=== PATIENT | male | born 1940 | race Caucasian/White ===

== ENCOUNTER 2017-07-22 16:11 | Observation (INO) | payer MEDICARE ==
[2017-07-22] MEDS ORDERED: Morphine 4 MG/ML Carpuject ONE (16:27)
[2017-07-22 16:43] LABS: #Basophils 0.1 thou/uL (0.0-0.2); #Eosinphils 0.3 thou/uL (0.0-0.7); #Lymphocytes 2.1 thou/uL (1.20-3.40); #Monocytes 0.9 thou/uL (0.11-0.59); #Neutrophils 7.2 thou/uL (1.40-6.50); %Basophils 0.7 % (0.0-1.0); %Eosinophils 2.4 % (0.0-10.0); %Lymphocytes 19.9 % (21.0-51.0); %Monocytes 8.5 % (0.0-10.0); %Neutrophils 68.5 % (42.0-75.0); Hemoglobin 14.1 g/dL (14.0-18.0); Mean Corpuscular HGB CONC 33.2 g/dL (32.0-36.0); Mean Corpuscular Hemoglobin 33.5 pg (27.0-31.0); Mean Platelet Volume 7.1 fL (7.4-10.4); Platelet Count 156 thou/uL (130-400); RBC Distribution Width 12.1 % (11.5-14.5); Red Blood Cell (RBC) Count 4.22 mill/uL (4.70-6.10); White Blood Cell (WBC) Count 10.6 thou/uL (4.8-10.8)
[2017-07-22 17:04] LABS: Anion Gap 16 mmol/L (10-20); BUN (Urea Nitrogen) 27 mg/dL (8.4-25.7); Calc. Creatinine Clearance 0 mL/min (70-130); Calcium 8.8 mg/dL (7.8-10.44); Carbon Dioxide 27 mmol/L (23-31); Chloride 99 mmol/L (98-107); Estimated GFR-MDRD 46; Glucose 98 mg/dL (83-110); Potassium 4.5 mmol/L (3.5-5.1); Sodium 137 mmol/L (136-145)
[2017-07-22 18:17] LABS: Bilirubin Negative (Negative); Blood, Urine Negative (Negative); Clarity CLEAR (Clear); Glucose, Urine (Dipstick) Negative (Negative); Leukocyte Negative (Negative); Nitrite Negative (Negative); Protein, Urine (Dipstick) Negative (Neg-Trace); Specific Gravity, Urine 1.016 (1.002-1.036); Urobilinogen 0.2 mg/dL (0.2-1.0)
[2017-07-22] MEDS ORDERED: Sodium Chloride 0.9% 1,000 ML IV SCH (19:47)
[2017-07-22] MEDS ORDERED: Ondansetron ODT 4 MG TAB SL PRN (19:47)
[2017-07-22] MEDS ORDERED: Ondansetron HCl/PF 4 MG/2 ML Vial IVP PRN (19:47)
[2017-07-22] MEDS ORDERED: Melatonin 3 MG TAB PO PRN (19:50)
[2017-07-22] MEDS ORDERED: Ketorolac Tromethamine 30 MG/ML VIAL IVP PRN (19:50)
[2017-07-22] MEDS ORDERED: Guaifenesin DM 100-10/5 ML UDCUP PO PRN (19:50)
[2017-07-22] MEDS ORDERED: traMADol HCl 50 MG TAB PO PRN (19:56)
[2017-07-22] MEDS ORDERED: Morphine 2 MG/ML SYRINGE SLOW IVP PRN (19:57)
[2017-07-22] MEDS ORDERED: cefTRIAXone\\ROCEPHIN 1 GM in Sodium Chloride 0.9% 100 ML IVPB SCH (20:00)
[2017-07-22] MEDS: traMADol HCl 50 MG TAB PO PRN (21:12)
[2017-07-22] MEDS: Sodium Chloride 0.9% 1,000 ML IV SCH (21:13)
[2017-07-22] MEDS: Tamsulosin HCl 0.4 MG CAP PO SCH ×2 (21:13→21:49)
[2017-07-22] MEDS: cefTRIAXone\\ROCEPHIN 1 GM, Syringe 0.4 ML in Sterile Water 9.6 ML SLOW IVP SCH (21:14)
[2017-07-22] MEDS: Famotidine 20 MG TAB PO SCH (21:14)
--- NOTE | 2017-07-22 21:38 | HP ---
REASON FOR ADMISSION: Bilateral hydronephrosis with right flank pain. HISTORY OF PRESENTING ILLNESS: The patient gives history of having off and on flank pain on the righ t side with radiation to the groin. These pains would last anywhere from 5-10 minutes. There was no relief with anything he did. He has also had some dark urine and mild fever from last 2 days per darian brasher. The patient states he has had stones in the past in his kidneys and has not really bothered h im. The last he knows was a year back. Currently, there is no flank pain at present. No complaints of chest pain, palpitation, PND or orthopnea. The patient states he ambulates in the house. He als o does mention that he had flu with fever of 102. This was not confirmed by any test, but the patien t knew he had flu. He tried taking wilson tea, Naprosyn and aspirin and he got over it 1 week back, but still has some bronchitis associated with it. PAST MEDICAL AND SURGICAL HISTORY: History of coronary artery disease with prior stent. Last cathet erization done here in 09/2012 showed his OM1 branch was completely occluded. His echo done in 10/19 13 showed EF of 25%. The patient states after that he has had a stent placed and he cannot recall wh ere it was done. History of seizure disorder, prior history of CVA with no residual defects, history of chronic sinusitis with prior mastoid surgery, prior history of peptic ulcer disease, COPD, glauco ma, bilateral carotid stenosis with carotid endarterectomy done on the right side in 04/[address] Fili anna, hypertension, bipolar disorder, history of atrial fibrillation, history of benign prostatic hyp ertrophy, history of V-tach, percutaneous closure of PFO, defibrillator, inguinal hernia repair, card iac ablation for SVT, peptic ulcer surgery done in 1980. CURRENT MEDICATIONS: Please note, the patient cannot recall all of his medications, but he knows he is taking phenytoin 300 mg p.o. at bedtime, clonidine 0.1 mg p.o. at bedtime, DuoNebs p.r.n., and asp irin twice daily. He gets all his medications from [facility] in [place] and will try to obtain the sa me. ALLERGIES: The patient is allergic to ACETAMINOPHEN, AMIODARONE, NORVASC, BETA BLOCKERS, CALCIUM SASHA NNEL BLOCKERS, DEMEROL, DIOVAN, and LEVAQUIN. PERSONAL HISTORY: Does not abuse alcohol or drugs. Does not smoke. FAMILY HISTORY: Father at the age of 59 years, he has had history of heart disease. Mother d at the age of 73 years, she has had dementia. REVIEW OF SYSTEMS: The following complete review of systems was negative, unless otherwise mentioned in the HPI or below: Constitutional: Weight loss or gain, ability to conduct usual activities. Skin: Rash, itching. Eyes: Double vision, pain. ENT/Mouth: Nose bleeding, neck stiffness, pain, tenderness. Cardiovascular: Palpitations, dyspnea on exertion, orthopnea. Respiratory: Shortness of breath, wheezing, cough, hemoptysis, fever or night sweats. Gastrointestinal: Poor appetite, abdominal pain, heartburn, nausea, vomiting, constipation, or diarr hea. Genitourinary: Urgency, frequency, dysuria, nocturia. Musculoskeletal: Pain, swelling. Neurologic/Psychiatric: Anxiety, depression. Allergy/Immunologic: Skin rash, bleeding tendency. PHYSICAL EXAMINATION: GENERAL: The patient is a 76-year-old male, who is currently not in any acute distress. VITAL SIGNS: Blood pressure 130/70, pulse 70 per minute, respiratory rate 16 per minute, temperature 98.6 degrees Fahrenheit, saturating 97% on room air. NECK: Supple, no elevated JVD. HEENT: Eyes: Extraocular muscles are intact. Pupils are reacting to light. Oral cavity: Mucous m embranes are dry. No exudates or congestion. CARDIOVASCULAR SYSTEM: S1, S2 heard. Regular rhythm. RESPIRATORY SYSTEM: Air entry 1+ bilateral. Scattered rhonchi plus no rales or wheezes. ABDOMEN: Soft, bowel sounds heard. No tenderness, rigidity or guarding. No CVA angle tenderness at present. EXTREMITIES: No peripheral edema or calf tenderness. VASCULAR SYSTEM: Peripheral pulses 1+ bilateral. No ischemic ulcerations or gangrene. CENTRAL NERVOUS SYSTEM: No gross focal deficits seen. The patient is alert and oriented well. PSYCHIATRIC SYSTEM: The patient's mood is euthymic. No hallucinations or delusions. LABORATORY AND X-RAY FINDINGS: White count of 10, H&H 14 and 42, platelet count 156, MCV is 101 with 68% neutrophils. Electrolytes are stable. BUN 27, creatinine 1.4. Serum bicarbonate is 27. UA sh ows trace blood with trace leukocyte esterase. Abdominal pelvic CAT scan done at [facility] from ere he was transferred here shows severe bilateral hydronephrosis, right hydronephrosis with a 4-mm u reteral calculus at the S1 level. There is severe stranding around the kidneys suggestive of high gr griffin obstruction. There is also severe left hydronephrosis with hydroureter all the way to the left U VJ. No stone is seen on the left side. This is a new finding when compared to prior CAT scan done i 2014. EKG done shows paced rhythm at 70 beats per minute, has a wide QRS, duration nearly 134 mill iseconds. CLINICAL IMPRESSION AND PLAN: The patient will be under observation on medical floor for bilateral h ydronephrosis with likely postobstructive uropathy with a history of prostatic hyperplasia. We will try to place a Jack catheter. Dr. Beth Galvan, urologist, has been consulted by ER physician in e ER. We will continue him on normal saline at 60 mL per hour along with his phenytoin and Toradol p .r.n. for ureteric colic. He has been placed on Flomax 0.4 mg twice daily by Dr. Galvan. The patien t is allergic to LEVAQUIN and we will place him on ceftriaxone 1 gram daily with stat urine and blood cultures as well. The patient has low ejection fraction of around 25% based on prior echo done in . He follows up with Dr. Ross at [facility]. He also sees Dr. Roque for Nephr ology. Code status was discussed with patient and he does not want to be resuscitated. His power of litigation attorney associate is his daughter or his fiancee, either one is fine with him.
[2017-07-22 22:34] VITALS: BMI 28.2
[2017-07-23] MEDS: traMADol HCl 50 MG TAB PO PRN (01:53)
[2017-07-23 05:30] LABS: #Eosinphils 0.2 thou/uL (0.0-0.7); #Lymphocytes 1.5 thou/uL (1.20-3.40); #Monocytes 0.7 thou/uL (0.11-0.59); #Neutrophils 5.6 thou/uL (1.40-6.50); %Basophils 0.5 % (0.0-1.0); %Eosinophils 2.2 % (0.0-10.0); %Lymphocytes 18.3 % (21.0-51.0); %Monocytes 8.9 % (0.0-10.0); Hemoglobin 12.4 g/dL (14.0-18.0); Mean Corpuscular HGB CONC 34.2 g/dL (32.0-36.0); Mean Corpuscular Hemoglobin 34.6 pg (27.0-31.0); Mean Platelet Volume 7.2 fL (7.4-10.4); Platelet Count 137 thou/uL (130-400); RBC Distribution Width 12.1 % (11.5-14.5); Red Blood Cell (RBC) Count 3.57 mill/uL (4.70-6.10)
[2017-07-23 05:46] LABS: Anion Gap 13 mmol/L (10-20); BUN (Urea Nitrogen) 24 mg/dL (8.4-25.7); Calc. Creatinine Clearance 50 mL/min (70-130); Calcium 8.4 mg/dL (7.8-10.44); Carbon Dioxide 26 mmol/L (23-31); Chloride 100 mmol/L (98-107); Estimated GFR-MDRD 50; Glucose 126 mg/dL (83-110); Potassium 4.3 mmol/L (3.5-5.1); Sodium 135 mmol/L (136-145)
[2017-07-23] MEDS: Famotidine 20 MG TAB PO SCH ×2 (08:30→22:23)
[2017-07-23] MEDS: Ubidecarenone 50 MG CAP PO SCH (08:30)
[2017-07-23] MEDS: Tamsulosin HCl 0.4 MG CAP PO SCH ×3 (08:31→22:26)
--- NOTE | 2017-07-23 11:54 | PDOC.PN ---
- Subjective Encounter Start Date: 07/23/17 Encounter Start Time: 09:45 Subjective: no new complaints -: says is planning some procedure this afternoon -: no abd pain now - Objective Resuscitation Status: Resuscitation Status DNR:Do Not Resuscitate MAR Reviewed: Yes Vital Signs & Weight: Vital Signs (12 hours) Temp Pulse Resp BP Pulse Ox 07/23/17 08:00 97.7 F 72 12 147/76 H 91 L 07/23/17 04:00 98.3 F 70 18 135/76 93 L 07/23/17 00:36 98.7 F 69 18 111/68 92 L Weight Weight 175 lb 0.047 oz I&O: 07/22/17 07/23/17 07/24/17 06:59 06:59 06:59 Output Total 500 Balance -500 Result Diagrams: 07/23/17 04:48 07/23/17 04:48 Phys Exam - Physical Examination HEENT: PERRLA, moist MMs Neck: no JVD, supple Respiratory: no wheezing, no rales Cardiovascular: RRR, no significant murmur Gastrointestinal: soft, non-tender, positive bowel sounds Musculoskeletal: no edema, pulses present Neurological: non-focal, moves all 4 limbs Psychiatric: A&O x 3 Dx/Plan (1) b/l hydronephrosis Status: Acute (2) Left ureteral stone Code(s): N20.1 - CALCULUS OF URETER Status: Acute (3) CAD (coronary artery disease) Code(s): I25.10 - ATHSCL HEART DISEASE OF [place] CORONARY ARTERY W/O ANG PCTRS Status: Chronic Qualifiers: Coronary Disease-Associated Artery/Lesion type: [place] artery [place] vs. transplanted heart: [place] heart Associated angina: without angina Qualified Code(s): I25.10 - Atherosclerotic heart disease of [place] coronary artery without angina pectoris (4) HTN (hypertension) Code(s): I10 - ESSENTIAL (PRIMARY) HYPERTENSION Status: Chronic Qualifiers: Hypertension type: essential hypertension Qualified Code(s): I10 - Essential (primary) hypertension - Plan on ceftriaxone and gentle iv hydration -: dc plan per urology advice -: pt is under observation status, may switch to inpt per urology advice if he -: -remains in hospital tonight -: urine cs shows no growth * . Review of Systems - Medications/Allergies Allergies/Adverse Reactions: Allergies Allergy/AdvReac Type Severity Reaction Status Date / Time acetaminophen [From Tylenol] Allergy Unknown Verified 12/11/12 22:15 amiodarone Allergy Verified 04/01/15 09:34 amlodipine Allergy Verified 07/22/17 22:40 ARB-Angiotensin Receptor Allergy Verified 04/01/15 09:35 Antagonist Calcium Channel Blocking Allergy Verified 07/22/17 22:40 Agent Dilt levofloxacin [From Levaquin] Allergy Verified 07/22/17 22:40 meperidine HCl [From Demerol] Allergy N/V Verified 04/01/15 09:33 valsartan [From Diovan] Allergy Verified 07/23/17 00:31 BETA BLOCKERS Allergy Uncoded 04/01/15 09:35 Medications: Current Medications Albuterol/Ipratropium (Duoneb) 3 ml NEB Q6H PRN PRN Reason: SOB &/or Wheezing Coenzyme Q10 (Coenzyme Q10) 200 mg PO DAILY [facility] Last Admin: 07/23/17 08:30 Dose: Not Given Famotidine (Pepcid) 20 mg PO BID [facility] Last Admin: 07/23/17 08:30 Dose: Not Given Guaifenesin/Dextromethorphan (Robitussin Dm) 15 ml PO Q4H PRN PRN Reason: Cough Sodium Chloride (Normal Saline 0.9%) 1,000 mls @ 60 mls/hr IV .[id number] [facility] Last Admin: 07/22/17 21:13 Dose: 1,000 mls Ceftriaxone Sodium 1 gm/ (Syringe 0.4 ml/ Sterile Water) 10 mls @ 120 mls/hr SLOW IVP 2100 [facility] Last Admin: 07/22/17 21:14 Dose: 10 mls Isosorbide Mononitrate (Imdur Er) 30 mg PO BID [facility] Last Admin: 07/23/17 08:31 Dose: 30 mg Melatonin (Melatonin) 6 mg PO HSPRN PRN PRN Reason: Insomnia Morphine Sulfate (Morphine) 2 mg SLOW IVP Q3H PRN PRN Reason: Pain Phenytoin Sodium (Dilantin Er) 300 mg PO HS [facility] Last Admin: 07/22/17 21:14 Dose: 300 mg Tamsulosin HCl (Flomax) 0.4 mg PO BID [facility] Last Admin: 07/23/17 08:31 Dose: 0.4 mg Tramadol HCl (Ultram) 50 mg PO Q4H PRN PRN Reason: Moderate Pain (4-6) Last Admin: 07/23/17 01:53 Dose: 50 mg Tramadol HCl (Ultram) 100 mg PO Q4H PRN PRN Reason: Severe Pain (7-10) Last Admin: 07/23/17 11:18 Dose: 100 mg
[2017-07-23] MEDS: Carvedilol 3.125 MG TAB PO SCH (13:34)
[2017-07-23] MEDS: Sodium Chloride 0.9% 1,000 ML IV SCH (13:35)
--- NOTE | 2017-07-23 13:44 | CON ---
DATE OF CONSULTATION: 07/23/2017 REASON FOR CONSULTATION: Consultation was requested for right ureteral stone with renal colic as well as left hydronephrosis. HISTORY OF PRESENT ILLNESS: Patient is a 76-year-old male who had right renal colic since with nausea and vomiting and gross hematuria, but no fever , chills, or dysuria. He presented to the emergency room where he was still having significant pain and a CT found the stone with right obstruction, but also what appears to be incidental left hydronephrosis. He had no left-sided pain whatsoever and did not recently pass a stone that he is aware. PAST MEDICAL HISTORY: Significant for stones he had years ago and did not require intervention for the past month around, coronary artery disease with an OK last in 12/2016. Left bundle branch block, TIAs, CVA, epilepsy, bipolar, borderline diabetes, glaucoma, hypertension, COPD, CHF, renal insufficiency, carotid stenosis. PAST SURGICAL HISTORY: Includes defibrillator, mastoid, and sinus surgery, inguinal hernia surgery, cardiac ablation, cardiac stent last in 01/2017 which was the only time and a surgery for his ulcer disease in 1980, right knee surgery, right foot surgery, tonsils, and left toe amputation. MEDICATIONS: Include albuterol inhaler, coenzyme Q10, isosorbide mononitrate 30 mg b.i.d., melatonin 6 mg at bedtime, Dilantin 300 mg at bedtime, aspirin 325 mg b.i.d., and 81 mg as needed for inflammatory pain. ALLERGIES: Multiple blood pressure medicines give him significant arrhythmias including AMIODARONE and CALCIUM CHANNEL BLOCKERS, BETA BLOCKERS give him bronchospasm. He denies any allergy to sulfa. SOCIAL HISTORY: He has at least a [id number] history and quit about 10 years ago, but still smokes once a month or so. REVIEW OF SYSTEMS: He had a colonoscopy 3-5 years ago with polyps and he thinks he is due pretty soon. He has been screened for prostate cancer with PSA and DREs that have been normal. He denies any chest pain. He has an improving cough, because he had the flu recently. He denies shortness of breath , diarrhea, or constipation. FAMILY HISTORY: Significant for mom at 73 of dementia. Dad at 59 of cardiac disease. PHYSICAL EXAMINATION: GENERAL: He appears comfortable in bed. He has been afebrile. Temperature 98.3, heart rate 70, blood pressure 135/76, respiratory rate 18, satting 93% on room air. HEENT: He has no scleral icterus. NECK: No obvious JVD. SKIN: He has good color. HEART: Regular rate and rhythm with no murmurs, gallops, or rubs. LUNGS: Relatively clear to auscultation bilaterally without significant inspiratory effort. ABDOMEN: Softly distended, nontender. There is mild right CVA tenderness, none on the left. GENITOURINARY: Testes were descended bilaterally without masses. Phallus was circumcised without lesions. No meatal stenosis. Digital rectal exam revealed a small and flat prostate without any nodules or induration. No sidewall fixation. EXTREMITIES: He had no lower extremity edema. LABORATORY VALUES: Reveal a dilution of his H and H from overnight from 14.1- 12.4 for hemoglobin and 42.6-36.1 on hematocrit. His BUN and creatinine were 27 and 1.47 and creatinine is improved at 1.37 overnight. Urinalysis, which is a dip only, was all negative. CT scan from 07/22/2017 without contrast reviewed personally revealed 4 flecks ( 1-2mm) in the left kidney and 5 [place] (1-2mm) the right kidney. None of them large enough to be concerned about. He also has a right 3 x 5 mm stone at the crossing vessels, cannot tell on donkey ride operator, no other stones noted. +Enlarged prostate and thickened bladder. ASSESSMENT AND PLAN: In assessment, we have a 76-year-old male with obstructing right ureteral stone and incidental left hydronephrosis with an improved creatinine and adequate urine output of 500 overnight. We reviewed ureteroscopy in getting the small stone and leaving him with a stent. I also reviewed doing a retrograde pyelogram and possible dilation and/or stent placement on the left. So there is the possibility of leaving him with 2 ureteral stents upon waking. Risks and benefits everything reviewed. All questions answered. Plan for right ureteroscopy and stone extraction and left retrograde pyelogram for later today. JANINE
[2017-07-23] MEDS ORDERED: Iothalamate Meglumine 60% 50 ML VIAL FS ONE ×2 (14:43→16:03)
[2017-07-23] MEDS ORDERED: Fentanyl 100 MCG/2 ML VIAL ONE ×2 (15:04→17:35)
[2017-07-23] MEDS ORDERED: Dexamethasone 20 MG/5 ML VIAL ONE (15:57)
[2017-07-23] MEDS ORDERED: PROPOFOL 200 MG/20 ML VIAL ONE (15:57)
[2017-07-23] MEDS ORDERED: Metoclopramide HCl 10 MG/2 ML VIAL ONE (15:57)
[2017-07-23] MEDS ORDERED: Lidocaine 1% PF 5 ML VIAL ONE (15:57)
[2017-07-23] MEDS ORDERED: Ondansetron HCl/PF 4 MG/2 ML Vial ONE (15:57)
[2017-07-23] MEDS ORDERED: Promethazine HCl 25 MG/ML VIAL IM PRN (16:45)
[2017-07-23] MEDS ORDERED: Promethazine HCl 25 MG/ML VIAL SLOW IVP PRN (16:45)
[2017-07-23] MEDS ORDERED: Ondansetron HCl/PF 4 MG/2 ML Vial IVP PRN (16:45)
--- NOTE | 2017-07-23 18:45 | RAD ---
RETROGRADE UROGRAM: Date: 07-23-17 Provided Clinical History: Stent placement. FINDINGS: Spot fluoroscopic image of the abdomen is submitted. Patient respiratory motion limits evaluation. Th e exam is not labelled with respect to side. A ureteral stent overlies the abdomen, the distal coil o f which overlies the expected location of the urinary bladder and the proximal coil overlies the expe cted location of what is presumed to be the right kidney based on the recent CT examination. Collecti ng system contrast is presumed involving the right kidney which demonstrates probable dilatation. Deg enerative changes are seen involving the spine. Calcifications are noted in the pelvis. IMPRESSION: As above. POS: DIEGO
--- NOTE | 2017-07-23 20:36 | OP ---
DATE OF SERVICE: 07/23/2017 PREOPERATIVE DIAGNOSES: Right ureteral stone, left hydronephrosis. POSTOPERATIVE DIAGNOSES: Right ureteral stone, left hydronephrosis with hematuria from the prostate. PROCEDURE: Cystoscopy, right retrograde pyelogram, attempted right ureteroscopy after ureteral orifice dilation, clot evacuation, stent placement 6 x 26. COMPLICATIONS: Hematuria resulting in multiple clots that required changing over to the resectoscope and evacuating with Ellik, so the left side was not evaluated and the stone was not removed. DRAINS: Remaining was a 6 x 26 double-J internal as well as a 22-[place] three- way Jack. SPECIMEN: Urine from the right renal pelvis. BLOOD LOSS: Estimated to be about a 100 mL. INDICATIONS: The patient is a 76-year-old male who is admitted with right renal colic noted to have incidental left hydronephrosis as a reason why he is admitted and let down to attempt spontaneous passage. We discussed getting the stone out and doing a retrograde pyelogram on the left and determining that if there was any obstruction or not and he might end up with 2 stents. He was agreeable with this plan. Of note, he reported taking 2 regular aspirin 325 mg daily and 81 mg as needed, which is usually daily and these were not held prior to the case. The patient was brought to the room by Anesthesia, laid on the table in the supine position. After receiving a general anesthetic, legs were placed in lithotomy position and his left leg elevated and right leg lowered. Cystoscope was brought into the bladder and significant oozing from the prostate was noted immediately. The right ureteral orifice was identified and intubated with Pollack catheter. I needed a wire to aid in this and then a retrograde pyelogram was performed revealing proximal coiling of the right ureter and the wire was advanced up to what initially was thought to be the level of the renal pelvis and the Pollack catheter advanced beyond that feeling resistance at the level of the stone seen on CT, which was about the crossing vessels. I could not straighten out the coil in the proximal ureter, so I got a Super Stiff wire which was able to straighten this out and then attempted to advance the Pollack catheter, but it was coiled still and it actually had a 180 degree bend in it, so this was removed in its entirety and another Pollack catheter was obtained, finally inserted up into the renal pelvis where approximately 10 mL asymmetric urine was extracted and sent for specimen and the regular wire was left in place. During this time, the bladder was filling with clot and it is difficult to evaluate the UO. At this point, the UO was dilated, the sheath was placed over the wire and dilated to 12 mmHg. Fluoroscopy confirmed adequate dilation and then this was brought down and taken out. Then I spent significant time trying to follow the wire and find the UO, but given all the clot, I was not able to do this. I attempted to put the scope in and get the clot out and then try, but the scope was getting clotted from the significant size clot. When the scope was removed and resectoscope being obtained, the patient actually expelled a decent size clot from his clot retention. The resectoscope was put back and irrigated, and at this point, I opted to just place a stent. I was not going to attempt further manipulation at this time, so the resectoscope was removed. The cystoscope back fed over the wire and a 6 x 26 double J was placed over the wire with good curl visualized in the renal pelvis and a good curl visualized in the bladder. It was adjusted with a grasper appropriately and an Ellik evacuator was used to get the rest of the clot out of the bladder. On the last look into the bladder, there was no significant clot but still significant oozing from the prostate bladder neck. Cystoscope was removed after leaving the wire in place and a 22-[place] three-way was placed over the wire and hooked up to CBI. The patient tolerated the procedure well and was then awakened and transferred to the PACU in stable condition. JANINE
[2017-07-23] MEDS: cefTRIAXone\\ROCEPHIN 1 GM, Syringe 0.4 ML in Sterile Water 9.6 ML SLOW IVP SCH (22:22)
[2017-07-24 05:31] LABS: #Eosinphils 0.2 thou/uL (0.0-0.7); #Monocytes 0.9 thou/uL (0.11-0.59); %Basophils 0.5 % (0.0-1.0); %Eosinophils 1.9 % (0.0-10.0); %Monocytes 9.5 % (0.0-10.0); Mean Corpuscular HGB CONC 33.1 g/dL (32.0-36.0); Mean Corpuscular Hemoglobin 33.8 pg (27.0-31.0); Mean Platelet Volume 7.5 fL (7.4-10.4); Platelet Count 130 thou/uL (130-400); RBC Distribution Width 12.2 % (11.5-14.5); Red Blood Cell (RBC) Count 3.26 mill/uL (4.70-6.10)
[2017-07-24 07:31] LABS: Calcium 8.3 mg/dL (7.8-10.44); Chloride 106 mmol/L (98-107); Glucose 96 mg/dL (83-110); Potassium 4.8 mmol/L (3.5-5.1); Sodium 137 mmol/L (136-145)
[2017-07-24 07:33] LABS: Anion Gap 14 mmol/L (10-20); Carbon Dioxide 22 mmol/L (23-31)
[2017-07-24 07:35] LABS: Calc. Creatinine Clearance 66 mL/min (70-130); Estimated GFR-MDRD 70
[2017-07-24 07:36] LABS: BUN (Urea Nitrogen) 20 mg/dL (8.4-25.7)
[2017-07-24] MEDS: Carvedilol 3.125 MG TAB PO SCH (09:40)
[2017-07-24] MEDS: Tamsulosin HCl 0.4 MG CAP PO SCH (09:40)
[2017-07-24] MEDS: Ubidecarenone 50 MG CAP PO SCH (09:40)
[2017-07-24] MEDS: Famotidine 20 MG TAB PO SCH (09:40)
--- NOTE | 2017-07-24 12:49 | PRG ---
DATE OF SERVICE: 07/24/2017 SUBJECTIVE: The patient is postoperative day #1 from an attempted ureteroscopy aborted given significant prostate bladder neck bleeding, which turned into a clot evacuation. He was kept on CBI overnight and has done well. There has been no need for hand irrigation. I asked for the nurse to stop it about 30 minutes prior to I got there. When I got there, it was draining okay and I hand irrigated for no clots, so at that point, I removed the catheter. OBJECTIVE: Vitals ma, he has been stable with saturations improved to 96%. He is still somewhat hypertensive at 156/85 and he has been afebrile. He put out about 200 of urine overnight. We need to track the irrigant. Laboratory ma, his hemoglobin and hematocrit has dropped to 11.0 and 33.2. His creatinine is improved to 1.03. ASSESSMENT AND PLAN: We have a 76-year-old male status post right stent for obstructing ureteral stone as well as clot evacuation with hematuria controlled and a normalized creatinine. We discussed holding his aspirin between now and next Sunday and bring him back to the operating room for definitive stone treatment as well as further evaluation of his left hydronephrosis. From my standpoint, as long as he voids adequately today and does not need further insertion of a Jack, then he is okay to be discharged again with the instructions on holding his aspirin as well as taking tamsulosin and finasteride between now and then, I have written prescriptions for both. My office will contact him to set up the definitive surgery. JANINE
--- NOTE | 2017-07-24 13:33 | PDOC.PN ---
- Subjective Encounter Start Date: 07/24/17 Encounter Start Time: 09:20 Subjective: had his miller removed this am, has voided once after that -: no pain, no sob - Objective Resuscitation Status: Resuscitation Status DNR:Do Not Resuscitate MAR Reviewed: Yes Vital Signs & Weight: Vital Signs (12 hours) Temp Pulse Resp BP Pulse Ox 07/24/17 08:00 98.6 F 82 20 156/85 H 96 07/24/17 04:23 98.9 F 71 18 110/59 L 92 L Weight Weight 175 lb 0.047 oz I&O: 07/23/17 07/24/17 07/25/17 06:59 06:59 06:59 Intake Total 4460 Output Total 4900 Balance -440 Result Diagrams: 07/24/17 04:55 07/24/17 06:56 Phys Exam - Physical Examination HEENT: PERRLA, moist MMs Neck: no JVD, supple Respiratory: no wheezing, no rales Cardiovascular: RRR, no significant murmur Gastrointestinal: soft, non-tender, positive bowel sounds Musculoskeletal: no edema, pulses present Neurological: non-focal, moves all 4 limbs Psychiatric: A&O x 3 Dx/Plan (1) b/l hydronephrosis Status: Acute Comment: s/p stent to stent to right ureter with cystoscopy 07/23 (2) Left ureteral stone Code(s): N20.1 - CALCULUS OF URETER Status: Acute (3) CAD (coronary artery disease) Code(s): I25.10 - ATHSCL HEART DISEASE OF [place] D[place]-NI' CORONARY ARTERY W/O ANG PCTRS Status: Chronic Qualifiers: Coronary Disease-Associated Artery/Lesion type: [place] artery [place] vs. transplanted heart: [place] heart Associated angina: without angina Qualified Code(s): I25.10 - Atherosclerotic heart disease of [place] coronary artery without angina pectoris (4) HTN (hypertension) Code(s): I10 - ESSENTIAL (PRIMARY) HYPERTENSION Status: Chronic Qualifiers: Hypertension type: essential hypertension Qualified Code(s): I10 - Essential (primary) hypertension - Plan hemostable -: may dc home per urology advice -: to f/u with on for likely more procedures * . Review of Systems - Medications/Allergies Allergies/Adverse Reactions: Allergies Allergy/AdvReac Type Severity Reaction Status Date / Time acetaminophen [From Tylenol] Allergy Unknown Verified 12/11/12 22:15 amiodarone Allergy Verified 04/01/15 09:34 amlodipine Allergy Verified 07/22/17 22:40 ARB-Angiotensin Receptor Allergy Verified 04/01/15 09:35 Antagonist Calcium Channel Blocking Allergy Verified 07/22/17 22:40 Agent Dilt levofloxacin [From Levaquin] Allergy Verified 07/22/17 22:40 meperidine HCl [From Demerol] Allergy N/V Verified 04/01/15 09:33 valsartan [From Diovan] Allergy Verified 07/23/17 00:31 BETA BLOCKERS Allergy Uncoded 04/01/15 09:35 Medications: Current Medications Albuterol/Ipratropium (Duoneb) 3 ml NEB Q6H PRN PRN Reason: SOB &/or Wheezing Carvedilol (Coreg) 3.125 mg PO BID [facility] Last Admin: 07/24/17 09:40 Dose: 3.125 mg Coenzyme Q10 (Coenzyme Q10) 200 mg PO DAILY [facility] Last Admin: 07/24/17 09:40 Dose: 200 mg Famotidine (Pepcid) 20 mg PO BID [facility] Last Admin: 07/24/17 09:40 Dose: 20 mg Guaifenesin/Dextromethorphan (Robitussin Dm) 15 ml PO Q4H PRN PRN Reason: Cough Ceftriaxone Sodium 1 gm/ (Syringe 0.4 ml/ Sterile Water) 10 mls @ 120 mls/hr SLOW IVP 2100 [facility] Last Admin: 07/23/17 22:22 Dose: 10 mls Isosorbide Mononitrate (Imdur Er) 30 mg PO BID [facility] Last Admin: 07/24/17 09:40 Dose: 30 mg Melatonin (Melatonin) 6 mg PO HSPRN PRN PRN Reason: Insomnia Morphine Sulfate (Morphine) 2 mg SLOW IVP Q3H PRN PRN Reason: Pain Phenytoin Sodium (Dilantin Er) 300 mg PO HS [facility] Last Admin: 07/23/17 22:23 Dose: 300 mg Tamsulosin HCl (Flomax) 0.4 mg PO BID [facility] Last Admin: 07/24/17 09:40 Dose: 0.4 mg Tramadol HCl (Ultram) 50 mg PO Q4H PRN PRN Reason: Moderate Pain (4-6) Last Admin: 07/23/17 01:53 Dose: 50 mg Tramadol HCl (Ultram) 100 mg PO Q4H PRN PRN Reason: Severe Pain (7-10) Last Admin: 07/23/17 11:18 Dose: 100 mg
[2017-07-24 14:18] VITALS: BP 150/78; TEMP 98.7
--- NOTE | 2017-07-24 23:28 | DIS ---
DATE OF ADMISSION: 07/22/2017 DATE OF DISCHARGE: 07/24/2017 DISCHARGE DISPOSITION: To home. PRIMARY DISCHARGE DIAGNOSES: Bilateral hydronephrosis, left ureteral stone. Patient has had cystoscopy with stenting done on the right side on July 23, 2017. SECONDARY DISCHARGE DIAGNOSES: Coronary artery disease, hypertension. PROCEDURES DONE DURING HOSPITALIZATION: CT of the abdomen and pelvis without contrast stone protocol done showed bilateral hydronephrosis. There was 4 mm ureteral calculus at the upper sacral level, severe perinephric stranding around and below this kidney suggesting a high-grade obstruction. There was no calculi seen on the left side, though bilateral nonobstructing renal calculi seen. There was also a thick walled contracted urinary bladder. Patient had a cystoscopy with stenting on the right side done by Dr. Galvan on 07/23/2017. Urine culture no growth. Blood cultures x2 no growth. Preliminary Gram-stain on the urine obtained from cystoscopy shows no organisms. At 12 hours, there was no growth seen on the specimen. DISCHARGE MEDICATIONS: Patient to continue Coreg 3.125 mg p.o. twice daily, Imdur extended-release 30 mg twice daily, melatonin 5 mg p.o. at bedtime p.r.n. , multivitamin 1 tab once daily, phenytoin extended-release 300 mg p.o. at bedtime, Flomax 0.4 mg p.o. twice daily. ALLERGIES: TYLENOL, AMIODARONE, NORVASC, ANGIOTENSIN RECEPTOR, ANTAGONISTS. INPATIENT CONSULTS: Dr. Beth Galvan. DISCHARGE PLAN: Patient to follow up with Dr. Beth Galvan, urologist on and primary care physician in 1 week. BRIEF COURSE DURING HOSPITALIZATION: Patient initially came in with complaints of right-sided flank pain with radiation to his groin. The initial CT stone protocol done showed bilateral hydronephrosis with ureteral stone at the S1 level on the right side. He has had consultation with Dr. Galvan. Patient had cystoscopy with placement of stent on the right side. The patient during the procedure had hematuria and multiple clots and the procedure had to be abandoned after placing stent. He was on a 3-way Jack catheter with continuous bladder irrigation, which was discontinued this morning. He has had his Jack removed and patient is voiding. He will be shortly discharged per Dr. Beth Galvan's advice. He needs to follow up with urologist on for further procedures per Urology. Patient also needs to follow up with primary care physician in 1 week. Please see a face to face docomentation on [facility] for the day of discharge. JANINE
--- NOTE | 2017-08-11 16:10 | EKG ---
Test Reason : Blood Pressure : / mmHG Vent. Rate : 070 BPM Atrial Rate : 070 BPM P-R Int : 000 ms QRS Dur : 134 ms QT Int : 454 ms P-R-T Axes : -18 -64 043 degrees QTc Int : 490 ms Ventricular-paced rhythm Abnormal ECG Confirmed by ALBERTO SNELL M.D. ([id number]), editor managing newspaper LORETO LOMBARDO ([id number]) on 08/11/2017 4:09:38 PM Referred By: Confirmed By:ALBERTO SNELL M.D.
== END 2017-07-24 15:41 | disposition home or self-care (01) ==
LOC: ERS 16:11 → SURG B 17:23
PROVIDERS: ADMIT Internal Medicine; ATTEND Internal Medicine
PROC: 0T7D8DZ Dilation of Urethra with Intraluminal Device, Via Natural or Artificial Opening Endoscopic (ICD-10-PCS; principal; 2017-07-23)
PROC: 0T768ZZ Dilation of Right Ureter, Via Natural or Artificial Opening Endoscopic (ICD-10-PCS; 2017-07-23)
PROC: BT1D1ZZ Fluoroscopy of Right Kidney, Ureter and Bladder using Low Osmolar Contrast (ICD-10-PCS; 2017-07-23)
PROC: 0TCB8ZZ Extirpation of Matter from Bladder, Via Natural or Artificial Opening Endoscopic (ICD-10-PCS; 2017-07-23)
DX: N13.2 Hydronephrosis with renal and ureteral calculous obstruction (principal); R31.9 Hematuria, unspecified; I25.10 Atherosclerotic heart disease of native coronary artery without angina pectoris; I25.2 Old myocardial infarction; I44.7 Left bundle-branch block, unspecified; I11.0 Hypertensive heart disease with heart failure; I50.9 Heart failure, unspecified; I48.91 Unspecified atrial fibrillation; F31.9 Bipolar disorder, unspecified; G40.909 Epilepsy, unspecified, not intractable, without status epilepticus; J44.9 Chronic obstructive pulmonary disease, unspecified; Z86.73 Personal history of transient ischemic attack (TIA), and cerebral infarction without residual deficits; Z86.010 Personal history of colon polyps; Z87.891 Personal history of nicotine dependence; Z79.82 Long term (current) use of aspirin; Z79.899 Other long term (current) drug therapy; Z88.1 Allergy status to other antibiotic agents; Z88.5 Allergy status to narcotic agent; Z88.8 Allergy status to other drugs, medicaments and biological substances; Z95.810 Presence of automatic (implantable) cardiac defibrillator; Z89.422 Acquired absence of other left toe(s); Z98.890 Other specified postprocedural states; Z90.49 Acquired absence of other specified parts of digestive tract
CPT/HCPCS: 51701; 52001; 52332; 52344; 74420; 80048 ×3; 81003; 82962; 85025 ×3; 87040; 87070; 87075; 87086; 87205; 93005; 96374; 96375; 96376; 97139 ×2; 99285; C1758; G0378; 36415; 36416; A4216; J0696; J1100; J2001; J2270; J2405; J2704; J2765; J3010; Q9961

== ENCOUNTER 2017-07-31 06:57 | Day surgery (SDC) | payer MEDICARE ==
[2017-07-31] MEDS ORDERED: cefTRIAXone\\ROCEPHIN 1 GM, Syringe 0.4 ML in Sterile Water 9.6 ML SLOW IVP SCH (07:45)
[2017-07-31] MEDS ORDERED: Iothalamate Meglumine 60% 50 ML VIAL FS ONE (08:57)
[2017-07-31] MEDS ORDERED: Fentanyl 100 MCG/2 ML VIAL ONE (10:30)
[2017-07-31] MEDS ORDERED: Furosemide 40 MG/4 ML VIAL ONE (11:54)
[2017-07-31] MEDS ORDERED: Phenazopyridine HCl 97.5 MG TABLET ONE ×2 (13:28→13:33)
--- NOTE | 2017-07-31 13:44 | OP ---
DATE OF PROCEDURE: 07/31/2017 PREOPERATIVE DIAGNOSES: Right ureteral stone, left hydronephrosis. POSTOPERATIVE DIAGNOSES: Right ureteral stone, left hydronephrosis. PROCEDURE: Cystoscopy, right ureteroscopy, right holmium laser lithotripsy, stone basketing, stent p lacement 6 x 20, attempted left retrograde pyelogram; however, I was unable to identify the right UO. SURGEON: Beth Galvan M.D. ANESTHESIA: General with laryngeal mask airway. SPECIMENS: Stone from the right ureter. COMPLICATIONS: Unable to find left UO. BLOOD LOSS: Minimal. INDICATIONS: The patient is a 76-year-old male who was admitted acutely with a right obstructing sto ne and left hydronephrosis without any obvious etiology and urgently had attempted ureteroscopy, but was only able to place a stent due to significant prostatic bleeding that required clot evacuation an d termination of the rest of the procedure so he returns now having held his aspirin for another atte mpt at ureteroscopy. PROCEDURE IN DETAIL: The patient was brought to the room by Anesthesia, placed in the supine positio n. After receiving general anesthetic, flex lithotomy position his perineum prepped and draped in st erile fashion. A 30 degree lens and a 22-[place] cystoscope was used to traverse the urethra and into the bladder. Stent was grasped and brought out through the urethral meatus. A wire was then placed through this removing the stent itself and leaving the wire in place. Attempts at following the wir e up to the orifice failed. So I placed the cystoscope back in a second wire and then followed the u reteroscope up the wire. Before completing this, we actually used a double lumen catheter in order t o place a second wire instead which worked nicely. Then, I traversed this second wire all the way to the level of the stone where the wire was removed and laser lithotripsy was performed. It was alrea dy in 2 fragments and I busted this into 3, I grabbed one of those 3 and brought it out through the u rethral meatus. I went back again, but again required the double lumen catheter to get into the uret er and then up to the level of the stones which were then grasped the two large remaining fragments a nd brought out and sent for specimen. Then, leaving the wire in place on the right side. I attempte d to find the left UO, the prostate middle lobe was difficult and in the way of going back and forth trying to compare for symmetry, I gave him methylene blue and Lasix, but I was unable to find it afte r this, so after significant effort and approximately 15 minutes of searching, I simply gave up on fi nding the left UO and back fed the wire over the cystoscope and placed a 20 x 6 double-J stent over t he wire with good curl visualized in the renal pelvis via fluoroscopy and a good curl visualized in t he bladder via cystoscopy. Scope was removed and bladder drained and removed carefully leaving the s tring intact was then secured to the patient's penis with tape. He was then awakened and transferred to the PACU in stable condition.
[2017-07-31] MEDS ORDERED: B & O ONE (14:46)
[2017-07-31] MEDS ORDERED: Ondansetron HCl/PF 4 MG/2 ML Vial ONE (15:30)
[2017-07-31] MEDS ORDERED: PROPOFOL 200 MG/20 ML VIAL ONE (15:30)
[2017-07-31] MEDS ORDERED: Lidocaine 1% PF 5 ML VIAL ONE (15:30)
[2017-07-31] MEDS ORDERED: PHENYLEPHRINE-NS 100 MCG/ML 10 ML SYRINGE ONE (15:30)
[2017-08-07 10:21] LABS: CA Oxalate Monohydrate 95 % (.); Color Brown (.); Stone Weight 12.4 mg (.)
== END 2017-07-31 18:40 | disposition home or self-care (01) ==
LOC: SDC 06:57
PROVIDERS: ATTEND Urology
PROC: 0TF68ZZ Fragmentation in Right Ureter, Via Natural or Artificial Opening Endoscopic (ICD-10-PCS; principal; 2017-07-31)
PROC: 0T768DZ Dilation of Right Ureter with Intraluminal Device, Via Natural or Artificial Opening Endoscopic (ICD-10-PCS; 2017-07-31)
DX: N20.1 Calculus of ureter (principal); N13.30 Unspecified hydronephrosis; I11.0 Hypertensive heart disease with heart failure; I50.9 Heart failure, unspecified; I44.7 Left bundle-branch block, unspecified; I25.10 Atherosclerotic heart disease of native coronary artery without angina pectoris; I25.2 Old myocardial infarction; I65.29 Occlusion and stenosis of unspecified carotid artery; E11.9 Type 2 diabetes mellitus without complications; J44.9 Chronic obstructive pulmonary disease, unspecified; G40.909 Epilepsy, unspecified, not intractable, without status epilepticus; R73.03 Prediabetes; F31.9 Bipolar disorder, unspecified; F17.210 Nicotine dependence, cigarettes, uncomplicated; Z88.8 Allergy status to other drugs, medicaments and biological substances; Z79.899 Other long term (current) drug therapy; Z90.49 Acquired absence of other specified parts of digestive tract; Z95.0 Presence of cardiac pacemaker; Z95.5 Presence of coronary angioplasty implant and graft; Z98.890 Other specified postprocedural states; Z86.73 Personal history of transient ischemic attack (TIA), and cerebral infarction without residual deficits; Z82.49 Family history of ischemic heart disease and other diseases of the circulatory system
CPT/HCPCS: 52356; 76001; 82365; 88300; Q9968; 74420; A4216; C1758; J0696; J1940; J2001; J2405; J2704; J3010; Q9961

== ENCOUNTER 2017-10-04 14:59 | Inpatient (IN) | payer MEDICARE ==
[2017-10-04] MEDS ORDERED: Succinylcholine Chloride 20 MG/ML 10 ml SYRINGE FS ONE (15:13)
[2017-10-04 15:18] LABS: #Basophils 0.1 thou/uL (0.0-0.2); #Eosinphils 0.3 thou/uL (0.0-0.7); #Lymphocytes 3.2 thou/uL (1.20-3.40); #Monocytes 0.5 thou/uL (0.11-0.59); #Neutrophils 10.1 thou/uL (1.40-6.50); %Eosinophils 2.3 % (0.0-10.0); %Lymphocytes 22.1 % (21.0-51.0); %Monocytes 3.4 % (0.0-10.0); %Neutrophils 71.1 % (42.0-75.0); Hemoglobin 11.7 g/dL (14.0-18.0); Mean Corpuscular HGB CONC 33.6 g/dL (32.0-36.0); Mean Platelet Volume 7.2 fL (7.4-10.4); Platelet Count 296 thou/uL (130-400); RBC Distribution Width 11.9 % (11.5-14.5); Red Blood Cell (RBC) Count 3.45 mill/uL (4.70-6.10); White Blood Cell (WBC) Count 14.2 thou/uL (4.8-10.8)
[2017-10-04 15:20] LABS: INR-International Normal Ratio 1.2; Prothrombin Time 15.3 SEC (12.0-14.7)
[2017-10-04 15:21] LABS: PTT 27.7 SEC (22.9-36.1)
--- NOTE | 2017-10-04 15:26 | RAD ---
AP CHEST: Indication: Shortness of breath. Comparison: 02-02-16 FINDINGS: There is cardiomegaly, pulmonary vascular congestion and perihilar airspace opacity suspicious for ed roel. There are small bilateral pleural effusions. No pneumothorax is evident. Dual-lead AICD is uncha nged. No acute osseous abnormality is evident. IMPRESSION: Findings suggesting CHF. POS: [facility]
[2017-10-04] MEDS ORDERED: Propofol 1,000 MG/100 ML VIAL IV ONE (15:28)
[2017-10-04 15:29] LABS: ALT (SGPT) 61 U/L (8-55); AST (SGOT) 82 U/L (5-34); Albumin 3.9 g/dL (3.4-4.8); Alkaline Phosphatase 200 U/L (40-150); Anion Gap 18 mmol/L (10-20); BUN (Urea Nitrogen) 26 mg/dL (8.4-25.7); Bilirubin, Total 0.2 mg/dL (0.2-1.2); Calc. Creatinine Clearance 0 mL/min (70-130); Calcium 8.5 mg/dL (7.8-10.44); Carbon Dioxide 20 mmol/L (23-31); Chloride 104 mmol/L (98-107); Estimated GFR-MDRD 52; Globulin 3.3 g/dL (2.4-3.5); Glucose 288 mg/dL (83-110); Lipase 23 U/L (8-78); Potassium 5.9 mmol/L (3.5-5.1); Protein, Total 7.2 g/dL (5.8-8.1); Sodium 136 mmol/L (136-145)
[2017-10-04 15:33] LABS: CKMB 2.2 ng/mL (0-6.6); Troponin I 0.017 ng/mL (< 0.028)
--- NOTE | 2017-10-04 15:48 | RAD ---
AP CHEST: Indication: Emergency room examination. FINDINGS: Since the comparison examination the patient has been intubated. The tip of the ET tube is seen 5 cm above the level of the maxi, just below the thoracic inlet. Gastric catheter projects below the lef t hemidiaphragm and beyond the field of view. There is improved aeration of the lungs. There is perih ilar opacity suspicious for edema. Cardiomegaly persists. Pulmonary vascular congestion persists. The re are tiny bilateral pleural effusions. No pneumothorax is evident. IMPRESSION: 1. Interval intubation with gastric catheter placement. 2. Stable findings of CHF. POS: [facility]
[2017-10-04 15:54] LABS: CO2 Tension 67.9 mmHg (35.0-45.0); pH, Arterial 7.19 (7.35-7.45)
[2017-10-04 15:55] LABS: Actual Bicarbonate (HCO3a) 25.4 mEq/L (22-26); Base Excess (BEa) -3.7 mEq/L (0 (+/-) 2.5); Hematocrit-ABG 35.2 % (42.0-52.0); Hemoglobin (Hb) 11.1 g/dL (14.0-18.0); O2 Tension (PaO2) 105.4 mmHg (80.0-100.0)
[2017-10-04 15:57] LABS: ALV-art Gradient 237.525 (0-20); Analyzer IN Cardio ER; Calcium, Ionized 1.2 mmol/L (1.12-1.30); Puncture Site RBRACH
[2017-10-04] MEDS ORDERED: Fentanyl 100 MCG/2 ML VIAL SLOW IVP SCH (16:15)
[2017-10-04] MEDS ORDERED: Albuterol Sulfate 2.5 mg/0.5 ml Neb ONE (16:20)
[2017-10-04] MEDS ORDERED: Albuterol Sulfate 2.5 mg/3 ml Neb ONE (16:21)
[2017-10-04] MEDS ORDERED: Fentanyl 100 MCG/2 ML VIAL ONE (16:22)
[2017-10-04] MEDS ORDERED: Propofol 1,000 MG/100 ML VIAL IV PRN (16:26)
[2017-10-04] MEDS ORDERED: fentaNYL Citrate/PF 2,000 MCG in Sodium Chloride 0.9% 60 ML IV SCH (16:29)
[2017-10-04] MEDS ORDERED: Vancomycin HCl 1.25 GM in Sodium Chloride 0.9% 250 ML 250 ML IVPB SCH (16:30)
[2017-10-04] MEDS ORDERED: Cefepime 2 GM, Syringe 2.5 ML in Sodium Chloride 0.9% 10 ML SLOW IVP SCH (16:30)
[2017-10-04] MEDS ORDERED: Sodium Chloride 0.9% 250 ML IVPB SCH (16:30)
[2017-10-04 17:02] LABS: Bilirubin Negative (Negative); Blood, Urine Small (Negative); Clarity CLEAR (Clear); Glucose, Urine (Dipstick) Negative (Negative); Leukocyte Negative (Negative); Nitrite Negative (Negative); Protein, Urine (Dipstick) 30 mg/dL (Neg-Trace); Specific Gravity, Urine 1.015 (1.002-1.036); Urobilinogen 0.2 mg/dL (0.2-1.0)
[2017-10-04 17:03] LABS: Bacteria/HPF None Seen HPF (None Seen); Hyaline Casts/LPF 4-6 HYALINE CAST LPF (0-3 Hyaline); WBC/HPF 0-3 HPF (0-3)
[2017-10-04 17:14] LABS: Transitional Epithelial NONE SEEN HPF (0-3)
[2017-10-04] MEDS ORDERED: RENALLY ADJUST ABX IVPB PRN (17:20)
[2017-10-04] MEDS ORDERED: Bisacodyl 10 MG SUPP PR PRN (17:21)
[2017-10-04] MEDS ORDERED: Norepinephrine 8 MG/0.9% NS 250 ML IVPB PRN (17:21)
[2017-10-04] MEDS ORDERED: Bisacodyl 5 MG TAB PO PRN (17:21)
[2017-10-04] MEDS ORDERED: Ondansetron HCl/PF 4 MG/2 ML Vial IVP PRN (17:21)
[2017-10-04] MEDS ORDERED: Vancomycin HCl 1 GM in Premix Bag 1 BAG IVPB SCH (17:30)
[2017-10-04 17:53] VITALS: BMI 30.4
--- NOTE | 2017-10-04 18:37 | HP ---
PRIMARY CARE PHYSICIAN: Bethany You D.O. CHIEF COMPLAINT: Shortness of breath. HISTORY OF PRESENT ILLNESS: Mr. Knowles is a 77-year-old gentleman who was seen at [facility] on 10/04/2017. He is a resident of [facility]. The patient is currently intubated and mechanically ventilated, unable to provide any history. History was obtaine d from discussion with the emergency room physician as well as review of medical records. Mr. Knowles was hospitalized at [facility] in 07/2017 for bilateral hydrone phrosis and left ureteral stone. He had cystoscopy with stenting done on the right side on 8. He was reportedly [facility]. He had been short of breath f or the last 3 days, worse today. His oxygen saturations were 50% to 70% on room air when EMS saw the patient. He received three nitrospray, four baby aspirin and one DuoNeb. Because of concern over S T elevation myocardial infarction on electrocardiogram, he was brought to the hospital on a STEMI pro tocol. He was seen by Cardiology Service. He was found to be not having a ST elevation myocardial i nfarction. Meanwhile, his breathing worsened. He was intubated by the emergency room physician. REVIEW OF SYSTEMS: Could not be obtained. PAST MEDICAL HISTORY: Significant for coronary artery disease, status post PCI with stent; seizure d isorder; cerebrovascular accident with no residual defects; chronic sinusitis with prior mastoid surg david; peptic ulcer disease; COPD; glaucoma; bilateral carotid stenosis; hypertension; bipolar disorder ; atrial fibrillation; benign prostatic hypertrophy; ventricular tachycardia. In 08/2017, he was adm itted at [facility] in [place] for left displaced femoral neck fracture secondary to a pathologic fracture. Bone biopsy was done. He had multiple metastatic lesions to the bone as w ell as a soft tissue mass in his pelvis. He was started on bicalutamide at that time for metastatic prostate cancer. PAST SURGICAL HISTORY: PCI with coronary stents, mastoid surgery, peptic ulcer surgery in 1980, righ t carotid endarterectomy, percutaneous closure of PFO, defibrillator, inguinal hernia repair, and car diac ablation for supraventricular tachycardia. ALLERGIES: ACETAMINOPHEN, AMIODARONE, NORVASC, BETA BLOCKERS, CALCIUM CHANNEL BLOCKERS, DEMEROL, MADY VAN, and LEVAQUIN. CURRENT MEDICATIONS: Aspirin 325 mg daily, calcium carbonate/vitamin D one tablet 2 times a day, Cor eg 3.125 mg 2 times a day, Casodex 50 mg 1 tablet by mouth daily, chromium picolinate tablet 1 tablet by mouth with meals, clonidine 0.1 mg p.r.n., Dilantin 300 mg at bedtime, Flonase one application to each nostril daily, ibuprofen p.r.n., DuoNebs p.r.n., isosorbide dinitrate 30 mg 2 times a day, Aric aLax 17 grams by mouth daily as needed, multivitamins 1 tablet daily, naproxen 440 mg 2 times a day, Zofran p.r.n., tramadol p.r.n., valerian capsule p.r.n. FAMILY HISTORY: Father at the age of 59 years, he had history of heart disease. Mother had dem entia and at the age of 73 years. SOCIAL HISTORY: He is a [facility]iary resident. He does not use alcohol, drugs or tobacco. CODE STATUS: Could not elicit code status secondary to patient's intubated status. PHYSICAL EXAMINATION: GENERAL: On examination, Mr. Knowles is intubated and mechanically ventilated. VITAL SIGNS: Blood pressure is 83/50. Pulse is 70. He is breathing at rate of 20 and saturating 95 % on ventilator. He is afebrile. EYES: No scleral icterus. No conjunctival pallor. Pupils are approximately 4 mm bilaterally, react jaycob to light. ENT: Endotracheal tube in place. NECK: No thyromegaly, trachea is midline. RESPIRATORY: Accessory muscles of breathing are not active. Chest wall movements are symmetric bila terally. Lungs examination reveals bilateral crackles. CARDIOVASCULAR: S1 and S2 are heard, regular. Peripheral pulses palpable. No carotid bruit, no per icardial rub. ABDOMEN: Soft, nontender, bowel sounds heard, no hepatomegaly, no splenomegaly. NEUROLOGIC: Full neurologic examination not possible secondary to patient's noncooperation. Pupils as described above. No facial droop. No spontaneous limb movements at this time, patient is sedated . Deep tendon reflexes are 2+, plantar is downgoing bilaterally. MUSCULOSKELETAL: No spontaneous limb movements at this time. He has bilateral lower extremity edema . SKIN: No rashes or subcutaneous nodules. LYMPHATIC: No cervical lymphadenopathy. PSYCHIATRIC: Unable to assess mood, affect or orientation to person, place or time. LABORATORY DATA: Mr. Knowles' labs and investigations were reviewed. I reviewed his electrocardi ogram, which shows electronic dual chamber paced rhythm, no ST changes to suggest an acute coronary s yndrome. I also reviewed his chest x-ray, which does not show any obvious pulmonary infiltrates. It appears he has pulmonary edema. He has leukocytosis with 14,200 white cells, of which 71% are neutr ophils, macrocytic anemia with hemoglobin 11.7, normal platelet count. INR 1.2, normal sodium, eleva radha potassium of 5.9, decreased carbon dioxide of 20, elevated blood urea nitrogen of 26, elevated cr eatinine of 1.33, last known creatinine 1.21 on 09/03/2017, elevated AST of 82, elevated ALT of 61, e levated alkaline phosphatase of 200, normal total bilirubin, normal troponin I, elevated BNP of 837.2 , normal TSH, normal lipase and normal albumin. Arterial blood gases show pH of 7.19, pCO2 of 67.9 a nd pO2 of 105. ASSESSMENT AND PLAN: Mr. Knowles is a 77-year-old gentleman who was seen at [facility] on 10/04/2017. His problem list includes: 1. Acute respiratory failure: Hypercapnic: The patient is currently intubated and mechanically tanner tilated. He will be admitted to the hospital for further management. Most likely etiology of respir atory failure is congestive heart failure, given the findings. 2. Congestive heart failure exacerbation: The patient is known to have ischemic cardiomyopathy, wit h left ventricular ejection fraction of 20% to 25% in 2012. We will recheck his echocardiogram. We will provide diuresis as his blood pressure tolerates. 3. Leukocytosis: No clear focus of infection. He has already been started on antibiotics, await cu ltures. 4. Metastatic prostate cancer: Appears to be recently diagnosed. Continue bicalutamide, obtain ext ernal records to better understand his diagnosis. 5. History of gastric ulcer: Start PPI. 6. History of coronary artery disease. Trend troponins. 7. Hypertension: Monitor vital signs, titrate antihypertensives as needed. Many thanks for allowing me to participate in your patient's care. Please feel free to contact me wi th any questions or concerns. LEVEL OF RISK: High. LEVEL OF COMPLEXITY: High.
[2017-10-04 18:59] LABS: Troponin I 0.052 ng/mL (< 0.028)
[2017-10-04 19:53] LABS: Lactic Acid 1.2 mmol/L (0.5-2.2)
[2017-10-04 20:11] LABS: Troponin I 0.058 ng/mL (< 0.028)
[2017-10-04] MEDS ORDERED: Cefepime 2 GM in Sodium Chloride 0.9% 100 ML IVPB SCH (21:00)
[2017-10-04] MEDS ORDERED: Furosemide 40 MG/4 ML VIAL SLOW IVP SCH (21:15)
--- NOTE | 2017-10-05 03:59 | CON ---
DATE OF SERVICE: 10/04/2017 SERVICE: Pulmonary medicine. REASON FOR CONSULTATION: Respiratory failure. HISTORY OF PRESENT ILLNESS: The patient is a 77-year-old white male with past medical history significant for heart failure who presented to the hospital with acute shortness of breath. He was not doing very good when he hit the emergency department and was intubated prior to a feared respiratory arrest. He is a permanent resident of [facility]. It is not clear what the patient's baseline is to me at this point. The report suggests that he was doing well in his usual state of health, but became hypertensive and acutely diaphoretic and developed hypoxemia over a period of roughly 3 days. There are no reports of fevers, cough, or congestion. Initially, STEMI protocol was activated, but he just simply had a paced rhythm. As such, he was deescalated. He was given a dose of Lasix and subsequently placed in the ICU on mechanical ventilation. When he landed in the ICU, we minimize sedation. He was able to nod yes and no appropriately, and make some gestures with his upper extremities. He did not move his lower extremities at this time. He began to have cough and sit up a little bit and so we increased sedation a little bit and I could not obtain additional information from him. PAST MEDICAL HISTORY: 1. Coronary artery disease. 2. Dyslipidemia. 3. Hypertension. 4. COPD. 5. Seizure disorder. 6. History of CVA with no residual deficits noted. 7. Peptic ulcer disease. 8. Glaucoma. 9. Bipolar disorder. 10. Atrial fibrillation. 11. BPH. 12. Widely metastatic prostate cancer. PAST SURGICAL HISTORY: 1. Percutaneous coronary intervention. 2. Mastoid surgery. 3. Peptic ulcer surgery in 1980. 4. Right carotid endarterectomy. 5. Percutaneous closure of PFO. 6. Defibrillator placement. 7. Inguinal hernia repair. 8. Cardiac ablation for supraventricular tachycardia. ALLERGIES: ACETAMINOPHEN, AMIODARONE, NORVASC, BETA BLOCKERS, CALCIUM CHANNEL BLOCKERS, DEMEROL, DIOVAN, LEVAQUIN. MEDICATIONS: List of inpatient medications was reviewed. No specific updates were made at this time. FAMILY HISTORY: Noncontributory. SOCIAL HISTORY: He does not use any alcohol, tobacco, or illicit drug use currently. He is a permanent resident of a nursing facility. REVIEW OF SYSTEMS: This cannot be obtained as the patient is currently on mechanical ventilation, and under the influence of some sedation. PHYSICAL EXAMINATION: VITAL SIGNS: Afebrile. Pulse 70, blood pressure 121/71, respirations 13, saturation 95% on 50% FiO2 and a PEEP of 7. GENERAL: Patient is intubated and sedated. HEENT: Normocephalic, atraumatic. Sclerae are white, conjunctivae pink. Oral and nasal mucosa is moist without lesions. LUNGS: Decent air entry. There are crackles present throughout left basilar lung field. The right lung did not have much in the way of crackles. He has decent air entry with no prolonged expiratory phase. I do not appreciate no wheezing. HEART: Normal rate, regular. ABDOMEN: Soft, nontender, nondistended. Bowel sounds are positive. MUSCULOSKELETAL: No cyanosis or clubbing. There is diffuse 2+ pitting throughout. GENITOURINARY: Jack catheter in place. NEUROLOGIC: Grossly nonfocal. He is certainly able to answer questions appropriately with yes and no nods. He is able to move bilateral upper extremities. LABORATORY DATA: WBC 14.2, hemoglobin 11.7, platelets 296,000. INR 1.2. PH 7.19, pCO2 of 67, pO2 of 105. BNP 837. Troponin 0.058. Magnesium 2.4, lactate is unremarkable. Creatinine is slightly above baseline at 1.33. Potassium 5.9. Basic metabolic profile is otherwise unremarkable. AST and ALT as well as alkaline phosphatase are marginally elevated. Liver function studies are otherwise unremarkable. TSH falls within the normal limits. Urinalysis is unremarkable. IMAGING: Chest x-ray demonstrates endotracheal tube 5 cm above the maxi. There is an enteric catheter courses midline below the level of the diaphragm and out of the field of view. Extensive infiltrates are present bilaterally. Currently B lines are present as well as alveolar and interstitial infiltrates, suggestive of significant volume overload. ASSESSMENT: 1. Acute hypoxic respiratory failure. 2. Acute on chronic systolic and diastolic heart failure. 3. Healthcare-associated pneumonia, unlikely. 4. Elevated transaminases. 5. Prostate cancer, apparently metastatic. PLAN: I will leave the patient on mechanical ventilation for the time being. Wean oxygen as tolerated. I put him on pressure control ventilation as he seems to like the settings quite a bit more. We will try to minimize sedation through the night. We will frequently get doses of Lasix. In 24-48 hours, we will look to extubate him if his oxygen requirements are low enough. I certainly think his mentation will be in a place where this can be done tomorrow morning provided, he is on less O2. I will provide him with an additional dose of Lasix right now. Pulmonary Critical Care will continue to follow closely. CRITICAL CARE TIME: 30 minutes. JANINE
[2017-10-05 04:58] LABS: ALT (SGPT) 41 U/L (8-55); AST (SGOT) 38 U/L (5-34); Albumin 3.2 g/dL (3.4-4.8); Alkaline Phosphatase 144 U/L (40-150); Anion Gap 12 mmol/L (10-20); BUN (Urea Nitrogen) 24 mg/dL (8.4-25.7); Bilirubin, Total 0.2 mg/dL (0.2-1.2); Calc. Creatinine Clearance 72 mL/min (70-130); Calcium 8.4 mg/dL (7.8-10.44); Carbon Dioxide 25 mmol/L (23-31); Chloride 105 mmol/L (98-107); Estimated GFR-MDRD 72; Globulin 2.7 g/dL (2.4-3.5); Glucose 96 mg/dL (83-110); Potassium 4.4 mmol/L (3.5-5.1); Protein, Total 5.9 g/dL (5.8-8.1); Sodium 138 mmol/L (136-145)
[2017-10-05] MEDS ORDERED: Vancomycin HCl 1.25 GM in Sodium Chloride 0.9% 250 ML 250 ML IVPB SCH (05:00)
[2017-10-05] MEDS: Cefepime 2 GM, Syringe 2.5 ML in Sodium Chloride 0.9% 10 ML SLOW IVP SCH ×2 (05:27→17:32)
[2017-10-05] MEDS: Furosemide 40 MG/4 ML VIAL SLOW IVP SCH ×2 (05:27→13:31)
[2017-10-05] MEDS: Enoxaparin Sodium 40 MG/0.4 ML SYRINGE SC SCH (08:45)
[2017-10-05] MEDS ORDERED: Pantoprazole 40 MG VIAL IVP SCH (09:00)
--- NOTE | 2017-10-05 10:26 | PRG ---
DATE OF SERVICE: 10/05/2017 SERVICE: Pulmonary Medicine. INTERVAL HISTORY: The patient is doing fine from a respiratory standpoint. Oxygen requirements have dramatically improved. He denies any current chest pain, shortness of breath, nausea or vomiting. He is a little less cantankerous today. He is following commands and moving all 4 extremities. PHYSICAL EXAMINATION: VITAL SIGNS: Afebrile, pulse 75, blood pressure 136/71, respirations 10, saturation 100% on 37% FiO2 and a PEEP of 5. HEENT: Normocephalic, atraumatic. Sclerae are white, conjunctivae pink. Oral and nasal mucosa is moist without lesions. LUNGS: Decent air entry. Crackles are much improved on the right. HEART: Normal rate, regular. ABDOMEN: Soft, nontender, nondistended. Bowel sounds are positive. MUSCULOSKELETAL: No cyanosis or clubbing. There is 1+ pitting in the bilateral lower extremities. GENITOURINARY: No Jack. NEUROLOGIC: Grossly nonfocal. LABORATORY DATA: WBC 14.2, hemoglobin 11.7, platelets 296,000. INR 1.2. Creatinine 1.00. Basic metabolic profile was essentially unremarkable otherwise. AST 38 and beautifully down trending, ALT and alkaline phosphatase had fall into the normal range. Magnesium 2.4, lactate 1.2. Urinalysis is essentially unremarkable. Blood cultures x2 remain negative. ASSESSMENT: 1. Acute hypoxic respiratory failure. 2. Acute on chronic systolic and diastolic heart failure. 3. Healthcare-associated pneumonia, unlikely. 4. Elevated transaminases. 5. Prostate cancer, metastatic. PLAN: We will continue to diurese the patient until he returns to euvolemia. I will put him on a spontaneous breathing trial. If he meets criteria, extubation will be considered. We will likely need to de-escalate his Lasix either this afternoon, or tomorrow. Electrolytes and CBC will be repeated tomorrow morning. Critical care time: 30 minutes. MTDD
[2017-10-05] MEDS: Carvedilol 3.125 MG TAB PO SCH (17:21)
--- NOTE | 2017-10-05 21:40 | PDOC.PN ---
- Subjective Encounter Start Date: 10/05/17 Encounter Start Time: 18:00 Subjective: f/u for acute resp failure s/p mech vent extubated today. Remains on -: O2 via NC. Tx for CHF likely systolic given EF 30% range. Overall feeling -: better. - Objective MAR Reviewed: Yes Vital Signs & Weight: Vital Signs (12 hours) Temp Pulse Resp Pulse Ox 10/05/17 20:00 99.8 F H 76 22 H 100 10/05/17 16:05 98 10/05/17 15:00 98.1 F 10/05/17 11:55 98 10/05/17 11:00 98.6 F 10/05/17 09:55 92 L Weight Weight 184 lb 4.903 oz Most Recent Monitor Data Heart Rate from ECG 77 NIBP 119/67 NIBP BP-Mean 86 Respiration from ECG 18 SpO2 100 I&O: 10/04/17 10/05/17 10/06/17 06:59 06:59 06:59 Intake Total 70.1 1339.8 Output Total 3045 4025 Balance -2974.9 -2685.2 Result Diagrams: 10/04/17 15:05 10/05/17 03:44 Additional Labs: Accuchecks 10/04/17 22:41 POC Glucose 113 H Microbiology 10/04/17 16:48 Urine miller catheter Urine Culture - Preliminary NO GROWTH AT 24 HOURS 10/04/17 16:24 Venous blood - Right Foot Blood Culture - Preliminary Specimen has been received and culture in progress. No Growth to date. 10/04/17 16:18 Venous blood - Left Hand Blood Culture - Preliminary Specimen has been received and culture in progress. No Growth to date. Laboratory Tests 02/02/16 10/04/17 10/04/17 21:08 15:05 15:05 Lactic Acid Magnesium B-Natriuretic Peptide 539.3 H 837.2 H Troponin I TSH 3rd Generation 4.3816 10/04/17 10/04/17 10/04/17 15:05 18:26 19:29 Lactic Acid Magnesium 2.4 B-Natriuretic Peptide Troponin I 0.052 H 0.058 H TSH 3rd Generation 10/04/17 19:29 Lactic Acid 1.2 Magnesium B-Natriuretic Peptide Troponin I TSH 3rd Generation Radiology Reviewed by me: Yes (2D echo - EF 30%, mod MR) EKG Reviewed by me: Yes (Tele - Paced rhythm) Phys Exam - Physical Examination Constitutional: NAD HEENT: PERRLA, oral pharynx no lesions Neck: no JVD, supple diminished in bases Cardiovascular: RRR Gastrointestinal: soft, non-tender, no distention, positive bowel sounds Musculoskeletal: pulses present, edema present Neurological: normal sensation, moves all 4 limbs Skin: normal turgor, cap refill <2 seconds Dx/Plan (1) Acute hypercapnic respiratory failure Code(s): J96.02 - ACUTE RESPIRATORY FAILURE WITH HYPERCAPNIA Status: Acute Comment: s/p mech ventilation, likely multifactorial but primarily CHF, continue O2 supplementation and monitor resp status (2) Acute on chronic systolic (congestive) heart failure Code(s): I50.23 - ACUTE ON CHRONIC SYSTOLIC (CONGESTIVE) HEART FAILURE Status : Acute Comment: EF 30%, continue Lasix 40mg IV q12h, monitor I/O's and daily weight (3) CA (acute kidney injury) Code(s): N17.9 - ACUTE KIDNEY FAILURE, UNSPECIFIED Status: Acute Comment: Resolving, avoid nephrotoxic meds and contrast media, serial creatinine (4) Hyperkalemia Code(s): E87.5 - HYPERKALEMIA Status: Acute Comment: Resolved with CA, follow electrolytes - Plan continue antibiotics, 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
[2017-10-06 05:20] LABS: #Eosinphils 0.6 thou/uL (0.0-0.7); #Lymphocytes 1.7 thou/uL (1.20-3.40); #Monocytes 0.9 thou/uL (0.11-0.59); %Basophils 0.5 % (0.0-1.0); %Eosinophils 6.8 % (0.0-10.0); %Lymphocytes 20.9 % (21.0-51.0); %Neutrophils 60.8 % (42.0-75.0); Hemoglobin 10.2 g/dL (14.0-18.0); Mean Corpuscular HGB CONC 33.9 g/dL (32.0-36.0); Mean Corpuscular Hemoglobin 33.3 pg (27.0-31.0); Mean Corpuscular Volume 98.2 fl (80.0-94.0); Mean Platelet Volume 6.5 fL (7.4-10.4); Platelet Count 201 thou/uL (130-400); RBC Distribution Width 11.4 % (11.5-14.5); Red Blood Cell (RBC) Count 3.05 mill/uL (4.70-6.10); White Blood Cell (WBC) Count 8.2 thou/uL (4.8-10.8)
[2017-10-06 05:26] LABS: Anion Gap 11 mmol/L (10-20); BUN (Urea Nitrogen) 21 mg/dL (8.4-25.7); Calc. Creatinine Clearance 69 mL/min (70-130); Calcium 8.3 mg/dL (7.8-10.44); Carbon Dioxide 32 mmol/L (23-31); Chloride 100 mmol/L (98-107); Estimated GFR-MDRD 70; Glucose 109 mg/dL (83-110); Magnesium 1.8 mg/dL (1.6-2.6); Potassium 3.7 mmol/L (3.5-5.1); Sodium 139 mmol/L (136-145)
[2017-10-06] MEDS: Furosemide 40 MG/4 ML VIAL SLOW IVP SCH ×2 (06:13→14:39)
[2017-10-06] MEDS: Cefepime 2 GM, Syringe 2.5 ML in Sodium Chloride 0.9% 10 ML SLOW IVP SCH (06:13)
[2017-10-06] MEDS: Aspirin 325 MG TAB PO SCH (08:28)
[2017-10-06] MEDS: Carvedilol 3.125 MG TAB PO SCH ×2 (08:28→18:53)
[2017-10-06] MEDS: Enoxaparin Sodium 40 MG/0.4 ML SYRINGE SC SCH (08:28)
--- NOTE | 2017-10-06 12:39 | PRG ---
DATE OF SERVICE: 10/06/2017 SUBJECTIVE: Mr. Knowles was extubated. He is doing well. He is complaining of congestion in the chest, but no fever or chills. He is breathing somewhat better. OBJECTIVE: VITAL SIGNS: His blood pressure is 117/56, sats are 98% on room air, respiration 20, temperature 97. CHEST: Chest reveals decreased breath sounds, minimal rhonchi. CARDIAC: Normal S1, S2. No gallops. ABDOMEN: Soft, no masses. LABORATORY DATA: White count 9000, H&H is 9 and 32, platelet count normal. Electrolytes are normal. IMPRESSION: 1. Congestive heart failure. 2. Pneumonia. 3. Prostate cancer. PLAN: Continue cardiac care. If all cultures are negative, we may consider switching him over to or al antibiotics. We will follow.
--- NOTE | 2017-10-06 14:53 | PDOC.PN ---
- Subjective Encounter Start Date: 10/06/17 Encounter Start Time: 10:00 Patient is seen in ICu, alert and oriented,. On NC, he deneis any chest pain. he says he was diagnosed with Lung mass at [facility] but was not evalauted. - Objective MAR Reviewed: Yes Vital Signs & Weight: Vital Signs (12 hours) Temp Pulse Pulse Pulse Resp BP BP 10/06/17 12:56 97 71 112/56 L 133/59 L 10/06/17 12:00 97.5 F L 10/06/17 07:57 97.6 F 84 20 10/06/17 07:50 10/06/17 07:00 97.6 F 10/06/17 05:00 98.2 F Pulse Ox Pulse Ox Pulse Ox 10/06/17 12:56 97 99 10/06/17 12:00 10/06/17 07:57 93 L 10/06/17 07:50 92 L 10/06/17 07:00 10/06/17 05:00 Weight Weight 184 lb 4.903 oz Most Recent Monitor Data Heart Rate from ECG 81 NIBP 136/46 NIBP BP-Mean 78 Respiration from ECG 26 SpO2 93 I&O: 10/05/17 10/06/17 10/07/17 06:59 06:59 06:59 Intake Total 70.1 1339.8 990 Output Total 3045 5075 1850 Balance -2974.9 -3735.2 -860 Result Diagrams: 10/06/17 04:58 10/06/17 04:58 Radiology Reviewed by me: Yes Phys Exam - Physical Examination HEENT: PERRLA, moist MMs Neck: no nodes, no JVD Respiratory: no wheezing, no rales Cardiovascular: RRR, no significant murmur Gastrointestinal: soft, non-tender Musculoskeletal: no edema Neurological: non-focal, normal sensation Lymphatic: no nodes Dx/Plan (1) Acute hypercapnic respiratory failure Code(s): J96.02 - ACUTE RESPIRATORY FAILURE WITH HYPERCAPNIA Status: Acute Comment: s/p mech ventilation, likely multifactorial but primarily CHF, continue O2 supplementation and monitor resp status, can move him to medical floor. (2) Acute on chronic systolic (congestive) heart failure Code(s): I50.23 - ACUTE ON CHRONIC SYSTOLIC (CONGESTIVE) HEART FAILURE Status : Acute Comment: EF 30%, continue Lasix 40mg IV q12h, monitor I/O's and daily weight (3) b/l hydronephrosis Status: Acute Comment: s/p stent to stent to right ureter with cystoscopy 07/23 (4) CAD (coronary artery disease) Code(s): I25.10 - ATHSCL HEART DISEASE OF [place] CORONARY ARTERY W/O ANG PCTRS Status: Chronic Qualifiers: Coronary Disease-Associated Artery/Lesion type: [place] artery [place] vs. transplanted heart: [place] heart Associated angina: without angina Qualified Code(s): I25.10 - Atherosclerotic heart disease of [place] coronary artery without angina pectoris (5) HTN (hypertension) Code(s): I10 - ESSENTIAL (PRIMARY) HYPERTENSION Status: Chronic Qualifiers: Hypertension type: essential hypertension Qualified Code(s): I10 - Essential (primary) hypertension (6) Prostate cancer metastatic to intraabdominal lymph node Code(s): C61 - MALIGNANT NEOPLASM OF PROSTATE; C77.2 - SECONDARY AND UNSP MALIGNANT NEOPLASM OF INTRA-ABD NODES Status: Acute Comment: Patient had CT abd/Pelv at [facility] which showed a Retroperionel lymphnode and left pelvis Involvement which is not new according to report. 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 - Discharge Day Encounter end time: 10:35 Review of Systems - Review of Systems Constitutional: negative: fever, chills, sweats, weakness, malaise, other Eyes: negative: Pain, Vision Change, Conjunctivae Inflammation, Eyelid Inflammation, Redness, Other ENT: negative: Ear Pain, Ear Discharge, Nose Pain, Nose Discharge, Nose Congestion, Mouth Pain, Mouth Swelling, Throat Pain, Throat Swelling, Other Respiratory: Shortness of Breath Cardiovascular: negative: chest pain, palpitations, orthopnea, paroxysmal nocturnal dyspnea, edema, light headedness, other Gastrointestinal: negative: Nausea, Vomiting, Abdominal Pain, Diarrhea, Constipation, Melena, Hematochezia, Other Musculoskeletal: negative: Neck Pain, Shoulder Pain, Arm Pain, Back Pain, Hand Pain, Leg Pain, Foot Pain, Other Skin: negative: Rash, Lesions, Max, Bruising, Other - Medications/Allergies Allergies/Adverse Reactions: Allergies Allergy/AdvReac Type Severity Reaction Status Date / Time acetaminophen [From Tylenol] Allergy Unknown Verified 10/04/17 16:30 amiodarone Allergy Verified 10/04/17 16:30 amlodipine Allergy Verified 10/04/17 16:30 ARB-Angiotensin Receptor Allergy Verified 10/04/17 16:30 Antagonist Calcium Channel Blocking Allergy Verified 10/04/17 16:30 Agent Dilt levofloxacin [From Levaquin] Allergy Verified 10/04/17 16:30 meperidine HCl [From Demerol] Allergy N/V Verified 10/04/17 16:30 valsartan [From Diovan] Allergy Verified 10/04/17 16:30 BETA BLOCKERS Allergy Uncoded 10/04/17 16:30 Medications: Current Medications Aspirin (Aspirin) 325 mg PO DAILY [facility] Last Admin: 10/06/17 08:28 Dose: 325 mg Bisacodyl (Dulcolax) 10 mg SD Q24H PRN PRN Reason: Constipation Bisacodyl (Dulcolax) 10 mg PO DAILYPRN PRN PRN Reason: Constipation Carvedilol (Coreg) 3.125 mg PO BID-[facility] Last Admin: 10/06/17 08:28 Dose: 3.125 mg Cefdinir (Omnicef) 300 mg PO BID [facility] Enoxaparin Sodium (Lovenox) 40 mg SC 0900 [facility] Last Admin: 10/06/17 08:28 Dose: 40 mg Furosemide (Lasix) 40 mg SLOW IVP 0600,1400 [facility] Last Admin: 10/06/17 14:39 Dose: 40 mg Ondansetron HCl (Zofran) 4 mg IVP Q6H PRN PRN Reason: Nausea/Vomiting Phenytoin Sodium (Dilantin Er) 300 mg PO HS [facility] Last Admin: 10/05/17 20:18 Dose: 300 mg Sodium Chloride (Flush - Normal Saline) 10 ml IVF PRN PRN PRN Reason: Saline Flush Last Admin: 10/06/17 14:39 Dose: 10 ml
[2017-10-06] MEDS: Cefdinir 300 MG CAP PO SCH (21:44)
[2017-10-07 04:21] LABS: #Basophils 0.1 thou/uL (0.0-0.2); #Eosinphils 0.6 thou/uL (0.0-0.7); #Monocytes 0.9 thou/uL (0.11-0.59); #Neutrophils 4.6 thou/uL (1.40-6.50); %Eosinophils 7.4 % (0.0-10.0); %Lymphocytes 24.4 % (21.0-51.0); %Monocytes 10.5 % (0.0-10.0); %Neutrophils 56.7 % (42.0-75.0); Hemoglobin 10.8 g/dL (14.0-18.0); Mean Corpuscular HGB CONC 35.2 g/dL (32.0-36.0); Mean Corpuscular Hemoglobin 34.4 pg (27.0-31.0); Mean Corpuscular Volume 97.6 fl (80.0-94.0); Mean Platelet Volume 6.5 fL (7.4-10.4); Platelet Count 232 thou/uL (130-400); RBC Distribution Width 11.5 % (11.5-14.5); Red Blood Cell (RBC) Count 3.14 mill/uL (4.70-6.10); White Blood Cell (WBC) Count 8.1 thou/uL (4.8-10.8)
[2017-10-07 04:29] LABS: Anion Gap 14 mmol/L (10-20); BUN (Urea Nitrogen) 25 mg/dL (8.4-25.7); Calc. Creatinine Clearance 64 mL/min (70-130); Calcium 8.6 mg/dL (7.8-10.44); Carbon Dioxide 34 mmol/L (23-31); Chloride 96 mmol/L (98-107); Estimated GFR-MDRD 65; Glucose 116 mg/dL (83-110); Potassium 3.5 mmol/L (3.5-5.1); Sodium 140 mmol/L (136-145)
[2017-10-07] MEDS: Furosemide 40 MG/4 ML VIAL SLOW IVP SCH ×2 (06:39→14:14)
[2017-10-07] MEDS: Carvedilol 3.125 MG TAB PO SCH ×2 (08:25→17:21)
[2017-10-07] MEDS: Aspirin 325 MG TAB PO SCH (08:25)
[2017-10-07] MEDS: Cefdinir 300 MG CAP PO SCH ×2 (08:25→20:57)
[2017-10-07] MEDS: Enoxaparin Sodium 40 MG/0.4 ML SYRINGE SC SCH (08:25)
[2017-10-07] MEDS ORDERED: Melatonin 3 MG TAB PO PRN (11:50)
--- NOTE | 2017-10-07 18:57 | PDOC.PN ---
- Subjective Encounter Start Date: 10/07/17 Encounter Start Time: 16:00 Oscar is seen today, alert and oriented. No other Concerns noted, he wants to call Dr. Dunn for interrogation of his AICD. - Objective MAR Reviewed: Yes Vital Signs & Weight: Vital Signs (12 hours) Temp Pulse Pulse Pulse Resp BP BP 10/07/17 16:00 98.4 F 10/07/17 13:04 72 80 115/69 106/53 L 10/07/17 12:00 98.8 F 10/07/17 08:00 97.8 F 80 18 10/07/17 07:00 97.8 F Pulse Ox Pulse Ox Pulse Ox 10/07/17 16:00 10/07/17 13:04 100 100 10/07/17 12:00 10/07/17 08:00 100 10/07/17 07:00 Weight Weight 167 lb 1.766 oz Most Recent Monitor Data Heart Rate from ECG 75 NIBP 119/69 NIBP BP-Mean 84 Respiration from ECG 18 SpO2 100 I&O: 10/06/17 10/07/17 10/08/17 06:59 06:59 06:59 Intake Total 1339.8 1550 850 Output Total 5075 2900 1600 Balance -3735.2 -1350 -750 Result Diagrams: 10/07/17 03:46 10/07/17 03:46 Radiology Reviewed by me: Yes Phys Exam - Physical Examination HEENT: PERRLA, moist MMs Neck: no nodes, no JVD Respiratory: no wheezing, no rales Cardiovascular: RRR, no significant murmur Gastrointestinal: soft, non-tender Musculoskeletal: no edema, pulses present Lymphatic: no nodes Psychiatric: normal affect, A&O x 3 Dx/Plan (1) Acute hypercapnic respiratory failure Code(s): J96.02 - ACUTE RESPIRATORY FAILURE WITH HYPERCAPNIA Status: Acute Comment[facility] likely multifactorial but primarily CHF, continue O2 supplementation and monitor resp status, can move him to medical floor. Will need home oxygen. (2) Acute on chronic systolic (congestive) heart failure Code(s): I50.23 - ACUTE ON CHRONIC SYSTOLIC (CONGESTIVE) HEART FAILURE Status : Acute Comment: EF 30%, continue Lasix 40mg IV q12h, monitor I/O's and daily weight (3) b/l hydronephrosis Status: Acute Comment: s/p stent to stent to right ureter with cystoscopy 07/23 (4) CAD (coronary artery disease) Code(s): I25.10 - ATHSCL HEART DISEASE OF [place] CORONARY ARTERY W/O ANG PCTRS Status: Chronic Qualifiers: Coronary Disease-Associated Artery/Lesion type: [place] artery [place] vs. transplanted heart: [place] heart Associated angina: without angina Qualified Code(s): I25.10 - Atherosclerotic heart disease of [place] coronary artery without angina pectoris (5) HTN (hypertension) Code(s): I10 - ESSENTIAL (PRIMARY) HYPERTENSION Status: Chronic Qualifiers: Hypertension type: essential hypertension Qualified Code(s): I10 - Essential (primary) hypertension (6) Prostate cancer metastatic to intraabdominal lymph node Code(s): C61 - MALIGNANT NEOPLASM OF PROSTATE; C77.2 - SECONDARY AND UNSP MALIGNANT NEOPLASM OF INTRA-ABD NODES Status: Acute Comment: Patient had CT abd/Pelv at [facility] which showed a Retroperionel lymphnode and left pelvis Involvement which is not new according to report. 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 - Discharge Day Encounter end time: 16:35 Review of Systems - Review of Systems Eyes: negative: Pain, Vision Change, Conjunctivae Inflammation, Eyelid Inflammation, Redness, Other ENT: negative: Ear Pain, Ear Discharge, Nose Pain, Nose Discharge, Nose Congestion, Mouth Pain, Mouth Swelling, Throat Pain, Throat Swelling, Other Respiratory: Cough, Shortness of Breath, SOB with Excertion, Wheezing Cardiovascular: negative: chest pain, palpitations, orthopnea, paroxysmal nocturnal dyspnea, edema, light headedness, other Gastrointestinal: negative: Nausea, Vomiting, Abdominal Pain, Diarrhea, Constipation, Melena, Hematochezia, Other Genitourinary: negative: Dysuria, Frequency, Incontinence, Hematuria, Retention , Other Musculoskeletal: negative: Neck Pain, Shoulder Pain, Arm Pain, Back Pain, Hand Pain, Leg Pain, Foot Pain, Other Skin: negative: Rash, Lesions, Max, Bruising, Other - Medications/Allergies Allergies/Adverse Reactions: Allergies Allergy/AdvReac Type Severity Reaction Status Date / Time acetaminophen [From Tylenol] Allergy Unknown Verified 10/04/17 16:30 amiodarone Allergy Verified 10/04/17 16:30 amlodipine Allergy Verified 10/04/17 16:30 ARB-Angiotensin Receptor Allergy Verified 10/04/17 16:30 Antagonist Calcium Channel Blocking Allergy Verified 10/04/17 16:30 Agent Dilt levofloxacin [From Levaquin] Allergy Verified 10/04/17 16:30 meperidine HCl [From Demerol] Allergy N/V Verified 10/04/17 16:30 valsartan [From Diovan] Allergy Verified 10/04/17 16:30 BETA BLOCKERS Allergy Uncoded 10/04/17 16:30 Medications: Current Medications Aspirin (Aspirin) 325 mg PO DAILY [facility] Last Admin: 10/07/17 08:25 Dose: 325 mg Bisacodyl (Dulcolax) 10 mg [place] Q24H PRN PRN Reason: Constipation Bisacodyl (Dulcolax) 10 mg PO DAILYPRN PRN PRN Reason: Constipation Carvedilol (Coreg) 3.125 mg PO BID-[facility] Last Admin: 10/07/17 17:21 Dose: 3.125 mg Cefdinir (Omnicef) 300 mg PO BID [facility] Last Admin: 10/07/17 08:25 Dose: 300 mg Enoxaparin Sodium (Lovenox) 40 mg SC 0900 [facility] Last Admin: 10/07/17 08:25 Dose: 40 mg Furosemide (Lasix) 40 mg SLOW IVP 0600,1400 [facility] Last Admin: 10/07/17 14:14 Dose: 40 mg Isosorbide Mononitrate (Imdur Er) 30 mg PO BID [facility] Lisinopril (Zestril) 2.5 mg PO DAILY [facility] Melatonin (Melatonin) 6 mg PO HS PRN PRN Reason: Insomnia Ondansetron HCl (Zofran) 4 mg IVP Q6H PRN PRN Reason: Nausea/Vomiting Phenytoin Sodium (Dilantin Er) 300 mg PO HS [facility] Last Admin: 10/06/17 21:44 Dose: 300 mg Sodium Chloride (Flush - Normal Saline) 10 ml IVF PRN PRN PRN Reason: Saline Flush Last Admin: 10/07/17 14:14 Dose: 10 ml Spironolactone (Aldactone) 12.5 mg PO QAM-[facility]
[2017-10-08 05:00] LABS: #Basophils 0.1 thou/uL (0.0-0.2); #Eosinphils 0.7 thou/uL (0.0-0.7); #Lymphocytes 1.9 thou/uL (1.20-3.40); #Monocytes 0.9 thou/uL (0.11-0.59); #Neutrophils 5.2 thou/uL (1.40-6.50); %Basophils 0.6 % (0.0-1.0); %Eosinophils 7.7 % (0.0-10.0); %Lymphocytes 22.1 % (21.0-51.0); %Monocytes 10.6 % (0.0-10.0); Hemoglobin 10.5 g/dL (14.0-18.0); Mean Corpuscular Hemoglobin 33.3 pg (27.0-31.0); Mean Corpuscular Volume 98.1 fl (80.0-94.0); Mean Platelet Volume 6.6 fL (7.4-10.4); Platelet Count 259 thou/uL (130-400); RBC Distribution Width 11.4 % (11.5-14.5); Red Blood Cell (RBC) Count 3.14 mill/uL (4.70-6.10); White Blood Cell (WBC) Count 8.7 thou/uL (4.8-10.8)
[2017-10-08] MEDS: Furosemide 40 MG/4 ML VIAL SLOW IVP SCH (05:43)
[2017-10-08] MEDS: Lisinopril 2.5 MG TAB PO SCH (08:32)
[2017-10-08] MEDS: Enoxaparin Sodium 40 MG/0.4 ML SYRINGE SC SCH (08:32)
[2017-10-08] MEDS: Aspirin 325 MG TAB PO SCH (08:33)
[2017-10-08] MEDS: Cefdinir 300 MG CAP PO SCH ×2 (08:33→21:32)
[2017-10-08] MEDS: Spironolactone 25 MG TAB PO SCH (08:33)
[2017-10-08] MEDS: Carvedilol 3.125 MG TAB PO SCH ×2 (08:33→17:09)
--- NOTE | 2017-10-08 12:03 | PRG ---
DATE OF SERVICE: 10/08/2017 SERVICE: Pulmonary Medicine. INTERVAL HISTORY: The patient remains cantankerous. He does not look to be in any distress. He gudino s not have any shortness of breath or chest discomfort. PHYSICAL EXAMINATION: VITAL SIGNS: Afebrile, pulse 81, blood pressure 137/71, respirations 21, saturation 95% on room air. GENERAL: The patient is awake, alert, in no apparent distress. LUNGS: Decent air entry. There are no crackles present today. No prolonged expiratory phase, wheez ing or rhonchi are present. HEART: Normal rate, regular. ABDOMEN: Soft, nontender, and nondistended. Bowel sounds are positive. MUSCULOSKELETAL: No cyanosis or clubbing. Trace pitting in the bilateral lower extremities is prese nt, but drastically improved compared to prior. GENITOURINARY: No Jack. NEUROLOGIC: Grossly nonfocal. LABORATORY DATA: WBC 8.7, hemoglobin 10.5, platelets 259,000. INR 1.2. Creatinine 1.1. Basic meta bolic profile is otherwise unremarkable. Calcium is 8.6. Blood cultures x2 and urine culture remain s negative. IMAGING: Echocardiogram demonstrates 30%-35% ejection fraction. Pacemaker is in place. ASSESSMENT: 1. Acute hypoxic respiratory failure, resolved. 2. Acute on chronic systolic and diastolic heart failure. 3. Healthcare-associated pneumonia, unlikely. 4. Elevated transaminases, resolved. 5. Prostate cancer, metastatic. PLAN: From my perspective, the patient can be transitioned out of the hospital. I will discontinue his antibiotics. If he remains in this location, we can send him to the telemetry unit. He has no f urther requirements for pulmonary opinion and so when he lands on the floor, I will sign off. Please call with additional questions or concerns moving forward.
--- NOTE | 2017-10-08 15:47 | EKG ---
Test Reason : Blood Pressure : / mmHG Vent. Rate : 089 BPM Atrial Rate : 089 BPM P-R Int : 144 ms QRS Dur : 156 ms QT Int : 424 ms P-R-T Axes : 079 -38 083 degrees QTc Int : 515 ms Atrial-sensed ventricular-paced rhythm Abnormal ECG Confirmed by KATERINE ALEXANDER M.D. ([id number]), editorial director LORETO LOMBARDO ([id number]) on 10/08/2017 3:46:31 PM Referred By: Confirmed By:KATERINE ALEXANDER M.D.
--- NOTE | 2017-10-08 16:19 | EKG ---
Test Reason : POSS STEMI Blood Pressure : / mmHG Vent. Rate : 098 BPM Atrial Rate : 098 BPM P-R Int : 148 ms QRS Dur : 142 ms QT Int : 382 ms P-R-T Axes : 008 -82 086 degrees QTc Int : 487 ms Atrial-sensed ventricular-paced rhythm No STEMI Abnormal ECG Confirmed by BENJAMIN Valverde, KATERINE ([id number]), publishing editor LORETO LOMBARDO ([id number]) on 10/08/2017 4:19:15 PM Referred By: MD ALEXANDER Confirmed By:KATERINE ALEXANDER M.D.
--- NOTE | 2017-10-08 19:49 | PDOC.PN ---
- Subjective Encounter Start Date: 10/08/17 Encounter Start Time: 11:00 Evette is seen today, alert and oriented. Pt wants his pacemaker to be interrogated and requesting cardiology to see him. Pulmonary cleared him to go home. - Objective MAR Reviewed: Yes Vital Signs & Weight: Vital Signs (12 hours) Temp Pulse Resp BP BP Pulse Ox 10/08/17 16:00 98 F 81 17 128/61 94 L 10/08/17 12:00 97.6 F 78 15 128/61 96 10/08/17 08:32 81 137/71 10/08/17 08:00 97.5 F L 81 16 137/61 96 10/08/17 07:55 98.2 F 81 18 Weight Weight 168 lb 6.931 oz Most Recent Monitor Data Heart Rate from ECG 73 NIBP 89/50 NIBP BP-Mean 53 Respiration from ECG 15 SpO2 93 I&O: 10/07/17 10/08/17 10/09/17 06:59 06:59 06:59 Intake Total 1550 1630 540 Output Total 2900 2400 2024 Balance -3689 -120 -3951 Result Diagrams: 10/08/17 03:50 10/07/17 03:46 Radiology Reviewed by me: Yes Phys Exam - Physical Examination HEENT: PERRLA, moist MMs Neck: no nodes, no JVD Respiratory: no wheezing, no rales Cardiovascular: RRR, no significant murmur Gastrointestinal: soft, non-tender Musculoskeletal: no edema, pulses present Dx/Plan (1) Acute hypercapnic respiratory failure Code(s): J96.02 - ACUTE RESPIRATORY FAILURE WITH HYPERCAPNIA Status: Resolved Comment: s/p mech ventilation, likely multifactorial but primarily CHF, continue O2 supplementation and monitor resp status, can move him to medical floor. Will need home oxygen. (2) Acute on chronic systolic (congestive) heart failure Code(s): I50.23 - ACUTE ON CHRONIC SYSTOLIC (CONGESTIVE) HEART FAILURE Status : Resolved Comment: EF 30%, continue po lasix monitor I/O's and daily weight (3) b/l hydronephrosis Status: Acute Comment: s/p stent to stent to right ureter with cystoscopy 07/23 (4) CAD (coronary artery disease) Code(s): I25.10 - ATHSCL HEART DISEASE OF [place] CORONARY ARTERY W/O ANG PCTRS Status: Chronic Qualifiers: Coronary Disease-Associated Artery/Lesion type: [place] artery [place] vs. transplanted heart: [place] heart Associated angina: without angina Qualified Code(s): I25.10 - Atherosclerotic heart disease of [place] coronary artery without angina pectoris (5) HTN (hypertension) Code(s): I10 - ESSENTIAL (PRIMARY) HYPERTENSION Status: Chronic Qualifiers: Hypertension type: essential hypertension Qualified Code(s): I10 - Essential (primary) hypertension (6) Prostate cancer metastatic to intraabdominal lymph node Code(s): C61 - MALIGNANT NEOPLASM OF PROSTATE; C77.2 - SECONDARY AND UNSP MALIGNANT NEOPLASM OF INTRA-ABD NODES Status: Acute Comment: Patient had CT abd/Pelv at [facility] which showed a Retroperionel lymphnode and left pelvis Involvement which is not new according to report. (7) Pacemaker complications Code(s): T82.9XXA - UNSP COMP OF CARDIAC AND VASCULAR PROSTH DEV/GRFT, INIT Status: Acute Comment: Patient wants His pacemaker to be interrogated, can be dischagrd home after that. - Plan cont current plan of care, PT/OT, group social worker, respiratory therapy, incentive spirometry, out of bed/ambulate, DVT proph w/SCDs * . - Discharge Day Encounter end time: 11:35 Review of Systems - Review of Systems Eyes: negative: Pain, Vision Change, Conjunctivae Inflammation, Eyelid Inflammation, Redness, Other ENT: negative: Ear Pain, Ear Discharge, Nose Pain, Nose Discharge, Nose Congestion, Mouth Pain, Mouth Swelling, Throat Pain, Throat Swelling, Other Respiratory: negative: Cough, Dry, Shortness of Breath, Hemoptysis, SOB with Excertion, Pleuritic Pain, Sputum, Wheezing Cardiovascular: negative: chest pain, palpitations, orthopnea, paroxysmal nocturnal dyspnea, edema, light headedness, other Gastrointestinal: negative: Nausea, Vomiting, Abdominal Pain, Diarrhea, Constipation, Melena, Hematochezia, Other Musculoskeletal: negative: Neck Pain, Shoulder Pain, Arm Pain, Back Pain, Hand Pain, Leg Pain, Foot Pain, Other - Medications/Allergies Allergies/Adverse Reactions: Allergies Allergy/AdvReac Type Severity Reaction Status Date / Time acetaminophen [From Tylenol] Allergy Unknown Verified 10/04/17 16:30 amiodarone Allergy Verified 10/04/17 16:30 amlodipine Allergy Verified 10/04/17 16:30 ARB-Angiotensin Receptor Allergy Verified 10/04/17 16:30 Antagonist Calcium Channel Blocking Allergy Verified 10/04/17 16:30 Agent Dilt levofloxacin [From Levaquin] Allergy Verified 10/04/17 16:30 meperidine HCl [From Demerol] Allergy N/V Verified 10/04/17 16:30 valsartan [From Diovan] Allergy Verified 10/04/17 16:30 BETA BLOCKERS Allergy Uncoded 10/04/17 16:30 Medications: Current Medications Aspirin (Aspirin) 325 mg PO DAILY [facility] Last Admin: 10/08/17 08:33 Dose: 325 mg Bisacodyl (Dulcolax) 10 mg NV Q24H PRN PRN Reason: Constipation Bisacodyl (Dulcolax) 10 mg PO DAILYPRN PRN PRN Reason: Constipation [facility] Admin: 10/08/17 17:09 Dose: 3.125 mg Cefdinir (Omnicef) 300 mg PO BID [facility] Last Admin: 10/08/17 08:33 Dose: 300 mg Enoxaparin Sodium (Lovenox) 40 mg SC 0900 [facility] Last Admin: 10/08/17 08:32 Dose: 40 mg Furosemide (Lasix) 40 mg SLOW IVP 0600 [facility] Isosorbide Mononitrate (Imdur Er) 30 mg PO BID [facility] Last Admin: 10/08/17 08:33 Dose: 30 mg Lisinopril (Zestril) 2.5 mg PO DAILY [facility] Last Admin: 10/08/17 08:32 Dose: 2.5 mg Melatonin (Melatonin) 6 mg PO HS PRN PRN Reason: Insomnia Last Admin: 10/07/17 20:56 Dose: 6 mg Ondansetron HCl (Zofran) 4 mg IVP Q6H PRN PRN Reason: Nausea/Vomiting Phenytoin Sodium (Dilantin Er) 300 mg PO HS [facility] Last Admin: 10/07/17 20:56 Dose: 300 mg Sodium Chloride (Flush - Normal Saline) 10 ml IVF PRN PRN PRN Reason: Saline Flush Last Admin: 10/07/17 14:14 Dose: 10 ml Spironolactone (Aldactone) 12.5 mg PO QAM[facility] Last Admin: 10/08/17 08:33 Dose: 12.5 mg
[2017-10-09] MEDS ORDERED: Ibuprofen 600 MG TAB PO SCH (04:00)
[2017-10-09 04:34] LABS: Anion Gap 11 mmol/L (10-20); BUN (Urea Nitrogen) 36 mg/dL (8.4-25.7); Calc. Creatinine Clearance 55 mL/min (70-130); Carbon Dioxide 37 mmol/L (23-31); Chloride 92 mmol/L (98-107); Estimated GFR-MDRD 60; Glucose 131 mg/dL (83-110); Magnesium 2.2 mg/dL (1.6-2.6); Potassium 3.8 mmol/L (3.5-5.1); Sodium 136 mmol/L (136-145)
[2017-10-09] MEDS ORDERED: Furosemide 40 MG/4 ML VIAL SLOW IVP SCH (06:00)
[2017-10-09] MEDS: Spironolactone 25 MG TAB PO SCH (08:44)
[2017-10-09] MEDS: Aspirin 325 MG TAB PO SCH (08:45)
[2017-10-09] MEDS: Cefdinir 300 MG CAP PO SCH (08:45)
[2017-10-09] MEDS: Carvedilol 3.125 MG TAB PO SCH (08:45)
[2017-10-09] MEDS: Enoxaparin Sodium 40 MG/0.4 ML SYRINGE SC SCH (08:45)
[2017-10-09] MEDS: Lisinopril 2.5 MG TAB PO SCH (08:45)
--- NOTE | 2017-10-09 08:51 | CON ---
DATE OF CONSULTATION: 10/08/2017 REASON FOR CONSULTATION: Heart failure and tachycardia. HISTORY OF PRESENT ILLNESS: Mr. Knowles is a very pleasant 77-year-old white gentleman, who comes to the hospital for shortness of breath. He was emergently intubated in the ER as he was in respira tory distress and was admitted for diuresis. Originally, a STEMI pager was activated; however, when I presented he had a paced rhythm and he was not complaining of any pain and was just his shortness o f breath. So, the STEMI activation was canceled and then he was admitted for further care. He has b een diuresed and extubated since he is doing much better. He looks back to baseline. Cardiology is being consulted now because he had a small run of wide complex rhythm that was thought to be nonsusta ined [place]. Cardiology is being consulted for evaluation of this. He has a history of ischemic cardiom yopathy. He has an EF of about 30% to 35% on echo recently, 20% before. He has a complete resynchro nization therapy and defibrillator in [facility] device. He has been followed by [facility] for this. He see s a paste maker out of [place], close to [place]. He used to see Dr. Rodriguez in the past. Currently, his breathing is back to baseline. Interrogation of the device shows several episodes of paroxysmal atrial fibrillation, the longest one was lasted about 2-1/2 days just prior to his admission and most likely the cause is decompensated h eart failure. He otherwise has not had any VT, any VF. No therapies delivered. He does have a rapi d AFib that his pacer attempts to pace him out of and he did so several times. He may have had a [facility] episode defibrillator trying to pace him out of rapid atrial fibrillation and might have been what we saw on telemetry. PAST MEDICAL HISTORY: 1. Coronary artery disease with stent placement in the past. 2. Seizure disorder. 3. CVAs in the past. 4. Chronic sinusitis. 5. Previous mastoid surgery. 6. Peptic ulcer disease. 7. Chronic obstructive pulmonary disease. 8. Glaucoma. 9. Bilateral carotid stenosis with endarterectomies in the right by Dr. Salmon. 10. Hypertension. 11. Bipolar disorder. 12. Paroxysmal atrial fibrillation. 13. Benign prostatic hypertrophy. 14. Percutaneous closure of PFO. 15. Biventricular AICD placement. 16. Inguinal hernia repair. 17. Several SVT and atrial fibrillation ablations. 18. History of GI bleeding while on anticoagulation. OUTPATIENT MEDICATIONS: Include: 1. Imdur 30 mg b.i.d. 2. Lasix b.i.d. 3. Chromium picolinate. 4. Carvedilol 3.125 mg p.o. b.i.d. 5. Aspirin 325 a day. 6. Clonidine. 7. Dilantin 300 mg at bedtime. 8. Multivitamin daily. 9. Melatonin. 10. [place] Elias. 11. Flonase. 12. Aldactone 12.5 mg q.a.m. 13. Lisinopril 2.5 mg a day. 14. Omnicef 300 mg p.o. b.i.d. ALLERGIES: 1. TYLENOL. 2. AMIODARONE. 3. AMLODIPINE. 4. ARBS. 5. CALCIUM CHANNEL BLOCKERS. 6. LEVOFLOXACIN. 7. MEPERIDINE. 8. VALSARTAN. 9. BETA BLOCKERS. SOCIAL HISTORY: No alcohol, tobacco or drugs. FAMILY HISTORY: Father at 59 of heart disease. Mother at age 73 of dementia. REVIEW OF SYSTEMS: A 12 point review of systems was done and is all negative unless stated in the hi story of present illness. PHYSICAL EXAMINATION: VITAL SIGNS: Currently, temperature 98.0, pulse 72, respiratory rate 20, satting 98% on room air, bl ood pressure 90/50. GENERAL: Awake, alert, oriented x3, in no distress. HEENT: Normocephalic, atraumatic. NECK: Supple. LUNGS: Clear. CARDIOVASCULAR: S1, S2, no S3, S4, no murmurs. ABDOMEN: Soft, positive bowel sounds. EXTREMITIES: No edema. SKIN: Warm and dry. LABORATORY WORK: Reviewed. CBC was reviewed. Coags were reviewed. INR is 1.2. Chemistries were r eviewed. Normal BUN and creatinine, GFR of 65. Troponin is undetermined on admission. UA, small am ount of blood, 11-20 red cells, 4-6 squamous epithelial cells. Echocardiogram done on this admission showed an EF of 30% to 35%, mild AI and mild TR. EKG was reviewed. ASSESSMENT AND PLAN: 1. Acute on chronic systolic heart failure, significantly improved. 2. Presence of biventricular automatic implantable cardioverter defibrillator. 3. Paroxysmal atrial fibrillation, likely cause of his decompensated state. 4. Ischemic cardiomyopathy, ejection fraction at 30% to 35%. 5. Relative hypotension: Unable to up titrate any of his heart medications. PLAN: His AICD is working just fine without any issues. No evidence of VT or VF, just paroxysmal at rial fibrillation that continuous to try to be treated with antitachycardia pacing. This may be what we saw on telemetry. Currently, no major arrhythmias of concern. He is back to euvolemia and he sh ould be able to be discharged back to the [facility] facility he came [facility]. Thank you for letting us to participate in the care of your patient. We will follow, disposition in place. Otherwise, he will follow up with his primary paste maker in [place].
--- NOTE | 2017-10-09 09:22 | PRG ---
DATE OF SERVICE: 10/09/2018 SERVICE: Pulmonary Medicine INTERVAL HISTORY: The patient is doing fine from a respiratory standpoint. He is breathing comforta juan. He denies any chest discomfort. Apparently, he is too healthy go back to his nursing facility and they refuse to take him. As such, we are working on appropriate disposition for Mr. Knowles. Either way, he is stable for transition home today, so he will be moved to the medical unit. PHYSICAL EXAMINATION: VITAL SIGNS: Afebrile currently with a T-max of 99.8, pulse 71, blood pressure 121/69, respirations 16, saturation 93% on room air. GENERAL: The patient is awake, alert, in no apparent distress. LUNGS: Decent air entry. Dependent crackles are minimal. HEART: Normal rate, regular. ABDOMEN: Soft, nontender, nondistended. Bowel sounds are positive. MUSCULOSKELETAL: No cyanosis or clubbing. There is trace pitting in the bilateral lower extremities . NEUROLOGIC: Grossly nonfocal. LABORATORY DATA: BUN 36, bicarbonate has jumped to 37. Basic metabolic profile is otherwise unremar kable. Magnesium is normal at 2.2. Blood cultures x2 and urine culture unremarkable. ASSESSMENT: 1. Acute hypoxic respiratory failure, resolved. 2. Acute on chronic systolic and diastolic heart failure. 3. Healthcare-associated pneumonia, unlikely. 4. Prostate cancer, metastatic, DISCUSSION AND PLAN: The patient will be transitioned to the medical unit. [facility] will sign off. Please call with additional questions or concerns moving forward.
[2017-10-09 15:46] VITALS: BP 142/80; TEMP 98.2
[2017-10-09] MEDS ORDERED: Prevnar 13-Val Conj/PF 0.5 ML SYRINGE IM ONE (16:15)
--- NOTE | 2017-10-09 17:26 | PDOC.CTH ---
Cardiology Progress Note - Subjective He is doing well. No chest pain, tightness ,pressure, SOB. - Objective Vital Signs Temp Pulse Resp BP Pulse Ox 10/09/17 15:45 98.2 F 76 18 142/80 H 97 10/09/17 12:00 98.3 F 80 18 140/81 100 10/09/17 08:45 71 10/09/17 08:00 97.9 F 71 16 Weight 165 lb 14.542 oz 10/08/17 10/09/17 10/10/17 06:59 06:59 06:59 Intake Total 1630 1500 240 Output Total 2400 2975 600 Balance -463 -8473 -360 - Physical Examination General/Neuro: alert & oriented x3, NAD Neck: no JVD present Lungs: CTA, unlabored respirations Heart: RRR Abdomen: NT/ND Extremities: + edema B (trace) - Labs Result Diagrams: 10/08/17 03:50 10/09/17 03:47 Troponin/CKMB CK-MB (CK-2) 2.2 ng/mL (0-6.6) 10/04/17 15:05 Troponin I 0.058 ng/mL (< 0.028) H 10/04/17 19:29 - Assessment/Plan 1. Acute on chronic systolic heart failure, improved. 2. Presence of a BiV AICD. 3. Paroxysmal afib 4. Ischemic CM EF at 30-35% PLAN: - Continue current regimen for now. - Will sign off. Please call with any questions.
--- NOTE | 2017-10-10 03:01 | DIS ---
DATE OF ADMISSION: 10/04/2017 DATE OF DISCHARGE: 10/09/2017 DISCHARGE DIAGNOSES: 1. Acute hypercapnic respiratory failure, status post mechanical ventilation, resolved. 2. Acute on chronic systolic congestive heart failure with ejection fraction of 30%. 3. Ischemic cardiomyopathy with ejection fraction of 30%-35%. 4. Coronary artery disease, chronic and stable. 5. Paroxysmal atrial fibrillation with current pacemaker, rate controlled. CONSULTATIONS: Dr. Smith with Pulmonology Service. Dr. Patino with Cardiology Service. PERTINENT LABORATORY AND X-RAY FINDINGS: Carbon dioxide level ranged between 20-37. Lactic acid lev el ranged between 1.2-2.1, AST is 82, ALT 61, alkaline phosphatase 200. BNP 837. TSH 4.38. CBC april wed a white blood cell count ranged between 8.1-14.2, hemoglobin ranged between 10.5-11.7, MCV ranged between 98-101. Blood cultures x2 from 10/04/2017 showed no growth at 48 hours. Urine culture date d 10/04/2017 showed no growth at 48 hours. Portable chest x-ray dated 10/04/2017 showed bilateral pu lmonary edema. A 2D transthoracic echocardiogram dated 10/05/2017 showed ejection fraction of 30%-35 %. Pacemaker AICD leads visualized in the right atrium. HOSPITAL COURSE: The patient was initially admitted after presenting with increased shortness of shanice ath, presenting from [facility] requiring mechanical ventilation due to severe hypoxemia and hypercapnia with O2 saturations in the 50% range. The patient was initially ma naged for potential ST elevation myocardial infarction; however, Cardiology evaluation ruled out this diagnosis. The patient was managed in the critical care unit and treated for congestive heart failu re exacerbation with volume overload, receiving IV Lasix with excellent diuresis and overall improvem ent in oxygenation. The patient did receive empiric IV antibiotic therapy after leukocytosis was not ed at the time of presentation; however, this was likely a demargination effect as no specific eviden ce to suggest infectious process was identified. The patient was followed by the Critical Care Servi ce throughout his hospital course, transitioning off mechanical ventilation on to nasal cannula oxyge n supplementation, maintaining O2 saturations in the mid 90% range. The patient was evaluated by the Cardiology Service as stated previously undergoing pacemaker interrogation showing paroxysmal atrial fibrillation as potential component of presentation for respiratory failure. No specific adjustment s were made to his chronic medication regimen and overall heart rate remained controlled. The patikati t continued to clinically stabilize and was transferred out of the critical care unit to the medical floor. The patient responded appropriately to diuretic therapy, transitioning to all oral medication s. Due to patient's overall deconditioned status, the patient was deemed an appropriate candidate to return to [facility] to resume a supervised medical care. I have exam ined the patient, reviewed the discharge instructions with the patient who agrees with discharge plan and follow up. The patient ready for discharge on 10/09/2017. DISCHARGE MEDICATIONS: 1. Aspirin 81 mg 1 tab p.o. daily. 2. Coreg 3.125 mg p.o. b.i.d. 3. Omnicef 300 mg p.o. b.i.d. x3 days. 4. Chromium picolinate 200 mcg p.o. b.i.d. 5. Catapres 0.1 mg p.o. at bedtime. 6. Flonase 1 spray in each naris daily p.r.n. 7. Lasix 40 mg p.o. b.i.d. 8. [place] Elias 500 mg 1 tab p.o. daily. 9. Isosorbide dinitrate 30 mg p.o. b.i.d. 10. Zestril 2.5 mg p.o. daily. 11. Melatonin 5 mg p.o. at bedtime p.r.n. 12. Multivitamin 1 tab p.o. daily. 13. Dilantin 300 mg p.o. at bedtime. 14. Aldactone 12.5 mg p.o. q.a.m. FOLLOWUP: The patient may follow up with his primary care provider, Dr. Bethany You. The patien t will follow up with Aram Lynne. CONDITION ON DISCHARGE: Stable. ACTIVITY: Ad pam. DIET: Heart healthy. CODE STATUS: FULL. DISPOSITION: Discharged to [facility] on 10/09/2017. Total time preparing and coordinating discharge was 32 minutes.
[2017-10-10] MEDS ORDERED: Furosemide 40 MG TAB PO SCH (07:30)
== END 2017-10-09 17:23 | DRG 291 ==
LOC: ERS 14:59 → CCU 17:40 → ONC 10-09 10:49
PROVIDERS: ADMIT Internal Medicine; ATTEND Internal Medicine
PROC: 0BH17EZ Insertion of Endotracheal Airway into Trachea, Via Natural or Artificial Opening (ICD-10-PCS; principal; 2017-10-04)
PROC: 5A1935Z Respiratory Ventilation, Less than 24 Consecutive Hours (ICD-10-PCS; 2017-10-04)
PROC: 4B02XTZ Measurement of Cardiac Defibrillator, External Approach (ICD-10-PCS; 2017-10-09)
DX: I11.0 Hypertensive heart disease with heart failure (principal); J96.02 Acute respiratory failure with hypercapnia; N17.9 Acute kidney failure, unspecified; J44.9 Chronic obstructive pulmonary disease, unspecified; C79.51 Secondary malignant neoplasm of bone; C79.89 Secondary malignant neoplasm of other specified sites; I48.0 Paroxysmal atrial fibrillation; E87.5 Hyperkalemia; C61 Malignant neoplasm of prostate; I25.10 Atherosclerotic heart disease of native coronary artery without angina pectoris; Z95.5 Presence of coronary angioplasty implant and graft; F31.9 Bipolar disorder, unspecified; Z86.73 Personal history of transient ischemic attack (TIA), and cerebral infarction without residual deficits; N40.0 Benign prostatic hyperplasia without lower urinary tract symptoms; I25.5 Ischemic cardiomyopathy; Z95.810 Presence of automatic (implantable) cardiac defibrillator; I50.43 Acute on chronic combined systolic (congestive) and diastolic (congestive) heart failure
CPT/HCPCS: 31500; 36415; 36416; 51702; 71045; 80048; 80053; 81003; 81015; 82553; 82805; 83605; 83690; 83735; 83880; 84443; 84484; 85025; 85610; 85730; 87040; 87086; 90471; 90670; 93005; 93306; 93798; 94002; 94003; 94640; 96365; 96366; 96368; 96375; A4216; C9113; G0009; J0692; J1650; J1940; J2704; J3010; J3370; J7050; J7611

== ENCOUNTER 2019-02-11 09:06 | Outpatient (CLI) | payer MEDICARE ==
--- NOTE | 2019-02-11 14:26 | NM ---
EXAM: Whole-body bone scan PROVIDED CLINICAL HISTORY: Prostate cancer COMPARISON: None FINDINGS: 33 mCi technetium 99m labeled MDP was given intravenously, followed by 3 hour postinjection anterior and posterior whole-body planar imaging. There are numerous foci of focal increased radiotracer activity throughout the axial skeleton and inv olving the right proximal femur, compatible with osseous metastatic disease. Degenerative type uptake involving the shoulders, right knee and both feet demonstrated. IMPRESSION: Findings compatible with osseous metastatic disease.
== END 2019-02-11 09:07 | disposition home or self-care (01) ==
LOC: NM 09:06
PROVIDERS: ATTEND Radiology Radiation Oncology
DX: C79.51 Secondary malignant neoplasm of bone (principal); C61 Malignant neoplasm of prostate
CPT/HCPCS: 78306; A9503

== ENCOUNTER 2019-04-20 11:41 | Emergency (ER) | payer MEDICARE ==
[2019-04-20] MEDS ORDERED: Ondansetron PF 4 MG/2 ML Vial ONE (12:17)
[2019-04-20 13:06] LABS: #Eosinphils 0.1 thou/uL (0.0-0.7); #Lymphocytes 0.7 thou/uL (1.20-3.40); #Monocytes 0.1 thou/uL (0.11-0.59); #Neutrophils 3.4 thou/uL (1.40-6.50); %Basophils 0.5 % (0.0-1.0); %Eosinophils 1.2 % (0.0-10.0); %Lymphocytes 17.1 % (21.0-51.0); %Monocytes 1.9 % (0.0-10.0); %Neutrophils 79.3 % (42.0-75.0); Hemoglobin 12.3 g/dL (14.0-18.0); Mean Corpuscular HGB CONC 33.9 g/dL (32.0-36.0); Mean Corpuscular Hemoglobin 34.5 pg (27.0-31.0); Mean Platelet Volume 8.4 fL (7.4-10.4); Platelet Count 121 thou/uL (130-400); RBC Distribution Width 12.6 % (11.5-14.5); Red Blood Cell (RBC) Count 3.58 mill/uL (4.70-6.10); White Blood Cell (WBC) Count 4.3 thou/uL (4.8-10.8)
[2019-04-20 13:15] LABS: ALT (SGPT) 26 U/L (8-55); AST (SGOT) 25 U/L (5-34); Albumin 3.8 g/dL (3.4-4.8); Alkaline Phosphatase 81 U/L (40-110); Anion Gap 17 mmol/L (10-20); BUN (Urea Nitrogen) 18 mg/dL (8.4-25.7); Bilirubin, Total 0.5 mg/dL (0.2-1.2); Calc. Creatinine Clearance 0 mL/min (70-130); Calcium 8.5 mg/dL (7.8-10.44); Carbon Dioxide 23 mmol/L (23-31); Chloride 100 mmol/L (98-107); Estimated GFR-MDRD 81; Globulin 2.7 g/dL (2.4-3.5); Glucose 123 mg/dL (83-110); Lipase 32 U/L (8-78); Potassium 4.6 mmol/L (3.5-5.1); Protein, Total 6.5 g/dL (5.8-8.1); Sodium 135 mmol/L (136-145)
[2019-04-20 14:25] LABS: INR-International Normal Ratio 1.1; PTT 30.1 SEC (22.9-36.1); Prothrombin Time 14.5 SEC (12.0-14.7)
--- NOTE | 2019-04-20 14:39 | CT ---
CT ABDOMEN WITH CONTRAST CT PELVIS WITH CONTRAST: DATE: 04/20/2019 HISTORY: 78-year-old male with constipation presents with acute abdominal pain and abdominal distention with n ausea and anorexia. COMPARISON: 07/22/2017 TECHNIQUE: IV injection of iodinated contrast media: administered. Oral contrast media:Administered FINDINGS: Multilevel severe degenerative disc disease throughout the lumbar spine. Grade 1 anterolisthesis of L 5 on S1 due to bilateral L5 pars interarticularis defects. Severe neural foraminal stenosis on the right at L4-5 and bilaterally at L5-S1. Large number of focal osteoblastic and mixed osteoblastic and osteolytic lesions throughout lumbar spine, severely involving bilateral iliac bones, and sacrum, representing a dramatic interval change. New left hip replacement metallic prosthesis causes streak a rtifact partially obscuring adjacent structures including portions of the pelvic cavity. Again noted are the multiple partially calcified gallstones within a mildly distended gallbladder. No gallbladder mural thickening or pericholecystic edema. A few tiny hypodensities in the upper portion of right lobe of liver, unchanged, presumably cysts. No abdominal aortic aneurysm. Retroaortic and left para-aortic cluster of multiple pathologically enlarged retroperitoneal lymph no mirian, improved since prior study. The aggregate currently measures 3.5 x 5.5 x 3 cm. The largest individual lymph node is a left para-aortic node measuring 2 cm in greatest dimension. The previously demonstrated significantly enlarged multiple left internal iliac chain lymph nodes, souza ve significantly improved, and is currently difficult to identify as a discrete lymph node, only a small focus of what appears to be scar tissue, 2 x 1 cm. No small bowel dilation. Extensive descending and sigmoid colonic diverticulosis without diverticulit is. Nonspecific mild mural thickening of urinary bladder, much improved since previous CT. No adrenal nodule. Unremarkable pancreas and spleen. No ascites or pneumoperitoneum. Lung bases are theo sly clear. Medialized cecum at midline and upper abdomen adjacent to stomach. Appendix not identified. Unremarkable adrenals, pancreas, and spleen. No abdominal aortic aneurysm. The previously demonstrated severe bilateral hydronephrosis has much improved and is now mild to mode rate bilateral hydronephrosis. The previously demonstrated retroperitoneal and intraperitoneal and intrapelvic edema has resolved. IMPRESSION: 1) new finding of diffuse skeletal metastatic disease. 2. Cholelithiasis without evidence of acute cholecystitis. 3. Interval improvement in the previously severe bilateral hydronephrosis. Currently, there is mild t o moderate bilateral hydronephrosis. 4. Interval improvement in malignant metastatic retroperitoneal lymphadenopathy, but significant amou nt remains. 5. Interval improvement in the left internal iliac chain metastatic lymphadenopathy. 6. Severe lumbar spondylosis: Multilevel severe degenerative disc disease and facet osteoarthrosis. 7. Grade 1 spondylolisthesis at L5-S1 due to bilateral L5 spondylolysis. 8. Severe neural foraminal stenosis bilaterally at L5-S1 and on the right at L4-5.
== END 2019-04-20 16:05 | disposition home or self-care (01) ==
LOC: ERS 11:41
DX: K62.89 Other specified diseases of anus and rectum (principal); C79.82 Secondary malignant neoplasm of genital organs; C34.90 Malignant neoplasm of unspecified part of unspecified bronchus or lung; I12.9 Hypertensive chronic kidney disease with stage 1 through stage 4 chronic kidney disease, or unspecified chronic kidney disease; G40.909 Epilepsy, unspecified, not intractable, without status epilepticus; I25.10 Atherosclerotic heart disease of native coronary artery without angina pectoris; I49.9 Cardiac arrhythmia, unspecified; I48.91 Unspecified atrial fibrillation; N18.9 Chronic kidney disease, unspecified; I25.2 Old myocardial infarction; Z87.891 Personal history of nicotine dependence; Z79.899 Other long term (current) drug therapy; Z79.82 Long term (current) use of aspirin
CPT/HCPCS: 74177; 80053; 82274; 83690; 85025; 85610; 85730; 96361; 96374; J2405

== ENCOUNTER 2019-09-27 01:20 | Inpatient (IN) | payer MEDICARE ==
[2019-09-27] MEDS ORDERED: Magnesium 2 GM/50 ML BAG (IN WATER) ONE (01:28)
[2019-09-27 01:45] LABS: #Basophils 0.1 thou/uL (0.0-0.2); #Eosinphils 0.3 thou/uL (0.0-0.7); #Lymphocytes 4.4 thou/uL (1.20-3.40); #Monocytes 1.1 thou/uL (0.11-0.59); #Neutrophils 5.3 thou/uL (1.40-6.50); %Basophils 1.3 % (0.0-1.0); %Eosinophils 3.1 % (0.0-10.0); %Lymphocytes 39.4 % (21.0-51.0); %Monocytes 9.4 % (0.0-10.0); %Neutrophils 46.9 % (42.0-75.0); Hemoglobin 12.9 g/dL (14.0-18.0); Mean Corpuscular HGB CONC 32.8 g/dL (32.0-36.0); Mean Corpuscular Hemoglobin 33.1 pg (27.0-31.0); Platelet Count 178 thou/uL (130-400); RBC Distribution Width 14.4 % (11.5-14.5); Red Blood Cell (RBC) Count 3.91 mill/uL (4.70-6.10); White Blood Cell (WBC) Count 11.2 thou/uL (4.8-10.8)
[2019-09-27 02:02] LABS: ALT (SGPT) 25 U/L (8-55); AST (SGOT) 25 U/L (5-34); Alkaline Phosphatase 106 U/L (40-110); Anion Gap 20 mmol/L (10-20); BUN (Urea Nitrogen) 32 mg/dL (8.4-25.7); Bilirubin, Total 0.4 mg/dL (0.2-1.2); Calc. Creatinine Clearance 0 mL/min (70-130); Calcium 9.3 mg/dL (7.8-10.44); Carbon Dioxide 23 mmol/L (23-31); Chloride 99 mmol/L (98-107); Estimated GFR-MDRD 44; Glucose 248 mg/dL (83-110); Magnesium 2.3 mg/dL (1.6-2.6); Potassium 4.7 mmol/L (3.5-5.1); Sodium 137 mmol/L (136-145)
[2019-09-27] MEDS ORDERED: Lidocaine 2 gm/D5W 500 ml 500 ML ONE (02:04)
[2019-09-27 02:34] LABS: CKMB 5.2 ng/mL (0-6.6)
[2019-09-27] MEDS ORDERED: Lidocaine 2 gm/D5W 500 ml 500 ML IVPB SCH (03:15)
[2019-09-27] MEDS ORDERED: HumaLOG 300 UNITS/3 ML VIAL SC PRN ×2 (03:22→04:49)
[2019-09-27] MEDS ORDERED: Dextrose 5% in Water 1,000 ML IV PRN ×2 (03:22→04:48)
[2019-09-27] MEDS ORDERED: Dextrose 50% Abboject 50 ML SYRINGE SLOW IVP PRN ×2 (03:22→04:48)
[2019-09-27] MEDS ORDERED: Furosemide 20 MG/2 ML VIAL SLOW IVP SCH ×2 (03:30→05:00)
--- NOTE | 2019-09-27 04:03 | HP ---
CHIEF COMPLAINT: Defibrillator discharge. HISTORY OF PRESENT ILLNESS: This patient is an 79-year-old male, with a history of coronary artery disease; ischemic cardiomyopathy, ejection fraction last noted around 35% on an echo performed here in 2018. The patient has a history of V-tach and has a defibrillator. He has had some prior discharges, has been followed at [facility], but is anticipating moving his care to this facility and [facility] providers. The patient reports that he started having recurrent defibrillator discharges this evening. He states that he tends to sit in the chair, watch television, and put something under his chin to keep his head propped up. He did that and then felt a warmth in his face and then a discharge. He was getting discharges about every 3 minutes. His roommate called for an ambulance and the patient was subsequently brought to the emergency department. The patient has been running low on his Coreg and has been only rationing it waiting until his new supply can and completely ran out today, but he has not been taking it as prescribed. He has a history of allergies to calcium channel blockers and other beta blockers as well as amiodarone. In the emergency department, he had did receive magnesium and started on a lidocaine drip at the recommendations of Dr. Fortune, Cardiology. Since that time, he has had improvement of his overall rhythm and no further discharges. The ER physician noted the patient was having episodes of bradycardia into the 40s with subsequent runs of V-tach in the 200s, followed by a discharge. REVIEW OF SYSTEMS: Patient has had some recent lower extremity edema, but reports that was likely from a DVT and has been better with some diuresis. All other systems reviewed and all were negative, except for those things mentioned in the HPI. PAST MEDICAL HISTORY: Notable for coronary artery disease with prior stents, has ischemic cardiomyopathy with EF of 35%. He has V-tach with the defibrillator pacemaker placed. Has a history of prior CVA with no residual neurological deficits. He has a history of seizure disorder, chronic sinusitis, peptic ulcer disease, COPD, glaucoma, bilateral carotid stenosis, hypertension, bipolar disorder, atrial fibrillation, BPH, as well as prostate cancer. He also reports multiple myeloma. States he has lesions in his lung and in his kidneys. Has a history of metastatic lesions to the bone. SURGICAL HISTORY: PCI with coronary stents, mastoid surgery, peptic ulcer repair in 1980, right carotid endarterectomy, percutaneous closure of a PFO, defibrillator placement, inguinal hernia repair, cardiac ablation for supraventricular tachycardia. He has had right knee surgery followed by subsequent staph infection and he had a vascular procedure performed recently on his right lower extremity for a DVT. States that he was admitted to [facility] for that and was only discharged on September 12. FAMILY HISTORY: Father at 59 with heart disease. Mother had dementia and at 73. SOCIAL HISTORY: The [facility] was [facility] a [facility] resident, but now lives independently and ambulates with a walker. Has a roommate. Denies alcohol, drugs, or tobacco. ALLERGIES: ACETAMINOPHEN, AMLODIPINE, AMIODARONE, ARBS, LEVOFLOXACIN, MEPERIDINE, VALSARTAN, AND BETA BLOCKERS OTHER THAN THE CARVEDILOL. CURRENT MEDICATIONS: 1. Clonidine 0.1 mg daily. 2. Multivitamin one p.o. daily. 3. Flonase nasal spray as needed. 4. Chromium picolinate as needed. 5. Coreg 3.125 one p.o. b.i.d. 6. Prednisone 5 mg p.o. daily. PHYSICAL EXAMINATION: VITAL SIGNS: BP 145/74, pulse 95, respirations 18, and O2 saturation 96% on 4 L. GENERAL APPEARANCE: Age-appropriate male. He is in no distress. He is awake and alert, pleasant, cooperative. HEENT: PERRL. No OP lesions. NECK: Supple and symmetric without lymphadenopathy, JVD, or bruits. HEART: Regular rate and rhythm without murmurs, gallops, or rubs. LUNGS: Clear to auscultation bilaterally with good chest wall expansion and air exchange. ABDOMEN: Soft, nontender, and nondistended. Positive bowel sounds. No masses. No organomegaly. EXTREMITIES: No cyanosis or clubbing. There is trace edema in both lower extremities. PSYCH: Normal affect and behavior. NEUROLOGIC: Cognitively intact. Cranial nerves intact. Moves all extremities spontaneously with no evidence of focal deficits. LABORATORY DATA: White count 11.2, hemoglobin 12.9, and platelets 178. Sodium 137, potassium 4.7, CO2 is 23, BUN 32, creatinine is 1.53, glucose 248, and magnesium 2.3. Troponin 0.153. BNP is 3386. Chest x-ray shows cardiomegaly with defibrillator in place. May have some mild pulmonary vascular congestion. IMPRESSION AND PLAN: 1. Defibrillator discharge, appears to be secondary to true episodes of ventricular tachycardia. Consult Cardiology where the patient's care. He is receiving IV lidocaine, which seems to be controlling his rhythm at the moment. We will keep him in the ICU for monitoring. We will also get him back on his Coreg, which he has been taking only intermittently trying to ration his medicines. 2. Chronic obstructive pulmonary disease. Continue supplemental oxygen. We will avoid nebulizers if possible, so as not to cause additional tachycardia or myocardial irritability. 3. Acute on chronic kidney disease. The patient typically runs stage 2 to 3 level GFRs, most recent was 58 in July. He is now at 44, which is the lowest he has been based on records in our system going back to 2012. We will reevaluate this in the morning. 4. Hyperglycemia. Patient reports history of "borderline" diabetes. However, his number is certainly elevated, could be some demargination from the defibrillator shocks or elevated because of the prednisone. We will order Accu-Cheks and sliding scale. 5. Ischemic cardiomyopathy, appears to have an elevated BNP as well as some mild pulmonary vascular congestion. We will give him a small dose of IV Lasix. He indicates that he has recently been on some Lasix for lower extremity edema. 6. History of recent deep venous thrombosis, on Eliquis. He took a dose in the morning, but not in the evening. We will hold that until the pacemaker situation can be further elucidated as it is unclear at this point that it is working properly. 7. History of prostate cancer. Patient reports that he has lesions in his lung and his kidneys. Historically, he has had bone mets likely that the lesions in his lung and kidney are in fact from the prostate, although he also reports multiple myeloma, although it does not appear to be the case on his current labs, may need to follow up with Dr. Bull when possible to get more detail on those. Regardless, they do not appear to be significantly contributing to his current situation. 8. History of coronary artery disease. Patient is not currently on aspirin, although he is on Eliquis. Again, we will need to try to get some clarity based on his history as to the appropriate regimen. 9. Indeterminate troponin, likely elevated due to the defibrillator discharges and not true ischemic event, although we will await until Cardiology say about that as well. Job ID: [id number]
[2019-09-27 06:09] LABS: Troponin I 2.229 ng/mL (< 0.028)
[2019-09-27] MEDS ORDERED: predniSONE 5 MG TAB PO SCH (08:00)
[2019-09-27] MEDS ORDERED: Carvedilol 3.125 MG TAB PO SCH (08:00)
--- NOTE | 2019-09-27 08:21 | RAD ---
CHEST ONE VIEW: HISTORY: Defibrillator discharging every 3 to 4 minutes. COMPARISON: 10/04/2017 FINDINGS: Triple-lead left subclavian AICD device is again noted in place. The cardiac silhouette is enlarged. The pulmonary vasculature is within normal limits. There is minimal patchy density in the right hilar region, which may be related to vascular structures. An overlying area of pneumonitis cannot be enti rely excluded. The lungs are otherwise clear. No other interval change. IMPRESSION: 1. Patchy parenchymal density, right hilar region, which may be attributable to superimposition of st ructures but focal area of pneumonitis cannot be entirely excluded. 2. Cardiomegaly. POS: OFF
[2019-09-27 08:28] LABS: Troponin I 2.993 ng/mL (< 0.028)
[2019-09-27] MEDS: predniSONE 5 MG TAB PO SCH (08:46)
[2019-09-27] MEDS: Carvedilol 3.125 MG TAB PO SCH ×2 (08:46→16:16)
--- NOTE | 2019-09-27 09:52 | CON ---
DATE OF CONSULTATION: 09/27/2019 SERVICE: Pulmonary Medicine. REASON FOR CONSULTATION: ICU patient. HISTORY OF PRESENT ILLNESS: The patient is an 79-year-old white male with past medical history for systolic heart failure with an AICD in place. He was in his usual state of health at home when his AICD started firing. Over 32 times, he ended up getting defibrillated. Interrogation was performed. Looks as though they were appropriate. Either way, he was placed on lidocaine drip, and he has not had any additional events since then. He denies any current chest discomfort, nausea, vomiting, fevers, or chills. He has no shortness of breath. There is a question about his compliance at home. His roommate suggests that he does not do things that are that would be appropriate to keep him out of the hospital. PAST MEDICAL HISTORY: 1. Chronic systolic heart failure. 2. Coronary artery disease. 3. Hypertension. 4. Dyslipidemia. 5. COPD. 6. Peptic ulcer disease. 7. Seizure disorder. 8. History of CVA. 9. Multiple myeloma. 10. History of prostate cancer, status post radiation therapy. PAST SURGICAL HISTORY: 1. Percutaneous coronary intervention with multiple stent placements. 2. Mastoid surgery. 3. Gastric surgery for peptic ulcer disease. 4. Right carotid artery endarterectomy. 5. PFO closure, percutaneous. 6. AICD placement. 7. Repair of inguinal hernia. 8. Cardiac ablation. 9. Knee surgeries. 10. Right lower extremity surgery for DVT. FAMILY HISTORY: Noncontributory. SOCIAL HISTORY: The patient denies current tobacco use. He has a remote history of smoking. He has no exposure to chemicals, dust, asbestos, or tuberculosis otherwise. He does not use any alcohol or illicit drugs. ALLERGIES: ACETAMINOPHEN, AMLODIPINE, AMIODARONE, ARBS, LEVOFLOXACIN, MEPERIDINE, VALSARTAN, BETA-BLOCKERS OTHER THAN COREG. MEDICATIONS: List of his inpatient medications was reviewed. No specific updates were made at this time. REVIEW OF SYSTEMS: General, head, ears, eyes, nose, throat, cardiovascular, respiratory, GI, , musculoskeletal, neurologic, and skin is negative except as mentioned in the HPI. PHYSICAL EXAMINATION: VITAL SIGNS: Afebrile. Pulse 70, blood pressure 120/75, respirations 16, saturation 96%, currently on room air. GENERAL: The patient is awake and alert, in no apparent distress. LUNGS: Wonderful air entry with a slightly prolonged expiratory phase, but no wheezing. HEART: Normal rate, regular. ABDOMEN: Soft, nontender, nondistended. Bowel sounds are positive. MUSCULOSKELETAL: No cyanosis or clubbing. There is 2+ pitting in the right lower extremity and trace pitting in the left lower extremity. The right lower extremity has little erythema to it and is warm. It has been like this for some time and he suggested secondary to his DVT. : No Jack. LABORATORY DATA: WBC 11.2, hemoglobin 12.9, platelets 178,000. Troponin is gently up-trending to 2.99. BNP 3300. Creatinine 1.53, which is slightly above baseline of 1.2. Liver function studies are unremarkable. IMAGING DATA: Chest x-ray demonstrates cardiomegaly with a 3-lead AICD device in place. He has right mid lung zone inflammatory changes. I agree that they are likely accentuated by overlying structures. ASSESSMENT: 1. Acute on chronic systolic heart failure. 2. Ventricular tachycardia, sustained, status post multiple defibrillations with AICD. 3. Chronic kidney disease. 4. History of prostate cancer. 5. Medical noncompliance based on what the roommate is suggesting. DISCUSSION AND PLAN: The patient is doing great from respiratory standpoint. He will remain in the IMCU until Cardiology and likely Electrophysiology has a chance to look at the patient. Pulmonary will follow along, but at this point, there are no acute pulmonary concerns. 70 minutes have been devoted to this patient in various activities. I personally reviewed all imaging studies and laboratory data noted within this document. For fifty percent of this time, I was interacting with the patient at the bedside or coordinating care with the care team. For the remainder of the time I was immediately available to the patient in the hospital unit. Job ID: [id number] [facility]
--- NOTE | 2019-09-27 13:03 | PDOC.EVN ---
Event Note - Event Note Event Note: The patient states his ICD hasn't fired since he got here. No chest pain or palpitations. Currently on lidocaine drip. BP was 160/100 this am, but came down to 150/80 after 2 hours with no intervention per nursing. Patient has had no urine output this am. Patient's last bowel movement was yesterday. Patient denies cough or shortness of breath Vitals: BP 150/80, rest of vitals stable CV: RRR, no murmurs, rubs, gallops Lungs: CTAB Abdomen: + BS, soft, nontender, nondistended Extremities: no edema CXR: right hilar density. Cardiomegaly A/P: 79 year old male who presented with 31 ICD firings #S/p ICD shock #Troponin elevation - continue lidocaine drip - no chest pain currently, will recheck EKG and check an ECHO. - awaiting cardiology consult - mild CHF noted on xray with elevated BNP, s/p 40 mg IV lasix Leukocytosis - WBC 11.2, will check UA. Chest X ray shows right hilar density but doesn't really look like pneumonia. Will hold off on antibiotics given asymptomatic Decreased urine output- will check bladder scan Macrocytic anemia - Hb 12.9 check folate level in am. B12 normal 07/21
[2019-09-27] MEDS ORDERED: Senokot S 8.6-50 MG TAB PO SCH (13:15)
[2019-09-27 14:10] LABS: CKMB 19.5 ng/mL (0-6.6)
[2019-09-27] MEDS ORDERED: Furosemide 40 MG/4 ML VIAL ONE (14:20)
[2019-09-27 14:25] LABS: Actual Bicarbonate (HCO3a) 23.3 mEq/L (22-28); CO2 Tension 41.8 mmHg (35.0-45.0); Calcium, Ionized 1.15 mmol/L (1.12-1.30); Carboxyhemoglobin (COHb) 1.2 gm% (0.0-3.0); Hemoglobin (Hb) 13.3 g/dL (14.0-18.0); O2 Tension (PaO2) 71.9 mmHg (> 60.0); Potassium - ABG Lab 4.87 mmol/L (3.70-5.30); pH, Arterial 7.36 (7.35-7.45)
[2019-09-27] MEDS ORDERED: Labetalol HCl 100 MG/20 ML VIAL SLOW IVP PRN (14:26)
[2019-09-27] MEDS ORDERED: Labetalol HCl 100 MG/20 ML VIAL ONE (14:26)
[2019-09-27] MEDS ORDERED: Furosemide 40 MG/4 ML VIAL SLOW IVP SCH (14:30)
--- NOTE | 2019-09-27 14:31 | RAD ---
EXAM: CHEST ONE VIEW HISTORY: Follow-up evaluation. Defibrillator discharging every 3 to 4 minutes. COMPARISON: 09/27/2019 at 0114 hours FINDINGS: Triple lead left subclavian AICD device remains in place. Metallic densities overlie the cardiac silh ouette to the right of midline which may represent an atrial occlusion device. The cardiac silhouette remains in enlarged. There is mild increase in bilateral perihilar interstitial densities on this examination compared to prior study. Slight blunting of the right lateral costophrenic angle is present which may represent tiny right pleural effusion versus pleural and parenchymal scarr ing. The left lateral costophrenic angle is excluded from view. No other interval change. IMPRESSION: 1. Cardiomegaly with mild prominence of perihilar interstitial densities which could be related to an element of mild pulmonary edema. Follow-up evaluation is suggested. 2. Tiny right pleural effusion versus pleural and parenchymal scarring.
[2019-09-27 14:36] LABS: Puncture Site LRA
[2019-09-27] MEDS ORDERED: Lorazepam 2 MG/ML VIAL ONE (14:44)
[2019-09-27] MEDS ORDERED: Sodium Chloride 0.9% 500 ML IVPB SCH (16:00)
[2019-09-27] MEDS: Lidocaine 2 gm/D5W 500 ml 500 ML IVPB SCH (18:01)
--- NOTE | 2019-09-27 18:41 | CON ---
DATE OF CONSULTATION: HISTORY OF PRESENT ILLNESS: Catracho Knowles is an 79-year-old white male, admitted after multiple episodes of ventricular fibrillation and 32 shocks from his ICD. He was evaluated by Dr. Patino in September 2017 when he was admitted here. Prior to that, he had a biventricular ICD placed and had previous stent placement. Echo at that time revealed ejection fraction of 30% to 35%. He had previously been followed by Dr. Rodriguez. After that hospitalization, he apparently has been followed by [facility], but now is decided move his care to [place]. Apparently, the patient has history of significant noncompliance with all of his medications. He had multiple ICD shocks and his roommate called for EMS. He apparently has been running low on his carvedilol and completely ran out yesterday when he had the ventricular fibrillation. In the emergency room, I was called for guidance. Apparently, the patient has an allergy to amiodarone and when I asked some what the allergy was, he apparently told the ER staff that he develops anaphylaxis. I, therefore, instructed them to give him 1 mg/kg of lidocaine followed by 2 mg/minute drip. He has not had any further ICD discharges since that time. The patient has been given intravenous Ativan and is essentially unresponsive at the present time and so I could not get any further history. PAST MEDICAL HISTORY: Coronary artery disease with history of stent placement, chronic systolic heart failure, history of CVA with no residual, COPD, hypertension, bipolar disorder, atrial fibrillation, BPH, prostatic cancer, and multiple myeloma with apparent metastatic lesions to his bones. PAST SURGICAL HISTORY: Coronary artery stent placement, biventricular ICD, percutaneous closure of PFO, peptic ulcer repair in 1980, right carotid endarterectomy by Dr. Salmon, mastoid surgery, SVT, and atrial fibrillation ablation. MEDICATIONS: (It is unclear what he is actually taking and apparently ran out of the carvedilol the day of his episodes of ventricular fibrillation after taking lower doses for several days). 1. Albuterol q.4 hours p.r.n. 2. Eliquis 5 mg b.i.d. 3. Carvedilol 3.125 b.i.d., although it was unclear if he is taking that. 4. Clonidine 0.1 mg at bedtime. 5. Flonase, hawthorn heller extract daily. 6. Multivitamin daily. 7. Zofran p.r.n. 8. Torsemide 20 mg daily p.r.n. ALLERGIES: INCLUDE ACETAMINOPHEN, AMIODARONE, AMLODIPINE, ARB DRUGS, CALCIUM CHANNEL BLOCKERS, LEVAQUIN, DEMEROL, DIOVAN, AND BETA BLOCKERS. SOCIAL HISTORY: He does not smoke or drink. He apparently lives independently. REVIEW OF SYSTEMS: Unobtainable at the present time. PHYSICAL EXAMINATION: VITAL SIGNS: Blood pressure 95/65 and pulse of 70. HEENT: PERRL. NECK: Supple. CHEST: Clear. CARDIAC: S1 and S2 normal without any S3, S4, or murmurs. ABDOMEN: Obese. Normal bowel sounds. No tenderness or organomegaly. EXTREMITIES: Revealed trace pretibial edema. NEUROLOGIC: The patient has recently been sedated with Ativan. LABORATORY DATA: EKGs revealed a paced rhythm and at times, ventricular bigeminy. Hemoglobin 12.9, hematocrit 39.5, white count 11,200, platelets 178,000. A pH 7.36, pCO2 of 41.8, pO2 of 71.9. Sodium 137, potassium 4.7, chloride 99, carbon dioxide 23, BUN 32, creatinine 1.53. BNP 3386.4. Troponin I is up to 2.993. IMPRESSION: 1. Recurrent episodes of ventricular tachycardia and ventricular fibrillation with apparently 32 shocks at home. This certainly could be due to running out of his carvedilol. This also could be ischemically mediated. The patient has been sedated with Ativan and is unable to give any history at this time. 2. Questionable ischemic cardiomyopathy, ejection fraction of 30% to 35% two years ago. 3. Coronary artery disease, history of stent placement. 4. History of cardiac ablations for supraventricular tachycardia and atrial fibrillation. 5. Chronic obstructive pulmonary disease. 6. Acute on chronic kidney disease. 7. History of recent deep venous thrombosis, on Eliquis. 8. History of prostate cancer. 9. History of multiple myeloma. PLAN: Carvedilol has been resumed. Currently, he is on lidocaine 2 mg/minute. Once he has had several doses of his carvedilol, the lidocaine will be gradually tapered. Also, discussion needs to be held in regard to exactly what type of reaction he had to amiodarone in the past. Apparently, he is very noncompliant with any medications and this will continue to be a difficult problem going forward. He also appears to get his care for multiple places here, [facility] and [facility], history with Dr. 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 Job ID: [id number]
[2019-09-27] MEDS: Lorazepam 2 MG/ML VIAL SLOW IVP PRN ×2 (19:15→21:50)
[2019-09-27] MEDS: Senokot S 8.6-50 MG TAB PO SCH (20:40)
[2019-09-28 03:59] LABS: Anion Gap 17 mmol/L (10-20); BUN (Urea Nitrogen) 24 mg/dL (8.4-25.7); Calc. Creatinine Clearance 55 mL/min (70-130); Calcium 8.5 mg/dL (7.8-10.44); Carbon Dioxide 24 mmol/L (23-31); Chloride 99 mmol/L (98-107); Estimated GFR-MDRD 60; Glucose 132 mg/dL (83-110); Sodium 136 mmol/L (136-145)
[2019-09-28] MEDS: Lorazepam 2 MG/ML VIAL SLOW IVP PRN (04:16)
[2019-09-28 04:21] LABS: Hemoglobin 11.9 g/dL (14.0-18.0); Mean Corpuscular HGB CONC 33.5 g/dL (32.0-36.0); Mean Corpuscular Hemoglobin 33.3 pg (27.0-31.0); Mean Corpuscular Volume 99.7 fL (78.0-98.0); Platelet Count 112 thou/uL (130-400); RBC Distribution Width 14.1 % (11.5-14.5); Red Blood Cell (RBC) Count 3.56 mill/uL (4.70-6.10); White Blood Cell (WBC) Count 8.8 thou/uL (4.8-10.8)
[2019-09-28] MEDS ORDERED: Carvedilol 3.125 MG TAB PO SCH (08:45)
[2019-09-28] MEDS: Senokot S 8.6-50 MG TAB PO SCH ×2 (09:07→20:53)
[2019-09-28] MEDS: predniSONE 5 MG TAB PO SCH (09:08)
--- NOTE | 2019-09-28 09:14 | PRG ---
DATE OF SERVICE: 09/28/2019 SERVICE: Pulmonary Medicine. INTERVAL HISTORY: The patient is doing fine from respiratory standpoint. [place] ma, he got extremely agitated overnight. He ended up getting Ativan. We stayed away from giving him any Haldol because of the QT prolonging properties. He remains on a lidocaine drip. He has been on it for well over 24 hours. There were no significant events on telemetry other than some bigeminy yesterday. He developed some increasing lethargy, and instability with very elevated blood pressure. We were able to give him some blood pressure medication, put him on CPAP, and today he looks much more refreshed, and comfortable. We are going to give him a BiPAP break today. PHYSICAL EXAMINATION: VITAL SIGNS: Afebrile, pulse 72, blood pressure 130/88, respirations 16, saturation 97% on room air. GENERAL: The patient is awake and alert, in no apparent distress. LUNGS: Good air entry bilaterally. No prolonged expiratory phase or wheezing. HEART: Normal rate and regular. ABDOMEN: Soft, nontender, nondistended. Bowel sounds are positive. MUSCULOSKELETAL: No cyanosis or clubbing. There is no pitting in the bilateral lower extremities. NEUROLOGICAL: Grossly nonfocal. LABORATORY DATA: WBC 8.8, hemoglobin 11.9, platelets 112,000. PH 7.36, pCO2 of 42, pO2 of 72. Creatinine 1.17, which is beautifully downtrending. Basic metabolic profile is otherwise unremarkable. Folic acid is negative. Troponin is gently up trending. IMAGING: Chest x-ray demonstrates cardiomegaly with some degree of pulmonary edema. Small right pleural effusion is likely present. ASSESSMENT: 1. Sustained ventricular tachycardia, resolved. 2. [id number] systolic heart failure. 3. Chronic kidney disease. 4. History of prostate cancer. 5. Medical noncompliance. 6. Schizophrenia. DISCUSSION AND PLAN: The patient will be given breaks off the CPAP. We will do this 3 times daily and increase as tolerated. Hopefully, he will go the next 24 hours without the need of noninvasive ventilation. Lidocaine drip will be decreased as the patient has had multiple doses of Coreg. If he has recurrence in tachyarrhythmias, we will go back up to full treatment dose. Critical Care will continue to follow in this location. Job ID: [id number]
[2019-09-28 11:13] LABS: Bilirubin Negative (Negative); Blood, Urine 2+ (Negative); Clarity Clear (Clear); Glucose, Urine (Dipstick) Normal (Negative); Leukocyte 500 Leu/uL (Negative); Nitrite Negative (Negative); Protein, Urine (Dipstick) 30 mg/dL (Neg-Trace); Squamous Epithelial None Seen HPF (0-3); Urobilinogen Normal mg/dL (Less than 2); WBC/HPF Greater than 50 HPF (0-3)
[2019-09-28 11:18] LABS: Bacteria/HPF 1+ HPF (None Seen)
[2019-09-28 11:21] LABS: Urine Culture Reflex Yes Yes
[2019-09-28] MEDS: Lidocaine 2 gm/D5W 500 ml 500 ML IVPB SCH (14:58)
--- NOTE | 2019-09-28 15:09 | PDOC.HOSPP ---
- Subjective Encounter Date: 09/28/19 Encounter Time: 12:00 Subjective: CC: ICD firing The patient denies any complaints of chest pain or palpitations. He is still drowsy some. He denies SOB - Objective Vital Signs & Weight: Vital Signs (12 hours) Temp Pulse Pulse Pulse Resp BP BP 09/28/19 13:40 70 18 09/28/19 13:10 104 H 94 134/105 H 147/82 H 09/28/19 12:00 09/28/19 08:00 97.8 F 09/28/19 06:52 70 09/28/19 06:51 70 12 09/28/19 04:33 71 09/28/19 04:00 98.2 F Pulse Ox 09/28/19 13:40 97 09/28/19 13:10 09/28/19 12:00 94 L 09/28/19 08:00 96 09/28/19 06:52 09/28/19 06:51 99 09/28/19 04:33 09/28/19 04:00 Weight Admit Weight 174 lb 9.698 oz Weight 172 lb 1.6 oz Most Recent Monitor Data Heart Rate from ECG 94 NIBP 159/136 NIBP BP-Mean 143 Respiration from ECG 20 SpO2 92 I&O: 09/27/19 09/28/19 09/29/19 06:59 06:59 06:59 Intake Total 2 1185 20 Output Total 3161 255 Balance Result Diagrams: 09/28/19 03:25 09/28/19 03:25 Additional Labs: Accuchecks 09/28/19 09/27/19 09/27/19 11:09 20:53 15:40 POC Glucose 118 H 127 H 173 H 09/27/19 06:24 POC Glucose 130 H Hospitalist ROS - Review of Systems Constitutional: denies: fever, chills Cardiovascular: denies: palpitations Gastrointestinal: denies: abdominal pain - Medication Medications: Active Medications Generic Name Dose Route Start Last Admin Trade Name Freq PRN Reason Stop Dose Admin Albuterol/Ipratropium 3 ml 09/27/19 19:00 09/28/19 13:40 Duoneb NEB 3 ml [id number] SANNA Administration Lidocaine HCl/Dextrose 500 mls @ 0 mls/hr 09/27/19 05:00 09/28/19 14:58 Lidocaine 2 Gm/D5w 500 Ml IVPB 500 mls INF SANNA Administration Protocol Titrate Dexmedetomidine HCl 200 mcg/ 50 mls @ 0 mls/hr 09/28/19 08:45 09/28/19 10:00 Sodium Chloride IVPB 50 mls INF SANNA Administration Protocol Per Protocol Insulin Human Lispro 0 units 09/27/19 04:49 09/27/19 11:03 Humalog SC 3 unit .MILD SLIDING SCALE PRN Administration Mild Correctional Scale Lorazepam 2 mg 09/27/19 15:46 09/28/19 04:16 Ativan SLOW IVP 2 mg Q2H PRN Administration .ANXIETY Prednisone 5 mg 09/27/19 08:00 09/28/19 09:08 Prednisone PO 5 mg QAM-WM SANNA Administration Senna/Docusate Sodium 1 tab 09/27/19 21:00 09/28/19 09:07 Senokot S PO 1 tab BID SANNA Administration - Exam General Appearance: NAD, awake alert General - other findings: intermittently drowsy Eye: PERRL, anicteric sclera ENT: normocephalic atraumatic, no oropharyngeal lesions Neck: supple, symmetric, no JVD Heart: RRR, no murmur, no gallops, no rubs Respiratory: CTAB, no wheezes, no rales, no ronchi Gastrointestinal: soft, non-tender, non-distended, normal bowel sounds, no hepatomegaly Hosp A/P - Plan Chest X ray 09/26: mild pulmonary edema ECHO: EF 20-25%, severe MR, severe TR 79 year old male who presented with 31 ICD firings, has history of noncompliance #Acute systolic heart failure #Severe mitral regurgitation #SEvere tricuspid regurgitation - ECHO shows EF 20-25%, severe MR and TR - 40 mg IV lasix on 09/26. Currently down to 3L nasal cannula . Will give another 20 mg IV lasix #S/p ICD shock #Troponin elevation - continue lidocaine drip - appreciate cardiology recommendations Leukocytosis - resolved. UA appears turbid, pending urin culture - Chest X ray shows right hilar density but doesn't really look like pneumonia. Will hold off on antibiotics given asymptomatic Macrocytic anemia - Hb 12.9 Folate level normal. B12 normal 07/21
[2019-09-28] MEDS ORDERED: Furosemide 20 MG/2 ML VIAL SLOW IVP SCH (15:15)
[2019-09-28] MEDS ORDERED: Norepinephrine 8 MG/0.9% NS 250 ML IVPB SCH (15:47)
[2019-09-28] MEDS: Carvedilol 6.25 MG TAB PO SCH (16:33)
[2019-09-28] MEDS: Carvedilol 3.125 MG TAB PO SCH (18:04)
[2019-09-29] MEDS: Lorazepam 2 MG/ML VIAL SLOW IVP PRN (00:23)
[2019-09-29 04:03] LABS: Hemoglobin 11.5 g/dL (14.0-18.0); Mean Corpuscular HGB CONC 34.1 g/dL (32.0-36.0); Mean Corpuscular Hemoglobin 33.5 pg (27.0-31.0); Mean Corpuscular Volume 98.3 fL (78.0-98.0); Mean Platelet Volume 7.8 fL (7.4-10.4); Platelet Count 123 thou/uL (130-400); RBC Distribution Width 14.1 % (11.5-14.5); Red Blood Cell (RBC) Count 3.42 mill/uL (4.70-6.10); White Blood Cell (WBC) Count 6.9 thou/uL (4.8-10.8)
[2019-09-29 04:22] LABS: Anion Gap 16 mmol/L (10-20); BUN (Urea Nitrogen) 21 mg/dL (8.4-25.7); Calc. Creatinine Clearance 64 mL/min (70-130); Calcium 8.2 mg/dL (7.8-10.44); Carbon Dioxide 25 mmol/L (23-31); Chloride 100 mmol/L (98-107); Estimated GFR-MDRD 72; Glucose 131 mg/dL (83-110); Potassium 4.1 mmol/L (3.5-5.1); Sodium 137 mmol/L (136-145)
[2019-09-29] MEDS: Senokot S 8.6-50 MG TAB PO SCH ×2 (09:07→20:46)
[2019-09-29] MEDS: predniSONE 5 MG TAB PO SCH (09:07)
[2019-09-29] MEDS: Carvedilol 6.25 MG TAB PO SCH ×2 (09:07→16:52)
--- NOTE | 2019-09-29 10:12 | RAD ---
PORTABLE CHEST: Date: 09/29/2019 HISTORY: Pulmonary edema. COMPARISON: 09/27/2019. FINDINGS: Cardiomegaly. The vascular congestion appears slightly improved. No focal infiltrate. The AICD leads are unchanged. IMPRESSION: Evidence of mild improvement in the vascular congestion. POS: [facility]
--- NOTE | 2019-09-29 14:06 | PDOC.HOSPP ---
- Subjective Encounter Date: 09/29/19 Encounter Time: 12:00 Subjective: The patient states has no complaints, no chest pain or palpitations. Less confused today per nurse. Pt been seen by multiple cardiologists, states he saw Dr. Alejandro at [facility] [place]. Does not specifically know what his amiodarone allergy is BP higher at 170 - Objective Vital Signs & Weight: Vital Signs (12 hours) Temp Pulse Pulse Pulse Resp BP BP 09/29/19 12:00 98.3 F 09/29/19 09:07 148/86 H 09/29/19 08:40 103 H 90 149/50 H 09/29/19 07:21 16 09/29/19 07:19 74 09/29/19 07:17 74 17 09/29/19 07:00 98.6 F 09/29/19 04:01 72 09/29/19 04:00 98.2 F BP Pulse Ox 09/29/19 12:00 94 L 09/29/19 09:07 09/29/19 08:40 116/77 09/29/19 07:21 99 09/29/19 07:19 09/29/19 07:17 99 09/29/19 07:00 09/29/19 04:01 09/29/19 04:00 Weight Admit Weight 174 lb 9.698 oz Weight 170 lb 4.8 oz Most Recent Monitor Data Heart Rate from ECG 80 NIBP 167/97 NIBP BP-Mean 120 Respiration from ECG 15 SpO2 90 I&O: 09/28/19 09/29/19 09/30/19 06:59 06:59 06:59 Intake Total 1185 493.7 456.9 Output Total 7221 2640 490 Balance -1976 -2146.3 -33.1 Result Diagrams: 09/29/19 03:32 09/29/19 03:32 Additional Labs: Accuchecks 09/29/19 09/28/19 09/28/19 11:17 21:21 16:40 POC Glucose 113 H 113 H 156 H Hospitalist ROS - Review of Systems Cardiovascular: denies: chest pain, palpitations - Medication Medications: Active Medications Generic Name Dose Route Start Last Admin Trade Name Freq PRN Reason Stop Dose Admin Albuterol/Ipratropium 3 ml 09/27/19 19:00 09/29/19 07:17 Duoneb NEB 3 ml [id number] SANNA Administration Carvedilol 6.25 mg 09/28/19 17:00 09/29/19 09:07 Coreg PO 6.25 mg BID-WM SANNA Administration Dexmedetomidine HCl 200 mcg/ 50 mls @ 0 mls/hr 09/28/19 08:45 09/28/19 10:00 Sodium Chloride IVPB 50 mls INF SANNA Administration Protocol Per Protocol Insulin Human Lispro 0 units 09/27/19 04:49 09/27/19 11:03 Humalog SC 3 unit .MILD SLIDING SCALE PRN Administration Mild Correctional Scale Lorazepam 2 mg 09/27/19 15:46 09/29/19 00:23 Ativan SLOW IVP 2 mg Q2H PRN Administration .ANXIETY Prednisone 5 mg 09/27/19 08:00 09/29/19 09:07 Prednisone PO 5 mg QAM-WM SANNA Administration Senna/Docusate Sodium 1 tab 09/27/19 21:00 09/29/19 09:07 Senokot S PO 1 tab BID SANNA Administration Sodium Chloride 10 ml 09/29/19 09:00 09/29/19 09:07 Flush - Normal Saline IVF 10 ml Q12HR SANNA Administration - Exam General Appearance: NAD, awake alert General - other findings: intermittently drowsy Eye: PERRL, anicteric sclera ENT: normocephalic atraumatic, no oropharyngeal lesions Neck: no JVD Heart: RRR, no murmur, no gallops, no rubs Respiratory: CTAB, no wheezes, no rales, no ronchi Gastrointestinal: soft, non-tender, non-distended, normal bowel sounds Hosp A/P - Plan Chest X ray 09/26: mild pulmonary edema ECHO: EF 20-25%, severe MR, severe TR 79 year old male who presented with 31 ICD firings, has history of noncompliance #Acute systolic heart failure #Severe mitral regurgitation #SEvere tricuspid regurgitation - ECHO shows EF 20-25%, severe MR and TR - 40 mg IV lasix on 09/26, 20 mg on 09/27. Repeat chest X ray shows mild pulmonary edema. Given elevated BP to 175, will administer another one time dose of 20 mg IV lasix #S/p ICD shock #Troponin elevation - now off lidocaine drip - on coreg 6.25 mg bid - will obtain outside records from [facility] [place] Acute encephalopathy - improving - will d/c precedex - urine culture showing no growth Leukocytosis - resolved. UA appears turbid, urine culture normal - Chest X ray shows right hilar density but doesn't really look like pneumonia. Will hold off on antibiotics given asymptomatic Macrocytic anemia - Hb 12.9 Folate level normal. B12 normal 07/21 DVT prophylaxis: lovenox COde status: cardiac only
[2019-09-29] MEDS ORDERED: Enoxaparin Sodium 40 MG/0.4 ML SYRINGE SC SCH (14:15)
[2019-09-29] MEDS ORDERED: Furosemide 20 MG/2 ML VIAL SLOW IVP SCH (14:15)
--- NOTE | 2019-09-29 15:41 | PRG ---
DATE OF SERVICE: 09/29/2019 SERVICE: Pulmonary Medicine. INTERVAL HISTORY: The patient is doing really well from a respiratory standpoint. Breathing comfortably. He is on BiPAP currently. He has successfully titrated off the lidocaine yesterday. He has yet to have a break off the BiPAP this morning. He is currently fairly sleepy. He got one dose of Ativan yesterday late. PHYSICAL EXAMINATION: VITAL SIGNS: Afebrile, pulse 86, blood pressure 167/97, respirations 15, saturation 94%, currently on room air. GENERAL: The patient is somnolent. HEENT: Normocephalic and atraumatic. Sclerae white. Conjunctivae pink. Oral mucosa is moist without lesions. LUNGS: Good air entry bilaterally. No crackles dependently. HEART: Normal rate, regular. ABDOMEN: Soft, nontender, and nondistended. Bowel sounds are positive. MUSCULOSKELETAL: No cyanosis or clubbing. There is no pitting in bilateral lower extremities today. NEUROLOGIC: Grossly nonfocal. LABORATORY DATA: WBC 6.9, hemoglobin 11.5, and platelets 123,000. Creatinine 1.0 and gently downtrending. Basic metabolic profile is otherwise unremarkable. Urine culture is negative to date. IMAGING STUDIES: Chest x-ray demonstrates mild improvement in the vascular congestion bilaterally. There are bilateral interstitial and alveolar opacifications, however. Echocardiogram demonstrates 20% to 25% ejection fraction with severely depressed left ventricular function and moderately enlarged RV with severe mitral regurgitation. ASSESSMENT: 1. Sustained ventricular tachycardia, resolved. 2. Acute on chronic systolic heart failure. 3. Severe mitral regurgitation. 4. Chronic kidney disease. 5. History of prostate cancer. 6. Medical noncompliance. 7. Schizophrenia. DISCUSSION AND PLAN: It will be absolutely paramount to maintain good blood pressure control in this patient. If he has high blood pressure, his cardiac output will precipitously fall secondary to this mitral regurgitation. We have witnessed this on 2 separate occasions to date. We will give him a break from the BiPAP 3 times daily and increase as tolerated. If he can go the day without additional BiPAP, he can be transitioned out of the ICU to the telemetry unit. Blood pressure medications will be titrated upward. Pulmonary will follow in this location. Job ID: [id number]
[2019-09-29 16:26] LABS: CKMB 2.4 ng/mL (0-6.6)
--- NOTE | 2019-09-29 21:06 | EKG ---
Test Reason : Blood Pressure : / mmHG Vent. Rate : 107 BPM Atrial Rate : 107 BPM P-R Int : 000 ms QRS Dur : 180 ms QT Int : 418 ms P-R-T Axes : 000 059 266 degrees QTc Int : 558 ms Suspect unspecified pacemaker failure Wide QRS rhythm with frequent ventricular-paced complexes and Premature supraventricular complexes in a pattern of bigeminy . This appears to be a biventricular device that paces both ventricles alternating with RV ventricular pacing only every ot her beat. Possible failure to capture on the" LV lead." Occasional PVC's. Non-specific intra-ventricular conduction block Abnormal ECG When compared with ECG of 04-OCT-2017 15:37, Premature supraventricular complexes are now Present Vent. rate has increased BY 18 BPM Confirmed by Sohan MASON ([id number]) on 09/29/2019 9:05:38 PM Referred By: [facility] Confirmed By:Sohan MASON
[2019-09-30] MEDS ORDERED: Melatonin 3 MG TAB PO PRN (00:16)
[2019-09-30] MEDS ORDERED: Cepastat Lozenges 1 LOZ PO PRN (04:43)
[2019-09-30] MEDS ORDERED: Acetaminophen 325 MG TAB PO PRN (04:44)
--- NOTE | 2019-09-30 07:41 | CON ---
DATE OF CONSULTATION: 09/29/2019 HISTORY OF PRESENT ILLNESS: I am seeing Mr. 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 His problems are: 1. Recurrent ICD shocks for ventricular tachycardia. 2. Hqrik-vy-wgnjwiw systolic congestive heart failure. a. History of nonischemic cardiomyopathy with 2D echo in October 2015 revealing LVEF 35%. Current echo on 09/27/2019 was noted to have LVEF of 20% to 25%, mild left atrial enlargement, severe MR and TR. b. Left heart catheterization from 09/2012 shows 40% distal LAD disease, only LVEF 30% to 35%. c. BNP of 3386 on current admit. 3. History of ventricular arrhythmias. a. History of PVC ablation in 2011. b. Admission with multiple ICD shocks. Prior history of Bi-V ICD implant in 2011 with generator change in August 2015, currently a [employer] device. 4. History of atrial arrhythmias. a. Atrial flutter and atrial tachycardia ablation versus VT ablation in 2011. Eventually, AV debra ablation performed. 5. History of noncompliance. 6. History of bipolar disorder. 7. History of CVA. 8. History of metastatic prostate cancer, previously on hospice. 9. History of COPD. 10. History of bilateral carotid stenosis. 11. Also history of multiple myeloma. ALLERGIES: TYLENOL, AMIODARONE, AMLODIPINE. MEDICATIONS: At home included: 1. Fluticasone propionate. 2. Chromium picolinate. 3. Multivitamin. 4. Carvedilol 3.125 mg twice a day. 5. [place] heller. 6. Clonidine. 7. Albuterol sulfate. 8. Apixaban. 9. Cholecalciferol. 10. Torsemide. 11. Ondansetron. 12. Zoledronic acid. SUBJECTIVE: Mr. Knowles is admitted after multiple ICD shocks. This occurred on , starting at 12:33 a.m. He does not recall any provoking factor. He did notice some lower extremity swelling. History is very difficult to obtain. He is somewhat confused and he is very poor historian. In the ER, he received magnesium and IV lidocaine was started by Dr. Fortune. No further ventricular arrhythmias recur. He was noted to be fluid overloaded and he was diuresed. This morning, the turned off. He continues to have frequent PVCs on occasion in bigeminal fashion, but no further tachycardia is noted. Currently, denies angina. He lays comfortably flat in his bed. Denies stroke-like symptoms. No neurological deficits. Rest of 12-point systems otherwise unremarkable. PAST MEDICAL HISTORY: As above. History of glaucoma as well. PAST SURGICAL HISTORY: Significant for peptic ulcer repair in 1980, questionable PCI with coronary stents, no coronary artery disease noted on prior left heart catheterization, mastoid surgery, right carotid endarterectomy, percutaneous closure of PFO, defibrillator placement, inguinal hernia repair, cardiac ablation for PVCs and atrial tachycardia versus AV debra ablation as noted above, right knee surgery followed by Staph infection, vascular procedure in right lower extremity for DVT with recent discharge on September 12. SOCIAL HISTORY: The patient is a [facility] in the past, but now lives independently and ambulates with a walker. Has a roommate. Denies smoking, EtOH, or drug abuse. FAMILY HISTORY: Significant for father at age 59 and mother of dementia at age 73. OBJECTIVE: VITAL SIGNS: Blood pressure is 155/81, heart rate is 100, respirations 17, temperature is 98.6 degrees Fahrenheit. GENERAL: This is an elderly debilitated gentleman, in no apparent distress. NECK: Supple. Jugular veins mildly distended. CHEST: Coarse without fine crackles. HEART: Sounds are regular to rate and rhythm. 2/6 holosystolic murmur is heard at the left precordial. ICD insertion site is well healed. ABDOMEN: Benign. Bowel sounds positive. EXTREMITIES: Lower extremity without clubbing or cyanosis. NEUROLOGIC: The patient is nonfocal. MUSCULOSKELETAL: Without joint swelling or deformity. SKIN: Without rash. DATABASE: Initial EKG reveals sinus rhythm, frequent PVCs, occasional base alternating with paced complexes. The interrogation of device reveals a [employer] Bi-V ICD with original implant date of August 2015. There was a generator change last done. Lead parameters seem to be adequate. Sensing 0.3 mV in the atrium and 5 mV in right ventricle. The Bi-V pacing is 76 %. Ventricular tachycardia episodes noted from September 26 at 12:33 a.m. until 1:25 a.m. with clear VA dissociation. Atrial fibrillation seems to have been persisting from October 2018 up until mid August. A transient sinus rhythm was seen , but now back in SR. Review of the episodes revealed multiple failed attempts of ATP therapy. Also, atrial fibrillation from rapid rates are seen before and after the procedures. LABORATORY DATA: White cell count on admission 11.2, hemoglobin 12.9, platelet count is 178. Currently, white cell count is 6.9, platelet count 123. Currently , sodium 137, potassium 4.1, BUN is 20, creatinine 1.0. Urine culture negative x24 hours. ASSESSMENT AND PLAN: Mr. Knowles is an 79-year-old man with history of nonischemic cardiomyopathy, recurrent atrial and ventricular arrhythmias, prior ablations including AV debra ablation with adequately functioning Bi-V ICD in place. He has had multiple ICD shocks in the setting of fluid overload, plus noncompliance with beta blockers, which he claims allergy to. He claims allergy to oral antagonist agent as well. On the other hand, he also has some mental disorder with a known noted bipolar issues. He has been under our EP care up until 2018 after which he followed up with Dr. 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 He has a history of switching providers rather frequently and also significant noncompliance was noted in the past. At this point, I agree with the current management. IV lidocaine seems to be beneficial for him. He has had no further arrhythmia, now it is weaned off. He still has frequent premature ventricular contractions, but that is likely part of his condition. I do not think that is new. He has adequate functioning Bi-V ICD with history of AV block, which seems to be persisting. Atrial fibrillation seems to be recurrent in his case. Treatment is difficult and his prognosis is limited and the questionable history of amiodarone allergy. Likely, the reports from [place] would be helpful, although by 2018, I did not have history of amiodarone toxicity on him. If he does not have true toxicity, recurrent ventricular arrhythmias could be considered to be treated with amiodarone. Alternative would be Mexitil to be tried, although has likely more negative inotropic effect. At this point, I would continue the current regimen maximizing his beta-blockers gradually. Achieve euvolemia and monitor magnesium and potassium levels as well. We will follow with you. Thank you for allowing me to participate in the care of this patient. Job ID: [id number] [facility]
[2019-09-30] MEDS: Carvedilol 6.25 MG TAB PO SCH ×2 (08:11→17:28)
[2019-09-30] MEDS: predniSONE 5 MG TAB PO SCH (08:11)
[2019-09-30] MEDS: Senokot S 8.6-50 MG TAB PO SCH ×2 (08:12→20:43)
[2019-09-30] MEDS ORDERED: Enoxaparin Sodium 40 MG/0.4 ML SYRINGE SC SCH (09:00)
--- NOTE | 2019-09-30 10:33 | PDOC.EP ---
- Subjective Date: 09/30/19 Time: 09:00 Interval History: follow up for ventricular arrhythmias and ICD management. He feels weak and run down today. - Review of Systems Constitutional: reports: weakness. denies: fever, sweats Respiratory: denies: cough, shortness of breath, wheezing Cardiology: denies: chest pain, light headedness, palpitations, passing out - Objective Allergies/Adverse Reactions: Allergies Allergy/AdvReac Type Severity Reaction Status Date / Time acetaminophen [From Tylenol] Allergy Unknown Verified 09/27/19 03:59 amiodarone Allergy Verified 09/27/19 03:59 amlodipine Allergy Verified 09/27/19 03:59 ARB-Angiotensin Receptor Allergy Verified 09/27/19 03:59 Antagonist Calcium Channel Blocking Allergy Verified 09/27/19 03:59 Agent Dilt levofloxacin [From Levaquin] Allergy Verified 09/27/19 03:59 meperidine HCl [From Demerol] Allergy N/V Verified 09/27/19 03:59 valsartan [From Diovan] Allergy Verified 09/27/19 03:59 BETA BLOCKERS Allergy Uncoded 09/27/19 03:59 Current Medications Acetaminophen (Tylenol) 650 mg PO Q6H PRN PRN Reason: Headache/Fever or Pain Albuterol/Ipratropium (Duoneb) 3 ml NEB [id number] [facility] Last Admin: 09/30/19 07:05 Dose: Not Given Carvedilol (Coreg) 12.5 mg PO BID-WM [facility] Last Admin: 09/30/19 08:11 Dose: 12.5 mg Dextrose/Water (Dextrose 50%) 25 gm SLOW IVP PRN PRN PRN Reason: Hypoglycemia Enoxaparin Sodium (Lovenox) 40 mg SC 0900 [facility] Last Admin: 09/30/19 08:12 Dose: Not Given Glucagon (Glucagon) 1 mg IM PRN PRN PRN Reason: Hypoglycemia Dextrose/Water (D5w) 1,000 mls @ 0 mls/hr IV .Q0M PRN PRN Reason: Hypoglycemia Insulin Human Lispro (Humalog) 0 units SC .MILD SLIDING SCALE PRN PRN Reason: Mild Correctional Scale Last Admin: 09/27/19 11:03 Dose: 3 unit Labetalol HCl (Normodyne) 20 mg SLOW IVP Q15MIN PRN PRN Reason: SBP Greater Than 170 Lorazepam (Ativan) 2 mg SLOW IVP Q2H PRN PRN Reason: .ANXIETY Last Admin: 09/29/19 00:23 Dose: 2 mg Melatonin (Melatonin) 6 mg PO HSPRN PRN PRN Reason: Insomnia Last Admin: 09/30/19 01:10 Dose: 6 mg Prednisone (Prednisone) 5 mg PO QAM-WM [facility] Last Admin: 09/30/19 08:11 Dose: 5 mg Senna/Docusate Sodium (Senokot S) 1 tab PO BID [facility] Last Admin: 09/30/19 08:12 Dose: Not Given Sodium Chloride (Flush - Normal Saline) 10 ml IVF Q12HR [facility] Last Admin: 09/30/19 08:12 Dose: 10 ml Sodium Chloride (Flush - Normal Saline) 10 ml IVF PRN PRN PRN Reason: Saline Flush Throat Lozenges (Cepastat Lozenges) 1 william PO Q1H PRN PRN Reason: Cough Last Admin: 09/30/19 05:24 Dose: 1 william Vital Signs & Weight: Vital Signs Temp Pulse Resp BP Pulse Ox 09/30/19 08:06 97.6 F 80 18 121/68 97 09/30/19 07:06 92 L 09/30/19 03:18 97.9 F 67 16 123/72 92 L 09/29/19 23:27 90 16 95 Admit Weight 174 lb 9.698 oz Weight 157 lb 14.4 oz I/O: I/O 09/29/19 09/30/19 10/01/19 06:59 06:59 06:59 Intake Total 493.7 1406.9 Output Total 2640 3220 Balance -2146.3 -1813.1 - Quality Measures Condition: Atrial Fibrillation/Flutter (hx or current) - Medication Contraindications No Anticoagulant reason: Refusal of treatment by patient - Physical Exam General: no apparent distress, other (baseline mental status. some delusions with ICD shock "going to his phone" this AM) Neck: midline trachea, no JVD/HJR, no lymphadenopathy Cardiology: regular rate and rhythm, no murmur, lateral displaced. negative: S1 /S2 Lungs: bibasilar rales. negative: wheezes, scattered rhonchi Neurology: cranial nerve 2-12 intact, sensory function intact, no lateralizing findings - Labs Result Diagrams: 09/29/19 03:32 09/29/19 03:32 - EKG Interpretation EKG Method: Telemetry EKG shows: Sinus rhythm (1 NSVT (<3 sec) overnight) - Assessment/Plan Assessment/Plan: 1. Ventricular tachycardia - previously on lidocaine gtt this admission 2. A/C Congestive heart failure - per cardiology 3. BiV ICD - [employer] k[employer]berly 4. Persistent atrial fibrillation - currently in SR - previously refractory to tikosyn and did not tolerate sotalol or amiodarone. 5. Complete heart block -s/p AV node ablation 6. Medical Noncomplaince 7. Mental health illness -hs of bipolar by my office records Patient reports vision changes with prior amiodarone therapy, no records available to support this and with his mental health issues his PMHx is everchanging. He was previously known to our group from [id number]. We have no documentation detailing any prior reaction to amidarone. Either way, I suspect his VT issues are related to medication non compliance with his betablocker therapy in conjunction with significant fluid overload. Optimizing his beta rajiv therapy and HF management is ongoing. I discussed this with the patient but have concerns for his understanding of these issues. He would likely benefit from amiodarone to suppress his VT and AF (seen previously on ICD check) as he is unwilling to take OAC. There are some safety concerns with him on OAC with his MHD and noncomplaince. If VT recurs despite better control of his HF and BB therapy, Mexilitine could be an option. In the past 24 hours the longest NSVT run was 11 beats, less than 3 seconds. Will continur to follow.
--- NOTE | 2019-09-30 12:22 | PDOC.HOSPP ---
- Subjective Encounter Date: 09/30/19 Encounter Time: 09:00 Subjective: CC: palpitations The patient states he had some palpitations while sitting up today. He is refusing DVT prophylaxis per nurse and is requesting eliquis. Patient reports feeling nauseous today when eating. Per patient he gets phlebitis with amiodarone and vision problems. [facility] pending [facility] and [facility] Patient also gives history of lung cancer, prostate cancer, multiple myeloma . Also reports history of a DVT in the right leg - Objective Vital Signs & Weight: Vital Signs (12 hours) Temp Pulse Resp BP Pulse Ox 09/30/19 11:05 99.3 F 78 15 105/64 94 L 09/30/19 08:06 97.6 F 80 18 121/68 97 09/30/19 07:06 92 L 09/30/19 03:18 97.9 F 67 16 123/72 92 L Weight Admit Weight 174 lb 9.698 oz Weight 157 lb 14.4 oz Most Recent Monitor Data Heart Rate from ECG 88 NIBP 132/69 NIBP BP-Mean 90 Respiration from ECG 27 SpO2 97 I&O: 09/29/19 09/30/19 10/01/19 06:59 06:59 06:59 Intake Total 493.7 1406.9 Output Total 2640 3220 Balance -2146.3 -1813.1 Result Diagrams: 09/29/19 03:32 09/29/19 03:32 Additional Labs: Accuchecks 09/30/19 09/30/19 09/29/19 10:54 05:36 20:23 POC Glucose 150 H 109 115 H 09/29/19 17:01 POC Glucose 110 Hospitalist ROS - Review of Systems Constitutional: denies: fever, chills - Medication Medications: Active Medications Generic Name Dose Route Start Last Admin Trade Name Freq PRN Reason Stop Dose Admin Albuterol/Ipratropium 3 ml 09/27/19 19:00 09/30/19 07:05 Duoneb NEB Not Given [id number] SANNA Carvedilol 12.5 mg 09/29/19 17:00 09/30/19 08:11 Coreg PO 12.5 mg BID-WM SANNA Administration Enoxaparin Sodium 40 mg 09/30/19 09:00 09/30/19 08:12 Lovenox SC Not Given 0900 [facility] Insulin Human Lispro 0 units 09/27/19 04:49 09/27/19 11:03 Humalog SC 3 unit .MILD SLIDING SCALE PRN Administration Mild Correctional Scale Lorazepam 2 mg 09/27/19 15:46 09/29/19 00:23 Ativan SLOW IVP 2 mg Q2H PRN Administration .ANXIETY Melatonin 6 mg 09/30/19 00:16 09/30/19 01:10 Melatonin PO 6 mg HSPRN PRN Administration Insomnia Prednisone 5 mg 09/27/19 08:00 09/30/19 08:11 Prednisone PO 5 mg QAM-WM SANNA Administration Senna/Docusate Sodium 1 tab 09/27/19 21:00 09/30/19 08:12 Senokot S PO Not Given BID SANNA Sodium Chloride 10 ml 09/29/19 09:00 09/30/19 08:12 Flush - Normal Saline IVF 10 ml Q12HR SANNA Administration Throat Lozenges 1 william 09/30/19 04:43 09/30/19 05:24 Cepastat Lozenges PO 1 william Q1H PRN Administration Cough - Exam General Appearance: NAD, awake alert Eye: PERRL, anicteric sclera ENT: normocephalic atraumatic, no oropharyngeal lesions Neck: no JVD Heart: RRR, no murmur, no gallops, no rubs Respiratory: CTAB, no wheezes, no rales, no ronchi Gastrointestinal: soft, non-tender, non-distended, normal bowel sounds Extremities: no cyanosis, no clubbing, no edema Skin: normal turgor, no lesions, no rashes Neurological: cranial nerve grossly intact, normal sensation to touch, no focal deficits, no new deficit Musculoskeletal: normal tone, normal strength, no muscle wasting Hosp A/P - Plan Chest X ray 09/26: mild pulmonary edema ECHO: EF 20-25%, severe MR, severe TR 79 year old male who presented with 31 ICD firings, has history of noncompliance with beta-rajiv at home. #Acute systolic heart failure #Severe mitral regurgitation #SEvere tricuspid regurgitation - ECHO shows EF 20-25%, severe MR and TR - 40 mg IV lasix on 09/26, 20 mg on 09/27. Repeat chest X ray showed mild pulmonary edema, given 20 mg IV lasix 09/28 - will hold additional lasix for now #S/p ICD shock #Troponin elevation #Vtach s/p biventricular ICD #Persistent atrial fibrillation #Complete heart block s/p AV node ablation - now off lidocaine drip - on coreg 12.5 mg bid. Will check orthostatics - cardiology records pending from [facility] - patient reports allergy to amiodarone in the past History of RLE DVT - will check ultrasound to see if its resolved Acute encephalopathy - resolved Leukocytosis - resolved. UA appears turbid, urine culture normal - Chest X ray shows right hilar density but doesn't really look like pneumonia. Will hold off on antibiotics given asymptomatic Macrocytic anemia - Hb 12.9 Folate level normal. B12 normal 07/21 #History of Lung Cancer #Multiple Myeloma #Prostate Cancer - will try to obtain oncology records DVT prophylaxis: lovenox COde status: cardiac only
--- NOTE | 2019-09-30 13:46 | ULT ---
EXAM: Right lower extremity venous Doppler PROVIDED CLINICAL HISTORY: History of DVT FINDINGS: Grayscale and color Doppler sonography with spectral analysis was performed of the right common femor al, femoral, popliteal, posterior tibial, greater saphenous and profunda femoral veins. There is luminal echogenicity and noncompressibility involving the right popliteal and posterior tibial veins, with flow documented. The evaluated venous structures demonstrate an otherwise normal sonographic appearance. IMPRESSION: Nonocclusive thrombus within right popliteal and posterior tibial veins. This finding was communicate d by the operating room technologist to the patient's nurse.
--- NOTE | 2019-09-30 13:50 | PQF ---
CLINICAL DOCUMENTATION IMPROVEMENT CLARIFICATION FORM: ICD-10 Updated PLEASE DO AN ADDENDUM TO THE PROGRESS NOTE WITH ANY DOCUMENTATION UPDATES OR ADDITIONS AND CARRY THROUGH TO DC SUMMARY. THANK YOU. DATE: 09/30/2019 ATTN: Dr. Delong Please exercise your independent, professional judgment in responding to the clarification form. Clinical indicators are provided on the bottom of this form for your review Please check appropriate box(s): [ ] Encephalopathy: Etiology: [ X ] Metabolic [ ] Toxic [ X ] Drug induced: [ ] Hypertensive [ ] Unspecified [ ] in the setting of underlying dementia [ ] Other (please specify) [ ] Other diagnosis [ ] Unable to determine In addition, please specify: Present on Admission (POA): [ ] Yes [ X ] No [ ] Unable to determine For continuity of documentation, please document condition throughout progress notes and discharge summary. Thank You. CLINICAL INDICATORS - SIGNS / SYMPTOMS / LABS / RESULTS AND LOCATION IN EMR 09/27 ([facility]) Exam: General: intermittently drowsy 09/28 ([facility]) Acute encephalopathy -improving -will d/c precedex -urine culture showing no growth 09/28 ([facility]) He is currently fairly sleepy. He got one dose of Ativan yesterday late. PE: General: The pt is somnolent 09/29 ([facility]) Acute encephalopathy - resolved. RISKS: H&P 09/26: 79 yo with hx of CAD, ischemic cardiomyopathy. Hx of V-tach and has a defibrillator. Hx prior CVA. COPD. HTN, Bipolar disorder. TREATMENT: Order 09/27- 09/28: Precedex 200 mcg IV. 09/28 ([facility]) -will d/c precedex Thank you, Gina (This form is maintained as a part of the permanent medical record) 2014 [employer]. All Rights Reserved Gina Fuentes RN, BSN [email or web address] [place] [facility]
[2019-09-30] MEDS: Apixaban 5 MG TAB PO SCH (20:43)
[2019-10-01 05:02] LABS: Hemoglobin 13.5 g/dL (14.0-18.0); Platelet Count 147 thou/uL (130-400)
[2019-10-01] MEDS: predniSONE 5 MG TAB PO SCH (08:12)
[2019-10-01] MEDS: Apixaban 5 MG TAB PO SCH ×2 (08:12→20:48)
[2019-10-01] MEDS: Carvedilol 6.25 MG TAB PO SCH ×2 (08:12→16:24)
[2019-10-01] MEDS: Senokot S 8.6-50 MG TAB PO SCH ×2 (08:12→20:48)
[2019-10-01 09:13] LABS: Platelet Count 160 thou/uL (130-400)
--- NOTE | 2019-10-01 10:52 | PDOC.EP ---
- Subjective Date: 10/01/19 Time: 10:50 Interval History: Follow up for management of ventricular tachycardia and ICD. + productive cough/clear sputum, weakness, "chest thump" -heart racing, fever, stroke like symptoms, worsening SOB, orthopnea, ICD shock - Objective Allergies/Adverse Reactions: Allergies Allergy/AdvReac Type Severity Reaction Status Date / Time acetaminophen [From Tylenol] Allergy Unknown Verified 09/27/19 03:59 amiodarone Allergy Verified 09/27/19 03:59 amlodipine Allergy Verified 09/27/19 03:59 ARB-Angiotensin Receptor Allergy Verified 09/27/19 03:59 Antagonist Calcium Channel Blocking Allergy Verified 09/27/19 03:59 Agent Dilt levofloxacin [From Levaquin] Allergy Verified 09/27/19 03:59 meperidine HCl [From Demerol] Allergy N/V Verified 09/27/19 03:59 valsartan [From Diovan] Allergy Verified 09/27/19 03:59 BETA BLOCKERS Allergy Uncoded 09/27/19 03:59 Current Medications Albuterol/Ipratropium (Duoneb) 3 ml NEB [id number] [facility] Last Admin: 10/01/19 07:25 Dose: Not Given Apixaban (Eliquis) 5 mg PO BID [facility] Last Admin: 10/01/19 08:12 Dose: 5 mg Carvedilol (Coreg) 12.5 mg PO BID-[facility] Last Admin: 10/01/19 08:12 Dose: 12.5 mg Dextrose/Water (Dextrose 50%) 25 gm SLOW IVP PRN PRN PRN Reason: Hypoglycemia Glucagon (Glucagon) 1 mg IM PRN PRN PRN Reason: Hypoglycemia Dextrose/Water (D5w) 1,000 mls @ 0 mls/hr IV .Q0M PRN PRN Reason: Hypoglycemia Insulin Human Lispro (Humalog) 0 units SC .MILD SLIDING SCALE PRN PRN Reason: Mild Correctional Scale Last Admin: 09/27/19 11:03 Dose: 3 unit Labetalol HCl (Normodyne) 20 mg SLOW IVP Q15MIN PRN PRN Reason: SBP Greater Than 170 Lorazepam (Ativan) 2 mg SLOW IVP Q2H PRN PRN Reason: .ANXIETY Last Admin: 09/29/19 00:23 Dose: 2 mg Melatonin (Melatonin) 6 mg PO HSPRN PRN PRN Reason: Insomnia Last Admin: 09/30/19 01:10 Dose: 6 mg Mexiletine HCl (Mexiletine Hcl) 150 mg PO Q8HR [facility] Prednisone (Prednisone) 5 mg PO QAM-WM [facility] Last Admin: 10/01/19 08:12 Dose: 5 mg Senna/Docusate Sodium (Senokot S) 1 tab PO BID [facility] Last Admin: 10/01/19 08:12 Dose: 1 tab Sodium Chloride (Flush - Normal Saline) 10 ml IVF Q12HR SANNA Last Admin: 10/01/19 08:12 Dose: 10 ml Sodium Chloride (Flush - Normal Saline) 10 ml IVF PRN PRN PRN Reason: Saline Flush Throat Lozenges (Cepastat Lozenges) 1 william PO Q1H PRN PRN Reason: Cough Last Admin: 09/30/19 05:24 Dose: 1 william Vital Signs & Weight: Vital Signs Temp Pulse Resp BP BP Pulse Ox 10/01/19 08:12 149/88 H 10/01/19 07:30 98.6 F 80 18 149/88 H 96 10/01/19 03:24 98.1 F 82 18 136/87 95 Admit Weight 174 lb 9.698 oz Weight 159 lb 12.8 oz I/O: I/O 09/30/19 10/01/19 10/02/19 06:59 06:59 06:59 Intake Total 1406.9 1280 Output Total 3220 640 Balance -1813.1 640 - Quality Measures Condition: Atrial Fibrillation/Flutter (hx or current) - Medication Contraindications No Anticoagulant reason: Refusal of treatment by patient - Physical Exam General: appears well, no apparent distress, affect appropriate HEENT: mucus membranes moist, normocephaly, pallor. negative: oral lesions Neck: supple neck, midline trachea, no JVD/HJR, no lymphadenopathy Cardiology: regular rate and rhythm, no murmur Lungs: no wheezes, no rhonchi, bibasilar rales Neurology: cranial nerve 2-12 intact, sensory function intact, no lateralizing findings Abdomen: unremarkable, active bowel sounds, HJR negative Extremities: dry Skin: device site stable w/o swelling - Labs Result Diagrams: 10/01/19 09:05 10/01/19 09:05 - EKG Interpretation EKG Method: Telemetry EKG shows: Sinus rhythm - Assessment/Plan Assessment/Plan: 1. Ventricular tachycardia - previously on lidocaine gtt this admission 2. A/C Congestive heart failure - per cardiology 3. BiV ICD - [facility] 4. Persistent atrial fibrillation, seen on ICD report - currently in SR - previously refractory to tikosyn and did not tolerate sotalol or amiodarone. 5. Complete heart block -s/p AV node ablation 6. Medical Noncomplaince 7. Mental health illness -hs of bipolar by my office records 8. Hypertension Continues to have NSVT runs despite reinitiation of coreg. Continue to optimize coreg as tolerated. Starting Mexilitine 150mg TID for VT suppression. Patient is agreeable to try this medication. It is a negative inotrop so I am hoping low dose will be adequate for suppression to prevent any provocation of his heart failure. Will continue to monitor.
--- NOTE | 2019-10-01 11:32 | PDOC.HOSPP ---
- Subjective Encounter Date: 10/01/19 Encounter Time: 11:29 Subjective: the patient denies palpitations today. He states he had a dry cough since yesterday and today brought up some phlegm. He would like a sputum culture. HE denies shortness of breath or chest pain. Per EP, starting mexelitine today Pt found to have DVT right leg. He reports compliance with eliquis for the past one year - Objective Vital Signs & Weight: Vital Signs (12 hours) Temp Pulse Resp BP BP Pulse Ox 10/01/19 08:12 149/88 H 10/01/19 07:30 98.6 F 80 18 149/88 H 96 10/01/19 03:24 98.1 F 82 18 136/87 95 Weight Admit Weight 174 lb 9.698 oz Weight 159 lb 12.8 oz Most Recent Monitor Data Heart Rate from ECG 88 NIBP 132/69 NIBP BP-Mean 90 Respiration from ECG 27 SpO2 97 I&O: 09/30/19 10/01/19 10/02/19 06:59 06:59 06:59 Intake Total 1406.9 1280 Output Total 3220 640 Balance -1813.1 640 Result Diagrams: 10/01/19 09:05 10/01/19 09:05 Additional Labs: Accuchecks 10/01/19 09/30/19 09/30/19 05:41 20:48 16:33 POC Glucose 131 H 186 H 180 H Hospitalist ROS - Review of Systems Constitutional: denies: fever, chills - Medication Medications: Active Medications Generic Name Dose Route Start Last Admin Trade Name Freq PRN Reason Stop Dose Admin Albuterol/Ipratropium 3 ml 09/27/19 19:00 10/01/19 07:25 Duoneb NEB Not Given [id number] SANNA Apixaban 5 mg 09/30/19 21:00 10/01/19 08:12 Eliquis PO 5 mg BID SANNA Administration Carvedilol 12.5 mg 09/29/19 17:00 10/01/19 08:12 Coreg PO 12.5 mg BID-WM SANNA Administration Insulin Human Lispro 0 units 09/27/19 04:49 09/27/19 11:03 Humalog SC 3 unit .MILD SLIDING SCALE PRN Administration Mild Correctional Scale Lorazepam 2 mg 09/27/19 15:46 09/29/19 00:23 Ativan SLOW IVP 2 mg Q2H PRN Administration .ANXIETY Melatonin 6 mg 09/30/19 00:16 09/30/19 01:10 Melatonin PO 6 mg HSPRN PRN Administration Insomnia Prednisone 5 mg 09/27/19 08:00 10/01/19 08:12 Prednisone PO 5 mg QAM-WM SANNA Administration Senna/Docusate Sodium 1 tab 09/27/19 21:00 10/01/19 08:12 Senokot S PO 1 tab BID SANNA Administration Sodium Chloride 10 ml 09/29/19 09:00 10/01/19 08:12 Flush - Normal Saline IVF 10 ml Q12HR SANNA Administration Throat Lozenges 1 william 09/30/19 04:43 09/30/19 05:24 Cepastat Lozenges PO 1 william Q1H PRN Administration Cough - Exam General Appearance: NAD, awake alert Eye: PERRL, anicteric sclera ENT: normocephalic atraumatic, no oropharyngeal lesions Neck: no JVD Heart: RRR, no murmur, no rubs. negative: no gallops Respiratory: CTAB, no wheezes, no rales, no ronchi Gastrointestinal: soft, non-tender, non-distended, normal bowel sounds Extremities: no cyanosis, no clubbing, no edema Skin: normal turgor, no lesions, no rashes Neurological: cranial nerve grossly intact, normal sensation to touch, no focal deficits, no new deficit Musculoskeletal: normal tone, normal strength, no muscle wasting Hosp A/P - Plan Chest X ray 09/26: mild pulmonary edema ECHO: EF 20-25%, severe MR, severe TR 79 year old male who presented with 31 ICD firings, has history of noncompliance with beta-rajiv at home. #Acute systolic heart failure #Severe mitral regurgitation #SEvere tricuspid regurgitation - ECHO shows EF 20-25%, severe MR and TR - 40 mg IV lasix on 09/26, 20 mg on 09/27. Repeat chest X ray showed mild pulmonary edema, given 20 mg IV lasix 09/28 - will repeat chest X ray today #Cough - send sputum culture - repeat X ray to re-eval pulmonary edema #S/p ICD shock #Troponin elevation #Vtach s/p biventricular ICD #Persistent atrial fibrillation #Complete heart block s/p AV node ablation - now off lidocaine drip - on coreg 12.5 mg bid. Orthostatics negative - will review records from [facility] History of RLE DVT -US shows nonocclusive thrombus in right leg - resume eliquis 5 mg bid Acute encephalopathy - resolved Leukocytosis - resolved. UA appears turbid, urine culture normal - Chest X ray shows right hilar density but doesn't really look like pneumonia. Will hold off on antibiotics given asymptomatic Macrocytic anemia - Hb 12.9 Folate level normal. B12 normal 07/21 #History of Lung Cancer #Multiple Myeloma #Prostate Cancer -obtain oncology records DVT prophylaxis: eliquis COde status: cardiac only
[2019-10-01 12:14] LABS: Anion Gap 10 mmol/L (10-20); BUN (Urea Nitrogen) 25 mg/dL (8.4-25.7); Calc. Creatinine Clearance 59 mL/min (70-130); Calcium 8.8 mg/dL (7.8-10.44); Carbon Dioxide 30 mmol/L (23-31); Chloride 100 mmol/L (98-107); Estimated GFR-MDRD 72; Glucose 149 mg/dL (83-110); Potassium 4.3 mmol/L (3.5-5.1); Sodium 136 mmol/L (136-145)
--- NOTE | 2019-10-01 13:49 | RAD ---
CHEST 1 VIEW PORTABLE: HISTORY: Cough. COMPARISON: 09/29/2019. FINDINGS: Minimal cardiomegaly. Bilateral vascular congestion. Left ICD. No confluent pneumonia, overt edema , or pleural effusion. IMPRESSION: Mild vascular congestion. No significant acute intrathoracic disease. Shoulder joint arthrosis. No significant change from prior study. POS: [facility]
[2019-10-01] MEDS: Mexiletine HCl 150 MG CAP PO SCH ×2 (14:40→20:51)
[2019-10-01] MEDS ORDERED: Furosemide 20 MG/2 ML VIAL SLOW IVP SCH (15:00)
[2019-10-02] MEDS: Mexiletine HCl 150 MG CAP PO SCH ×2 (04:54→15:33)
[2019-10-02] MEDS: predniSONE 5 MG TAB PO SCH (10:16)
[2019-10-02] MEDS: Apixaban 5 MG TAB PO SCH (10:17)
[2019-10-02] MEDS: Carvedilol 6.25 MG TAB PO SCH (10:17)
[2019-10-02] MEDS: Senokot S 8.6-50 MG TAB PO SCH (10:39)
[2019-10-02 14:27] VITALS: BMI 26.6
[2019-10-02 15:03] VITALS: BP 122/76; TEMP 98.6
--- NOTE | 2019-10-02 15:28 | DIS ---
DATE OF ADMISSION: 09/27/2019 DATE OF DISCHARGE: 10/02/2019 CONSULTATIONS: Pulmonary Critical Care with Dr. Elvin Smith, EP with Dr. Carroll Dunn, and Dr. Jose C Fortune with Cardiology. PROCEDURES: None. DISCHARGE DIAGNOSES: 1. Status post ICD shoc 2. Troponin elevation 3. Acute systolic heart failure 4. Acute encephalopathy 5. Leukocytosis. SECONDARY DISCHARGE DIAGNOSES: 1. Severe mitral regurgitation 2. Severe tricuspid regurgitation 3. Persistent atrial fibrillation 4. Complete heart block status post AV node ablation 5. Ventricular tachycardia status post biventricular ICD 6. Right lower extremity deep venous thrombosis 7. History of multiple myeloma, prostate cancer, lung cancer. DISCHARGE MEDICATIONS: New prescriptions: 1. Mexiletine 150 mg p.o. q.8 hours. 2. Coreg 12.5 mg p.o. b.i.d. All other home medications were resumed. BRIEF HISTORY OF PRESENT ILLNESS: This is an 79-year-old male with a past medical history of complete heart block, persistent atrial fibrillation, ventricular tachycardia, status post biventricular ICD, who presented to the hospital with 31 shocks from his ICD. The patient felt warmth in his face and then a discharge. Supposedly, he was not compliant with his beta blockers. The patient was admitted to the ICU initially. Labs revealed a white count of 11.2. Chest x-ray showed cardiomegaly with mild pulmonary vascular congestion. HOSPITAL COURSE: #ICD shock # History of commlete heart block s/p AV node ablatio n # Persistent afib # Ventricular tachycardia s/p biventricular ICD : The patient underwent interrogation of his pacemaker and was found to have over 31 ICD discharges. He was started on a lidocaine drip in the ICU. Eventually, he was discontinued from his lidocaine drip and started on Coreg. His Coreg was titrated up to 12.5 mg twice daily due to hypertension. He stated that he had a severe allergy to amiodarone and that it caused phlebitis and vision problems , but was unable to state whether he had a rash or anaphylaxis. He reports multiple allergies and has seen multiple cardiologists at [facility] and other institutions. He was started on mexiletine by Dr. Carroll Dunn from EP here and tolerated it well. He will follow up with his proposal editor in 1 week's time. Acute systolic heart failure : Chest X ray showed mild pulmonary edema. ECHO showed an EF of 20% to 25%, severe MR and TR. He was given IV diuretics on the , , , and on the . The patient did report a persistent cough on the and had a repeat chest x-ray that still showed mild pulmonary edema. His troponin was elevated at 0.153 on admission and peaked at 3.99 There was no indication for catheterization per Cardiology. He was discharged with his home torsemide and was told to take it as needed for edema or cough. He was seen by Dr. Fortune from Cardiology. He was not started on ARB or MAHI inhibitor due to possible allergy per patient. Acute encephalopathy: The patient did have some episodes of confusion when he was in the ICU. This was possibly secondary to ICU delirium. He was also on a Precedex drip for agitation as well. Eventually, his encephalopathy resolved on discharge. He did have some mild leukocytosis on admission, but his urine culture was normal and he did not have any evidence of pneumonia. Right lower extremity DVT: The patient reported a history of a DVT and being on Eliquis as an outpatient. An ultrasound showed a nonocclusive thrombus in his right leg. He was resumed on this on discharge. DISCHARGE PHYSICAL EXAMINATION: VITAL SIGNS: Temperature 97.7, heart rate 79, respiratory rate 16, O2 saturation 98% on room air, blood pressure 104/64. GENERAL: The patient is alert, awake, oriented x3. CVS: Regular rate and rhythm with no murmurs, rubs, or gallops. LUNGS: Clear to auscultation bilaterally. ABDOMEN: Positive bowel sounds, soft, nontender, nondistended. EXTREMITIES: No edema. PERTINENT LABORATORY DATA: Hemoglobin and hematocrit on 09/30: 14 and 42.4. White blood cell count on 09/26: 11.2. White blood cell count on 09/28: 6.9. BMP on 09/30: Unremarkable. LFTs on 09/26: AST 25, ALT 25, alkaline phosphatase 106. Troponin-I: 0.153, 2.229, 2.993, 3.998, 1.108 on the . Folate: 15.00. UA: Shows greater than 50 white blood cells, 11 to 20 rbc's , 500 leukocyte esterase. Urine culture on 09/27: Normal. IMAGING: Chest x-ray on 09/26: Shows cardiomegaly with patchy parenchymal density in the right hilar region. Chest x-ray on 09/26: Cardiomegaly with mild prominence of perihilar interstitial densities. Tiny right pleural effusion. Chest x-ray on 09/28: Evidence of mild improvement in the vascular congestion. Vascular ultrasound on 09/29: Nonocclusive thrombus within the right popliteal and posterior tibial veins. Chest x-ray on 09/30: Mild vascular congestion. DISCHARGE CONDITION: Stable. ACTIVITY: As tolerated. DIET: Heart healthy diet with 2 L fluid restriction. DISCHARGE INSTRUCTIONS: The patient to follow up with his EP doctor in a week or with Dr. Carroll Dunn. Follow up with his PCP in a week. Job ID: [id number] [id number]
--- NOTE | 2019-10-02 15:59 | PDOC.EP ---
- Subjective Date: 10/02/19 Time: 09:00 Interval History: follow up for VT and ICD management. Patient denies any new concerns today. Continues to have productive cough. - Review of Systems Constitutional: reports: weakness. denies: chills, fever, malaise Respiratory: reports: cough, sputum. denies: hemoptysis, shortness of breath, wheezing Cardiology: denies: chest pain, heart racing, light headedness, passing out Gastrointestinal: denies: abdominal pain, constipation, diarrhea Musculoskeletal: denies: unstable gait, falls, neck pain - Objective Allergies/Adverse Reactions: Allergies Allergy/AdvReac Type Severity Reaction Status Date / Time acetaminophen [From Tylenol] Allergy Unknown Verified 09/27/19 03:59 amiodarone Allergy Verified 09/27/19 03:59 amlodipine Allergy Verified 09/27/19 03:59 ARB-Angiotensin Receptor Allergy Verified 09/27/19 03:59 Antagonist Calcium Channel Blocking Allergy Verified 09/27/19 03:59 Agent Dilt levofloxacin [From Levaquin] Allergy Verified 09/27/19 03:59 meperidine HCl [From Demerol] Allergy N/V Verified 09/27/19 03:59 valsartan [From Diovan] Allergy Verified 09/27/19 03:59 BETA BLOCKERS Allergy Uncoded 09/27/19 03:59 Vital Signs & Weight: Vital Signs Temp Pulse Pulse Resp BP BP Pulse Ox 10/02/19 15:02 98.6 F 80 18 122/76 99 10/02/19 11:36 97.7 F 79 16 104/64 98 10/02/19 09:12 80 127/71 10/02/19 08:07 99 10/02/19 08:06 97.3 F L 80 18 145/89 H 99 Admit Weight 174 lb 9.698 oz Weight 159 lb 12.8 oz I/O: I/O 10/01/19 10/02/19 10/03/19 06:59 06:59 06:59 Intake Total 1280 1600 Output Total 640 1925 Balance 640 -325 - Medication Contraindications No Anticoagulant reason: Refusal of treatment by patient - Physical Exam General: alert & oriented x3, no apparent distress, affect appropriate HEENT: mucus membranes moist, normocephaly. negative: oral lesions Neck: supple neck, midline trachea, no lymphadenopathy Cardiology: regular rate and rhythm, no murmur, PMI nondisplaced Lungs: clear to auscultation, no wheeze, rales, rhonchi Neurology: cranial nerve 2-12 intact, sensory function intact, no lateralizing findings Skin: device site stable w/o swelling. negative: bruising, drainage, erosion - Labs Result Diagrams: 10/01/19 09:05 10/01/19 11:45 - EKG Interpretation EKG Method: Telemetry EKG shows: Sinus rhythm - Assessment/Plan Assessment/Plan: 1. Ventricular tachycardia - previously on lidocaine gtt this admission 2. A/C Congestive heart failure - per cardiology 3. BiV ICD - [facility] unify assura 4. Persistent atrial fibrillation, seen on ICD report - currently in SR - previously refractory to tikosyn and did not tolerate sotalol or amiodarone. 5. Complete heart block -s/p AV node ablation 6. Medical Noncomplaince 7. Mental health illness -hs of bipolar by my office records 8. Hypertension Continue to optimize coreg as tolerated. Started Mexilitine 150mg TID for VT suppression on 09/30. No additional NSVT seen. Will have couplet PVCs occasionally. Rhythm stable. With his heart failure, I would avoid higher doses of mexilitine which is a negative inotrop. OK for DC by EP. Addendum. I have paricipated in the exam, and formulation of the plan above. Agree with mrs Pineda. Also Pt has been discharged from our practice in the past. He follows with dr Torres at [facility] for outpt issues. Thank you. Carroll Dunn MD
== END 2019-10-02 15:51 | disposition home health service (06) | DRG 308 ==
LOC: ERS 01:20 → CCU 02:41 → ERS 03:33 → 2NO 09-29 17:56
PROVIDERS: ADMIT Internal Medicine; ATTEND Internal Medicine
PROC: 4B02XTZ Measurement of Cardiac Defibrillator, External Approach (ICD-10-PCS; principal; 2019-09-27)
PROC: 5A09457 Assistance with Respiratory Ventilation, 24-96 Consecutive Hours, Continuous Positive Airway Pressure (ICD-10-PCS; 2019-09-27)
DX: I47.2 Ventricular tachycardia (principal); I50.23 Acute on chronic systolic (congestive) heart failure; G92 Toxic encephalopathy; I13.0 Hypertensive heart and chronic kidney disease with heart failure and stage 1 through stage 4 chronic kidney disease, or unspecified chronic kidney disease; N17.9 Acute kidney failure, unspecified; C90.00 Multiple myeloma not having achieved remission; I48.19 Other persistent atrial fibrillation; J32.9 Chronic sinusitis, unspecified; H40.9 Unspecified glaucoma; I25.10 Atherosclerotic heart disease of native coronary artery without angina pectoris; E11.22 Type 2 diabetes mellitus with diabetic chronic kidney disease; I25.5 Ischemic cardiomyopathy; F31.9 Bipolar disorder, unspecified; J44.9 Chronic obstructive pulmonary disease, unspecified; N40.0 Benign prostatic hyperplasia without lower urinary tract symptoms; D72.829 Elevated white blood cell count, unspecified; D63.1 Anemia in chronic kidney disease; F20.9 Schizophrenia, unspecified; I08.1 Rheumatic disorders of both mitral and tricuspid valves; G40.909 Epilepsy, unspecified, not intractable, without status epilepticus; N18.9 Chronic kidney disease, unspecified; E78.5 Hyperlipidemia, unspecified; R79.89 Other specified abnormal findings of blood chemistry; Z95.810 Presence of automatic (implantable) cardiac defibrillator; Z86.718 Personal history of other venous thrombosis and embolism; Z79.01 Long term (current) use of anticoagulants; Z85.46 Personal history of malignant neoplasm of prostate; Z91.14 Patient's other noncompliance with medication regimen; Z95.5 Presence of coronary angioplasty implant and graft; I25.2 Old myocardial infarction; Z87.891 Personal history of nicotine dependence; Z88.8 Allergy status to other drugs, medicaments and biological substances; Z86.73 Personal history of transient ischemic attack (TIA), and cerebral infarction without residual deficits; Z88.6 Allergy status to analgesic agent; Z88.1 Allergy status to other antibiotic agents; Z79.899 Other long term (current) drug therapy; Z79.51 Long term (current) use of inhaled steroids; Z92.3 Personal history of irradiation; Z87.11 Personal history of peptic ulcer disease; Z85.118 Personal history of other malignant neoplasm of bronchus and lung
CPT/HCPCS: 36415; 36416; 71045; 80048; 80053; 81001; 82553; 82565; 82746; 82805; 83735; 83880; 84484; 85014; 85018; 85025; 85027; 85049; 87086; 93005; 93010; 93306; 93798; 94660; 96365; 96374; J1940; J2001; J2060; J3475; J7050; J7512; J7620

== ENCOUNTER 2019-12-05 12:01 | Inpatient (IN) | payer MEDICARE, OTHER ==
[2019-12-05 12:34] LABS: #Eosinphils 0.1 thou/uL (0.0-0.7); #Lymphocytes 1.5 thou/uL (1.20-3.40); #Monocytes 0.9 thou/uL (0.11-0.59); #Neutrophils 5.7 thou/uL (1.40-6.50); %Basophils 0.1 % (0.0-1.0); %Eosinophils 1.1 % (0.0-10.0); %Lymphocytes 17.8 % (21.0-51.0); %Monocytes 10.8 % (0.0-10.0); %Neutrophils 70.2 % (42.0-75.0); Hemoglobin 11.8 g/dL (14.0-18.0); Mean Corpuscular HGB CONC 32.9 g/dL (32.0-36.0); Mean Corpuscular Hemoglobin 32.5 pg (27.0-31.0); Mean Corpuscular Volume 98.8 fL (78.0-98.0); Mean Platelet Volume 8.8 fL (7.4-10.4); Platelet Count 101 thou/uL (130-400); RBC Distribution Width 14.8 % (11.5-14.5); Red Blood Cell (RBC) Count 3.63 mill/uL (4.70-6.10); White Blood Cell (WBC) Count 8.2 thou/uL (4.8-10.8)
--- NOTE | 2019-12-05 12:41 | RAD ---
PORTABLE CHEST 1 VIEW: Date: 12/05/2019 Time: 1200 hours HISTORY: Syncope. COMPARISON: 10/01/2019. FINDINGS: The heart size is prominent, but stable. The aorta is tortuous. Left-sided AICD remains in place. No lobar consolidation, pneumothoraces, margareth pulmonary edema, or large effusions are seen. There are de generative changes in the left shoulder joint. IMPRESSION: No acute process. POS: [facility]
[2019-12-05 12:48] LABS: ALT (SGPT) 21 U/L (8-55); AST (SGOT) 32 U/L (5-34); Albumin 3.5 g/dL (3.4-4.8); Alkaline Phosphatase 121 U/L (40-110); Anion Gap 10 mmol/L (10-20); BUN (Urea Nitrogen) 33 mg/dL (8.4-25.7); Bilirubin, Total 0.7 mg/dL (0.2-1.2); Calc. Creatinine Clearance 0 mL/min (70-130); Calcium 8.2 mg/dL (7.8-10.44); Carbon Dioxide 29 mmol/L (23-31); Chloride 98 mmol/L (98-107); Estimated GFR-MDRD 57; Globulin 2.5 g/dL (2.4-3.5); Glucose 150 mg/dL (83-110); Potassium 4.1 mmol/L (3.5-5.1); Sodium 133 mmol/L (136-145)
[2019-12-05 13:05] LABS: CKMB 3.8 ng/mL (0-6.6)
--- NOTE | 2019-12-05 14:01 | CT ---
CT HEAD WITHOUT IV CONTRAST COMPARISON: 04/27/2015 HISTORY: Not feeling well. Patient states may have passed out. TECHNIQUE: Axial CT imaging at 5 mm intervals from vertex through skull base without contrast FINDINGS: Cerebral and cerebellar volume loss is again seen. Low-density focus is seen in the right cerebellar hemisphere likely due to a small remote infarction. There is no evidence of an acute infarction, hemorrhage, mass effect, or midline shift. Ventricular system is normal in size, shape, and position for the degree of sulcal atrophy. Visualized paranasal sinuses are clear. There are multiple sclerotic lesions seen scattered within the calvarium involving the bifrontal bone s as well as biparietal and occipital bones with a subcentimeter sclerotic lesion seen in the right aspect of the colitis worrisome for metastatic disease especially given patient's history of prostate cancer. Large sclerotic lesion is seen near the vertex on the left measuring 1.2 cm. Sclerotic lesions were not visualized on a prior study in 2014. IMPRESSION: 1. 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 Bone scan is recommended for further evaluation. 2. No acute intracranial abnormalities demonstrated. 3. Cerebral and cerebellar volume loss.
[2019-12-05 15:47] LABS: Bacteria/HPF None Seen HPF (None Seen); Bilirubin Negative (Negative); Blood, Urine Trace (Negative); Clarity Clear (Clear); Glucose, Urine (Dipstick) Normal (Negative); Leukocyte 500 Leu/uL (Negative); Nitrite Negative (Negative); Protein, Urine (Dipstick) 30 mg/dL (Neg-Trace); Squamous Epithelial None Seen HPF (0-3); Urobilinogen Normal mg/dL (Less than 2); WBC/HPF Greater than 50 HPF (0-3)
[2019-12-05 15:50] LABS: Troponin I 0.087 ng/mL (< 0.028)
[2019-12-05] MEDS ORDERED: Senokot S 8.6-50 MG TAB PO PRN (17:19)
[2019-12-05] MEDS ORDERED: Calcium Carbonate 500 MG ChewTAB PO PRN (17:19)
[2019-12-05] MEDS ORDERED: Guaifenesin DM 100-10/5 ML UDCUP PO PRN (17:28)
[2019-12-05] MEDS ORDERED: cefTRIAXone\\ROCEPHIN 1 GM VIAL ONE (17:32)
[2019-12-05] MEDS ORDERED: Aspirin 325 mg Enteric Coated Tablet PO SCH (17:45)
--- NOTE | 2019-12-05 20:01 | HP ---
PRIMARY CARE PHYSICIAN: Unknown. CHIEF COMPLAINT: Multiple falls, general weakness. 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 The patient reports over the last several days he has felt generally weak. He reports that he fell twice today, unwitnessed and three near falls, in which he had to grab furniture to prevent himself from falling. He reports that his right knee gives out and "Just does not support me anymore ". He denies any chest pain or heart palpitations. He denies any dizziness or lightheadedness. He does report some urinary tract symptoms including painful urination, frequency, and urgency over the past 1 to 2 weeks. He denies any recent fever or chills. He denies any abdominal pain, nausea, vomiting, or diarrhea. After falling, he called the [employer], which is a transportation company that is responsible for getting him from his home to other places in town. They called police and the police called EMS. When EMS arrived, the patient was alert, oriented, and able to follow commands. He was able to ambulate to grab his wallet prior to leaving for the hospital. He was in no acute distress per EMS. In the ER, EKG was done, it was a paced rhythm. Vital signs were stable. The patient was afebrile. His pulse was stable, and he was 96% on room air. Initial troponin was 0.102, second troponin was 0.087, CK-MB was 3.8. CT of the brain was negative for any acute process. Chest x- ray was negative for any acute process. Urine did show leukocyte esterase 500 and wbc' s 21 to 50. The patient also had a BUN of 33 and a creatinine of 1.22 with a GFR of 57 and have blood sugar of 150. He was given 1 L of normal saline. ALLERGIES: 1. TYLENOL. 2. ALPHA 2 ADRENERGIC AGONIST. 3. AMIODARONE. 4. AMLODIPINE. 5. BETA BLOCKERS. 6. CALCIUM CHANNEL BLOCKERS. 7. DEMEROL. 8. DIOVAN. 9. LEVAQUIN. CURRENT MEDICATIONS: Home medications, the patient was unable to verify home medications at bedside. PAST MEDICAL HISTORY: 1. CAD. 2. Paroxysmal atrial fibrillation. 3. Hypertension. 4. Multiple CVAs without deficits. 5. Severe bilateral carotid stenosis. 6. Borderline diabetes. 7. Chronic bronchitis. 8. COPD. 9. Glaucoma. 10. CKD. 11. Multiple myeloma. 12. Prostate cancer. 13. Lung cancer. 14. Nonischemic cardiomyopathy. 15. Chronic CHF with AICD. 16. Bipolar. PAST SURGICAL HISTORY: 1. Pacemaker in 2016, heart ablation. 2. Left second toe amputation. 3. Right foot surgery. 4. Hernia. 5. Tonsillectomy. 6. Adenoidectomy. 7. Left hip replaced in 2019. SOCIAL HISTORY: The patient lives at home. He has a roommate. He has home health come out at least once a week. He is a former smoker. He used to abuse marijuana, and he drinks alcohol socially. He ambulates with a walker. FAMILY HISTORY: Family history is noncontributory to this case at this time. REVIEW OF SYSTEMS: All other review of systems are negative unless otherwise noted in the HPI. PHYSICAL EXAMINATION: VITAL SIGNS: 98.7 with a temperature oral, blood pressure 132/84, heart rate 71 , respirations 18, and SpO2 is 96% on room air. CONSTITUTIONAL: The patient is lethargic. Oriented to person, place, and time. Able to follow commands. EYES: PERRLA. Extraocular muscles intact. Nonicteric sclerae. ENT: Nares are patent bilaterally. Oropharynx is clear. Uvula midline. Mucous membranes are dry. NECK: Supple. Trachea midline. No JVD. RESPIRATORY: Respirations are even and nonlabored. He diminished in the bilateral bases with rhonchi and wheezes throughout. CARDIOVASCULAR: Regular rate and rhythm, paced on the monitor. No rubs or gallops auscultated. GASTROINTESTINAL: Abdomen is soft, nontender. Active bowel sounds throughout. No guarding. No rigidity. Negative Javier sign. No abdominal bruit auscultated. EXTREMITIES: Bilateral upper extremities, no swelling. No erythema. Palpable radial pulses. Brisk cap refill. Strength is equal bilaterally. Lower extremities, bilateral extremities have 1+ edema. Palpable pedal pulses. Brisk cap refill. Full range of motion. NEURO: The patient is lethargic. He is oriented to person, place, and time. He follows commands. PSYCH: The patient has history of bipolar. He denies any suicidal or homicidal ideation. LABS AND IMAGING: EKG showed a paced rhythm. Vital signs were stable. First troponin was 0.102, second troponin 0.087, CK-MB 3.8. CTA brain was negative for any acute process. Chest x-ray was negative for any acute process. Sodium was 133, potassium 4.1, BUN 33, creatinine 1.22, glucose was 150, GFR 57, bilirubin of 0.7, alkaline phosphatase 121, AST 32, and ALT 21. WBC is 8.2, hemoglobin 11.8, hematocrit 35.9, and platelets 101. IMPRESSION AND PLAN: 1. Syncope. We will admit the patient to telemetry for observation status. Expected length of stay less than two midnights. The patient denied any chest pain during the event. EKG was a paced rhythm. Trops mildly elevated. AICD in place. Last echo was on 09/28/2019 showed 20% to 25% EF with severe left ventricular depressed function. We will trend troponins. We will check a BNP, Mag, and thyroid. We will give him aspirin. We will interrogate AICD. We will check orthostatics. We will initiate fall precautions. 2. Frequent falls 3. Urinary tract infection. Urinalysis showed leukocyte esterase and wbc's. We will send urine for culture. We will start Rocephin IV piggyback. 4. Dehydration, mild. BUN of 33, creatinine of 1.02. The patient received 1 L of IV fluid in the ER. Based on the patient's previous history of nonischemic cardiomyopathy with an AICD, we will hold IV fluids for now. The patient is able to take p.o. intake. We will recheck BMP in the a.m. 5. Hyponatremia, mild, 133. The patient received 1 L of IV fluids in the ER. We will recheck level in the a.m. 6. Borderline diabetic. The patient presented with elevated glucose of 150. We will check hemoglobin A1c. 7. Chronic congestive heart failure. The patient had an echo in August of 2019, EF showed 20% to 25% with severe depressed left ventricular function. We will check BNP and TSH. We will monitor I's and O's, and daily weights. We will cardiac home meds. 8. Chronic obstructive pulmonary disease. The patient in no acute respiratory distress. On physical exam, had some rhonchi and wheezes throughout. We will start DuoNebs p.r.n. 9. History of multiple cerebrovascular accidents with no deficits. The patient appears baseline. No focal deficits on exam. CT of the brain was negative for any acute process. The patient does have a history of severe carotid stenosis. He is not on any anticoagulation. The patient last had carotid Doppler in 2013 that showed right ICA with 50-70% stenosis; In December 2014, CTA of the head and neck, showed 75% stenosis of the right ICA and less than 25% of left ICA. He did not say he had SX endarterectomy. We will start aspirin, and consult palliative care for "goals of care". If patient amenable to interventions, then consider CTA neck to rule out worsening carotid stenosis. 10. History of multiple myeloma, prostate cancer, and lung cancer. Unsure if patient is in remission at this time. He is on prednisone 5 mg daily per his previous MAR. We will consult Palliative Care for plan. 11. No pharmaco deep vein thrombosis prophylaxis, VETO gupta bilaterally for deep vein thrombosis prophylaxis. Pepcid for gastrointestinal prophylaxis. The patient is a full code. His MPOA is his son, Jonnie Fitzpatrick with unknown number. 12. Discussed the case with Dr. Best. Job ID: [id number] [facility]
[2019-12-05] MEDS: Famotidine 20 MG TAB PO SCH (23:03)
[2019-12-05 23:10] VITALS: BMI 28.5
[2019-12-06] MEDS: cefTRIAXone\\ROCEPHIN 2 GM in Sodium Chloride 0.9% 100 ML IVPB SCH ×2 (01:16→18:09)
[2019-12-06 05:03] LABS: Hemoglobin A1c 6.4 % (4.0-6.0)
[2019-12-06 05:11] LABS: #Eosinphils 0.1 thou/uL (0.0-0.7); #Lymphocytes 1.6 thou/uL (1.20-3.40); #Monocytes 0.9 thou/uL (0.11-0.59); #Neutrophils 5.9 thou/uL (1.40-6.50); %Basophils 0.3 % (0.0-1.0); %Eosinophils 1.6 % (0.0-10.0); %Lymphocytes 18.7 % (21.0-51.0); %Monocytes 10.3 % (0.0-10.0); %Neutrophils 69.1 % (42.0-75.0); Hemoglobin 12.1 g/dL (14.0-18.0); Mean Corpuscular HGB CONC 33.2 g/dL (32.0-36.0); Mean Corpuscular Hemoglobin 33.3 pg (27.0-31.0); Mean Platelet Volume 8.6 fL (7.4-10.4); Platelet Count 105 thou/uL (130-400); RBC Distribution Width 15.1 % (11.5-14.5); Red Blood Cell (RBC) Count 3.65 mill/uL (4.70-6.10); White Blood Cell (WBC) Count 8.5 thou/uL (4.8-10.8)
[2019-12-06 05:16] LABS: Anion Gap 12 mmol/L (10-20); BUN (Urea Nitrogen) 26 mg/dL (8.4-25.7); Calc. Creatinine Clearance 60 mL/min (70-130); Calcium 7.6 mg/dL (7.8-10.44); Carbon Dioxide 27 mmol/L (23-31); Cardiac Risk 4.5 (Less than 4.5); Chloride 103 mmol/L (98-107); Cholesterol 135 mg/dl (< 200 Desired); Estimated GFR-MDRD 66; Glucose 168 mg/dL (83-110); HDL Cholesterol 30 mg/dL (>60 Neg Risk); LDL Cholesterol, Calculated 84 mg/dL; Sodium 138 mmol/L (136-145); Triglycerides 103 mg/dL (Less than 150)
[2019-12-06] MEDS: Aspirin 81 mg Enteric Coated Tablet PO SCH (07:53)
[2019-12-06] MEDS: Famotidine 20 MG TAB PO SCH ×2 (07:53→21:23)
[2019-12-06] MEDS ORDERED: Naproxen 500 MG TAB PO SCH (10:45)
[2019-12-06] MEDS ORDERED: Iopamidol-370 76% 500 ML 1 ML ONE (10:51)
[2019-12-06] MEDS ORDERED: Sodium Chloride 0.9% 1,000 ML IV SCH (11:00)
--- NOTE | 2019-12-06 11:05 | PDOC.HOSPP ---
- Subjective Encounter Date: 12/06/19 Encounter Time: 10:59 Subjective: The patient reports feeling weak. He states he is sweating profusely. He feels more short of breath, has chronic productive cough from lung cancer. No fevers. He denies chest pain. He has been falling recurrently for the past few weeks. He denies dizziness while standing, but states his legs will just not hold him up. He reports having MRSA infection inhis right knee from years ago. Also reports a left hip replacement recently and is having some hip pain there and was wondering if that needs to be reoperated. He is aware of an old cerebellar stroke and says he has had that for years and does not think that is contributing to his falls. Pt was told of findings of metastases in his skull. He states he was not aware of this. He has not gotten chemotherapy recently because he decided not to go to Dr. Bull's office due to fears of margarito COVID. The only medications he is taking are phenytoin and coreg. HE is not taking mexiletine prescribed during his last hospital admission His last bone scan in 01/2019 shows osseous metastases in bones; patient reports he had a bone scan from Dr. Marcos's office two months ago,but he is not aware of any skull findings. - Objective Vital Signs & Weight: Vital Signs (12 hours) Temp Pulse Resp BP BP BP Pulse Ox 12/06/19 07:51 98.7 F 70 18 132/78 96 12/06/19 04:00 97.3 F L 70 20 136/79 133/74 136/74 93 L Weight Weight 171 lb 6.4 oz I&O: 12/05/19 12/06/19 12/07/19 06:59 06:59 06:59 Intake Total 360 Output Total 300 Balance 60 Result Diagrams: 12/06/19 04:42 12/06/19 04:42 Additional Labs: Accuchecks 12/06/19 09:49 POC Glucose 255 H Hospitalist ROS - Review of Systems Constitutional: denies: fever, chills - Medication Medications: Active Medications Generic Name Dose Route Start Last Admin Trade Name Freq PRN Reason Stop Dose Admin Aspirin 81 mg 12/06/19 09:00 12/06/19 07:53 Ecotrin PO 81 mg DAILY SANNA Administration Famotidine 20 mg 12/05/19 21:00 12/06/19 07:53 Pepcid PO 20 mg BID SANNA Administration Ceftriaxone Sodium 2 gm/ 100 mls @ 200 mls/hr 12/05/19 17:00 12/06/19 01:16 Sodium Chloride IVPB Not Given Q24HR SANNA - Exam General Appearance: NAD, awake alert General - other findings: appears tachypneic Eye: PERRL, anicteric sclera ENT: normocephalic atraumatic, no oropharyngeal lesions Neck: no JVD Heart: RRR, no murmur, no gallops, no rubs Respiratory: CTAB, no wheezes, no rales, no ronchi Gastrointestinal: soft, non-tender, non-distended, normal bowel sounds Extremities - other findings: can lift up both legs and arms. Refuses strength testing in legs Skin: normal turgor, no lesions, no rashes Neurological: cranial nerve grossly intact, normal sensation to touch, no focal deficits, no new deficit Hosp A/P - Plan This is 79 year old male with multiple myeloma, prostate cancer,lung cancer presenting with weakness #Generalized weakness #Recurrent Falls - orthostatics negative. ICD interrogated and showed no arrhythmias - CT brain shows multiple sclerotic lesions in the skull. Will consult oncology and order a bone scan. ChestX ray normal - obtain records from Dr. Bull's office - PT evaluation - check dilantin level #Tachypnea - will check CTA chest to rule out PE and given history of lung cancer - check troponin - no fever or leukocytosis to suggest COVID and X ray showed no pneumonia #History of systolic heart failure s/p ICD - is not compliant with mexiletine -on coreg #History of seizures - on phenytoin? Will check phenytoin level Prediabetes - A1C 6.4, will monitor Macrocytic anemia - stable. B12/folate normal 07/2019. TSH normal 12/04
[2019-12-06] MEDS ORDERED: Calcium Gluconate 4.6 MEQ in Sodium Chloride 0.9% 100 ML IVPB SCH (11:07)
--- NOTE | 2019-12-06 12:08 | CT ---
CTA CHEST WITH CONTRAST: Date: 12/06/2019 Axial tomograms obtained with multiplanar reconstruction and 3D postprocessing following a pulmonary angio protocol. INDICATION: History of lung cancer. Shortness of breath. Syncopal episodes. Comparison made to chest CT from 12/03/2018. FINDINGS: Pulmonary arteries show adequate opacification. There is no evidence of pulmonary embolus. Thoracic a edda is unremarkable. No evidence of dissection. The lungs are aerated and clear of infiltrate. No ef fusion. There is cardiomegaly and mild vascular congestion. No evidence of mediastinal adenopathy. Review of the osseous structures show numerous focal sclerotic lesions seen involving the thoracic ve rtebra, as well as the sternum and numerous ribs. Findings are consistent with diffuse osseous metast asis. IMPRESSION: 1. No evidence of pulmonary embolus. 2. Vascular congestion with evidence of mild interstitial edema. 3. No confluent infiltrate or significant effusion. 4. Evidence of diffuse osseous metastatic disease. POS: [facility]
[2019-12-06 12:11] LABS: CKMB 2.8 ng/mL (0-6.6)
[2019-12-06] MEDS ORDERED: Furosemide 20 MG/2 ML VIAL SLOW IVP SCH (14:30)
[2019-12-06] MEDS ORDERED: Torsemide 20 MG TAB PO SCH (17:30)
[2019-12-06] MEDS: Naproxen 500 MG TAB PO SCH (21:23)
[2019-12-07] MEDS: Famotidine 20 MG TAB PO SCH ×2 (08:37→21:13)
[2019-12-07] MEDS: Naproxen 500 MG TAB PO SCH ×2 (08:37→21:18)
[2019-12-07] MEDS: Aspirin 81 mg Enteric Coated Tablet PO SCH (08:37)
[2019-12-07 10:37] LABS: Anion Gap 12 mmol/L (10-20); BUN (Urea Nitrogen) 21 mg/dL (8.4-25.7); Calc. Creatinine Clearance 55 mL/min (70-130); Calcium 7.9 mg/dL (7.8-10.44); Carbon Dioxide 31 mmol/L (23-31); Chloride 97 mmol/L (98-107); Estimated GFR-MDRD 61; Glucose 181 mg/dL (83-110); Potassium 3.8 mmol/L (3.5-5.1); Sodium 136 mmol/L (136-145)
[2019-12-07 10:44] LABS: Hemoglobin 12.5 g/dL (14.0-18.0); Mean Corpuscular HGB CONC 32.4 g/dL (32.0-36.0); Mean Corpuscular Hemoglobin 32.5 pg (27.0-31.0); Mean Platelet Volume 8.9 fL (7.4-10.4); Platelet Count 90 thou/uL (130-400); RBC Distribution Width 15.1 % (11.5-14.5); Red Blood Cell (RBC) Count 3.83 mill/uL (4.70-6.10); White Blood Cell (WBC) Count 9.1 thou/uL (4.8-10.8)
--- NOTE | 2019-12-07 16:15 | PDOC.HOSPP ---
- Subjective Encounter Date: 12/07/19 Encounter Time: 11:00 Subjective: The patient feels less short of breath. He was noted to be on room air. The patient states he did not ambulate that much today. He complains of left sided hip pain . He denies dizziness today. Bone scan can 't be done today - Objective Vital Signs & Weight: Vital Signs (12 hours) Temp Pulse Resp BP Pulse Ox 12/07/19 12:00 97.8 F 72 18 124/65 96 12/07/19 07:17 97.6 F 70 20 128/69 96 Weight Weight 171 lb 6.4 oz I&O: 12/06/19 12/07/19 12/08/19 06:59 06:59 06:59 Intake Total 360 1910 Output Total 300 1710 Balance 60 200 Result Diagrams: 12/07/19 10:03 12/07/19 10:03 Hospitalist ROS - Review of Systems Constitutional: denies: fever, chills - Medication Medications: Active Medications Generic Name Dose Route Start Last Admin Trade Name Hardikq PRN Reason Stop Dose Admin Aspirin 81 mg 12/06/19 09:00 12/07/19 08:37 Ecotrin PO 81 mg DAILY SANNA Administration Famotidine 20 mg 12/05/19 21:00 12/07/19 08:37 Pepcid PO 20 mg BID SANNA Administration Naproxen 500 mg 12/06/19 21:00 12/07/19 08:37 Naprosyn PO 500 mg BID SANNA Administration Senna/Docusate Sodium 2 tab 12/05/19 17:19 12/06/19 18:10 Senokot S PO 2 tab BID PRN Administration Constipation - Exam General Appearance: NAD, awake alert Eye: PERRL, anicteric sclera ENT: normocephalic atraumatic, no oropharyngeal lesions Neck: no JVD Heart: RRR, no murmur, no gallops, no rubs Respiratory: CTAB, no wheezes, no rales, no ronchi Gastrointestinal: soft, non-tender, non-distended, normal bowel sounds Extremities: no cyanosis, no clubbing, no edema Skin: normal turgor, no lesions, no rashes Neurological: cranial nerve grossly intact, normal sensation to touch, no focal deficits, no new deficit Musculoskeletal: normal tone, normal strength, no muscle wasting Psychiatric: normal affect, normal behavior, A&O x 3 Hosp A/P - Plan This is 79 year old male with multiple myeloma, prostate cancer,lung cancer presenting with weakness #Generalized weakness #Recurrent Falls #Metastatic multiple myeloma to the brain #History of prostate cancer and lung cancer - orthostatics negative. ICD interrogated and showed no arrhythmias - CT brain shows multiple sclerotic lesions in the skull. Oncology was consulted. Bone scan ordered for tomorrow. Ben[place]/lambda studies are being ordered - patient's recurrent falls may be secondary to cancer in brain - dilantin level normal #Tachypnea- resolved - CTA chest showed no PE - troponin indeterminate. - no fever or leukocytosis to suggest COVID and X ray showed no pneumonia #History of systolic heart failure s/p ICD - is not compliant with mexiletine -on coreg #History of seizures - on phenytoin. Verify home dose Prediabetes - A1C 6.4, will monitor Macrocytic anemia - stable. B12/folate normal 07/2019. TSH normal 12/04 Disposition: bone scan pending, oncology to evaluate
[2019-12-07] MEDS ORDERED: Torsemide 20 MG TAB PO SCH (16:30)
--- NOTE | 2019-12-07 19:27 | CON ---
DATE OF CONSULTATION: 12/07/2019 HISTORY OF PRESENT ILLNESS: Mr. Knowles is an 79-year-old male, who gives his own history with very few medical records in our system, who tells me he has a history of lung cancer, prostate cancer, and smoldering multiple myeloma. He has never required chemotherapy for the lung or the prostate cancer. He did have surgery for the lung cancer and prostate cancer and for his prostate cancer, he received radiation through Dr. Marcos a few years ago. He recently has had smoldering multiple myeloma and has been followed by Dr. Bull. He states Dr. Bull did want to put him on some injections sometimes past, but they were too expensive and Mr. Knowles chose to not pay for them. Therefore, he has been on Zometa alone and presents here to our facility with weakness, global fatigue, and increased falls. He does have a history of stroke, but without any current deficits as well as congestive heart failure. He fell twice on the day of admission. These were unwitnessed, but he states that he was so weak he had to grab on the furniture to help him from falling. He states his right knee keeps giving out and does not support him. He denies any chest pain or palpitations. He denies dizziness or presyncope. He did have some painful urination as well as increased frequency over the last few weeks prior to admission. He did call EMS and when EMS arrived, he was alert and oriented, able to follow commands, but he was transported here for further workup. Today, he states he feels somewhat stronger. He is eating better. He does live alone and has no one helping him make meals or home health. PAST MEDICAL HISTORY: 1. Coronary artery disease. 2. 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 3. History of lung cancer, status post surgical resection, thought to be in remission. 4. Paroxysmal atrial fibrillation. 5. Hypertension. 6. History of multiple CVAs without deficits. 7. Bilateral carotid artery stenosis with obvious peripheral vascular disease. 8. Diabetes mellitus. 9. Chronic bronchitis with COPD. 10. Glaucoma. 11. Nonischemic cardiomyopathy with congestive heart failure and AICD placed. 12. Bipolar disorder, as far as I can tell, he is not on any medications for this. CURRENT MEDICATIONS: 1. DuoNeb p.r.n. 2. Aspirin 81 mg p.o. daily. 3. Tums 1000 mg p.o. q.4 hours p.r.n. 4. Ceftriaxone 2 g IV q.24 hours. 5. Pepcid 20 mg p.o. b.i.d. 6. Naprosyn 500 mg p.o. b.i.d. 7. Senokot 2 tablets p.o. b.i.d. ALLERGIES: TO TYLENOL, AMIODARONE, AMLODIPINE. SOCIAL HISTORY: He lives alone in [place]. Denies any current tobacco or alcohol use. FAMILY HISTORY: Negative for malignancies that contribute to his past medical history. REVIEW OF SYSTEMS: He continues to feel somewhat weak. He denies fevers, chills, night sweats, or weight loss. He denies any significant increase in bone pain. Otherwise, 10-point review of systems is negative. PHYSICAL EXAMINATION: VITAL SIGNS: Temperature 97.6, pulse 70, respirations 16 to 20, O2 saturation 96% on room air, blood pressure 128/69. GENERAL: He is alert, awake, and oriented x3. Sitting up, eating lunch, in no acute distress. HEENT: Extraocular muscles are intact. Sclerae are anicteric. NECK: Supple without lymphadenopathy. CARDIOVASCULAR: Regular rhythm with some irregularity at times, but not in atrial fibrillation currently as far as I can tell clinically. LUNGS: Clear to auscultation bilaterally. ABDOMEN: Hypoactive bowel sounds. Obese, nontender. EXTREMITIES: No edema, he does have a large ecchymoses on his left hip. LABORATORY DATA: White blood cell count 9.1, hemoglobin 12.5, platelets 90. Sodium 136, potassium 3.8, chloride 97, CO2 of 31, BUN 21, creatinine 1.1, glucose 181, and calcium 7.9. Troponin I of 0.093. Urinalysis on admission was yellow and clear with protein as well as greater than 50 wbc's and 500 urine leukocyte esterase. Urine culture did grow a Staphylococcus species, but was thought to possibly be contaminant. His total protein on admission is 6.0, albumin 3.5. CT of the brain done on admission shows sclerotic osseous metastatic lesions involving the calvarium and clivus. ASSESSMENT: Mr. Knowles is an 79-year-old male with: 1. Possible history of smoldering myeloma, I suspect this is active myeloma given the disease in his bones. 2. History of lung and prostate cancer thought to be in remission. 3. Congestive heart failure with automatic implantable cardioverter-defibrillator placement. 4. Possible history of bipolar disorder. 5. Peripheral vascular disease with history of cerebrovascular accident. PLAN: 1. Without any records on Mr. Knowles, it is difficult to discuss the diagnosis and prognosis. I suspect he needs restaging and discussion on treatment. He is interested in possibly transferring of care here. Therefore, we will re-stage with a SPEP, serum free light chains, and a CT of the bones to rule out multiple myeloma bony osseous disease. If he is going to be discharged soon, the CT will not be done as he would need a PET scan or a bone scan, but a PET scan would probably be more helpful considering his history of other malignancies. We will set this up as an outpatient assuming that he is discharged, and will follow up in our clinic. 2. Ultimately, we will need records on the lung cancer and prostate cancer, I will check a PSA. 3. We will follow peripherally and get him a followup as an outpatient. Job ID: [id number]
[2019-12-08] MEDS ORDERED: Ibuprofen 200 MG TAB PO SCH (04:30)
[2019-12-08] MEDS: Aspirin 81 mg Enteric Coated Tablet PO SCH (08:09)
[2019-12-08] MEDS: Famotidine 20 MG TAB PO SCH (08:09)
[2019-12-08] MEDS: Naproxen 500 MG TAB PO SCH (08:10)
[2019-12-08] MEDS ORDERED: Torsemide 20 MG TAB PO SCH (09:00)
[2019-12-08] MEDS ORDERED: Potassium Chloride 20 MEQ TAB PO SCH (09:30)
--- NOTE | 2019-12-08 15:09 | PDOC.MOPN ---
Interval History: Feels weak today, denies pain. - Vital Signs Vital Signs: Vital Signs (12 hours) Temp Pulse Resp BP BP Pulse Ox 12/08/19 11:59 97.1 F L 73 22 H 126/74 97 12/08/19 07:58 97.8 F 69 18 141/85 H 96 12/08/19 04:00 97.3 F L 70 18 156/80 H 94 L Weight Weight 167 lb 12.8 oz - Physical Exam General: Alert, Oriented x3, No acute distress HEENT: Atraumatic, PERRLA, EOMI, Mucous membr. moist/pink Lungs: Clear to auscultation Cardiovascular: Regular rate Abdomen: Normal bowel sounds Neurological: Normal speech - Labs Result Diagrams: 12/07/19 10:03 12/07/19 10:03 Lab results: Laboratory Results - last 24 hr 12/08/19 09:43: Magnesium 1.9 12/07/19 19:25: Phenytoin 14.2 Status: lab reviewed by me A/P - Problem (1) Prostate cancer metastatic to intraabdominal lymph node Current Visit: No Code(s): C61 - MALIGNANT NEOPLASM OF PROSTATE; C77.2 - SECONDARY AND UNSP MALIGNANT NEOPLASM OF INTRA-ABD NODES Status: Acute - Plan Plan: 1. Obtain med recs from Dr. Bull, PSA 151 2. Follow-up in office next week 3. Further scans as outpatient
[2019-12-08 15:28] VITALS: BP 138/85; TEMP 97.6
--- NOTE | 2019-12-08 16:35 | PQF ---
DATE: 12-08-19 ATTN: DR. PHIL FLYNN Please exercise your independent, professional judgment in responding to the clarification form. Clinical indicators are provided on the bottom of this form for your review Please check appropriate box(s): [ ] UTI [ X ] Contaminated urine specimen without UTI [ ] Other diagnosis [ ] Unable to determine In addition, please specify: Present on Admission (POA): [ X] Yes [ ] No [ ] Unable to determine For continuity of documentation, please document condition throughout progress notes and discharge summary. Thank You. CLINICAL INDICATORS - SIGNS / SYMPTOMS / LABS / RESULTS AND LOCATION IN MR: URINE 12-05-19: URINE PROTEIN: 30 URINE BLOOD: TRACE UR LEUKOCYTE ESTERASE: 500 URINE RBC: 4-6 URINE WBC: GREATER THAN 50 HYALINE CASTS: 4-6 RISK FACTORS / RESULTS AND LOCATION IN MR: ER NOTES 12-05-19: LABS IN ER DEMONSTRATED CONCERN FOR UTI AND PATIENT WAS TREATED WITH ANTIBIOTICS TREATMENT / RESULTS AND LOCATION IN MR: ER NOTES 12-05-19: NS IVF X 2, CEFTRIAXONE IV, (This form is maintained as a part of the permanent medical record) 2014 [employer], [employer] All Rights Reserved ABIGAIL [email or web address] Cell [facility]
--- NOTE | 2019-12-09 04:18 | DIS ---
DATE OF ADMISSION: 12/05/2019 DATE OF DISCHARGE: 12/08/2019 DISCHARGE DIAGNOSES: 1. 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 2. Recurrent falls. 3. Acute systolic heart failure. SECONDARY DISCHARGE DIAGNOSES: 1. History of seizures. 2. Prediabetes. 3. Macrocytic anemia. 4. History of prostate cancer and lung cancer. BRIEF HISTORY OF PRESENT ILLNESS: This is an 79-year-old male with a past medical history of multiple myeloma, prostate cancer, lung cancer, who presented to the emergency room with recurrent falls. The patient stated he had a left-sided hip replacement done earlier this year. He also reported MRSA infection of his right knee. The patient states that every time he gets up, his legs would not hold him up and he would just fall. The patient is wondering if his left hip needs to be replaced. The patient states that he has multiple myeloma and has not been getting any chemotherapy due to the COVID pandemic. He also was prescribed mexiletine during his last admission for ICD shock and ventricular tachycardia, but was not taking this medication. He presented to the hospital for further workup. HOSPITAL COURSE: Recurrent falls/weakness, possibly secondary to metastatic multiple myeloma to the brain: The patient had orthostatics done that were negative. His ICD was interrogated and showed no arrhythmias. He had a CT scan of his brain, which showed multiple sclerotic lesions in his skull. His CT scan also showed a remote cerebellar infarction. The patient states this is old and he does not think this old stroke is contributing to his falls. He did have an oncology consult placed since the patient was interested in transferring his care here. Serum kappa/ lambda studies and serum electrophoresis were sent, however, results are still pending at this time. Per Dr. Magallanes, the patient will follow up in the clinic in a week and they will consider doing a PET scan at that time. The patient was seen by walking program and the patient was slightly unsteady while walking, but did okay using a walker. The patient also reports taking phenytoin at home. His Dilantin levels were checked in the hospital and were normal. Tachypneic: The patient was noted to be short of breath on 12/06. He had a CTA of his chest, which ruled out a PE. He did require some IV Lasix due to some fluid accumulation after receiving IV fluids. Tachypnea resolved after resumption of his home torsemide. DISCHARGE PHYSICAL EXAMINATION: VITAL SIGNS: Temperature 97.6, heart rate 71, respiratory rate 16, O2 saturation 100% on room air, blood pressure 138/85. GENERAL: The patient is alert, awake, oriented x3. CVS: Regular rate and rhythm with no murmurs, rubs, or gallops. LUNGS: Clear to auscultation bilaterally. ABDOMEN: Positive bowel sounds, soft, nontender, nondistended. EXTREMITIES: No edema. NEUROLOGIC: The patient's cranial nerves 2 through 12 are intact. He has 5/5 strength in his upper and lower extremities. SKIN: The patient noted to have a large bruising noted on his left hip due to his fall. He has no hip tenderness. He has full range of motion of his lower extremities. LABORATORY DATA: CBC on 12/06: White count 9.1, hemoglobin 12.5, hematocrit 38.5, MCV 100, platelet count 90. BMP on 12/06: Unremarkable. Hemoglobin A1c on 12/05: 6.4. Troponin I: 0.102, 0.087, 0.090, 0.093. PSA: 151.92. Lipid content panel: LDL 84, triglyceride 103, cholesterol 135, HDL 30. UA on 12/04: Trace blood, 30 protein, 500 leukocyte esterase, 4 to 6 rbc, greater than 50 white blood cells. Phenytoin level: 19.2 on 12/05 and 14.2 on 12/06. IMAGING DATA: Chest x-ray on 12/04: No acute process. CT brain on 12/04: Sclerotic osseous metastatic lesions involving the calvarium and clivus. Bone scan recommended for further evaluation. Cerebral and cerebellar volume loss. Low-density focus infarction in the right cerebellar hemisphere. CTA chest on 12/05: No PE. Vascular congestion with mild interstitial edema. Diffuse osseous metastatic disease. DISCHARGE CONDITION: Stable. DISPOSITION: Home with home PT/home health. ACTIVITY: As tolerated. DIET: Cardiac diet with 2 L fluid restriction. DISCHARGE MEDICATIONS: All home medications were resumed. Please refer to discharge work sheet. DISCHARGE INSTRUCTIONS: The patient should follow up with his PCP in a week. Should follow up with Dr. Sheila Magallanes in the clinic in 1 to 2 weeks for getting a PET scan for possible cancer in his brain. He should use a walker while ambulating. Job ID: [id number] [facility]
[2019-12-09 11:14] LABS: A/G Ratio 1.2 (0.7-1.7); Albumin 3.2 g/dL (2.9-4.4); Alpha 1 0.3 g/dL (0.0-0.4); Alpha 2 0.7 g/dL (0.4-1.0); Beta 1.1 g/dL (0.7-1.3); Gamma 0.7 g/dL (0.4-1.8); Globulin, Total 2.7 g/dL (2.2-3.9); M-Spike Not Observed g/dL (Not Observed)
[2019-12-10 12:38] LABS: Kappa Lambda Light Chain Ratio 1.19 (0.26-1.65); Kappa Light Chains 28.3 mg/L (3.3-19.4); Lambda Light Chain 23.8 mg/L (5.7-26.3)
== END 2019-12-08 16:20 | disposition home health service (06) | DRG 54 ==
LOC: ERS 12:01 → 2NO 15:02 → OBSVTOIN 15:02
PROVIDERS: ADMIT Internal Medicine; ATTEND Internal Medicine
DX: C79.31 Secondary malignant neoplasm of brain (principal); I50.23 Acute on chronic systolic (congestive) heart failure; C90.00 Multiple myeloma not having achieved remission; I42.8 Other cardiomyopathies; I13.0 Hypertensive heart and chronic kidney disease with heart failure and stage 1 through stage 4 chronic kidney disease, or unspecified chronic kidney disease; C79.51 Secondary malignant neoplasm of bone; E87.1 Hypo-osmolality and hyponatremia; E86.0 Dehydration; G40.909 Epilepsy, unspecified, not intractable, without status epilepticus; J44.9 Chronic obstructive pulmonary disease, unspecified; I48.0 Paroxysmal atrial fibrillation; I25.10 Atherosclerotic heart disease of native coronary artery without angina pectoris; N18.9 Chronic kidney disease, unspecified; R73.03 Prediabetes; F31.9 Bipolar disorder, unspecified; Z96.642 Presence of left artificial hip joint; R29.6 Repeated falls; D63.1 Anemia in chronic kidney disease; H40.9 Unspecified glaucoma; I73.9 Peripheral vascular disease, unspecified; I25.2 Old myocardial infarction; Z90.49 Acquired absence of other specified parts of digestive tract; Z87.891 Personal history of nicotine dependence; Z95.2 Presence of prosthetic heart valve; Z86.73 Personal history of transient ischemic attack (TIA), and cerebral infarction without residual deficits; Z88.8 Allergy status to other drugs, medicaments and biological substances; Z88.1 Allergy status to other antibiotic agents; Z79.52 Long term (current) use of systemic steroids; Z85.118 Personal history of other malignant neoplasm of bronchus and lung; Z85.46 Personal history of malignant neoplasm of prostate; Z79.899 Other long term (current) drug therapy
CPT/HCPCS: 36415; 36416; 70450; 71045; 71275; 80048; 80053; 80061; 80185; 81003; 81015; 82553; 83036; 83735; 83880; 83883; 84153; 84165; 84443; 84484; 85025; 85027; 87077; 87086; 87186; 93005; 96361; 96365; J0696; J1940; J3490; Q9967

== ENCOUNTER 2019-12-26 07:48 | Inpatient (IN) | payer MEDICARE ==
[2019-12-26 08:38] LABS: #Basophils 0.1 thou/uL (0.0-0.2); #Eosinphils 0.2 thou/uL (0.0-0.7); #Lymphocytes 2.2 thou/uL (1.20-3.40); #Neutrophils 5.9 thou/uL (1.40-6.50); %Basophils 0.9 % (0.0-1.0); %Eosinophils 1.9 % (0.0-10.0); %Lymphocytes 23.1 % (21.0-51.0); %Monocytes 11.2 % (0.0-10.0); Hemoglobin 11.3 g/dL (14.0-18.0); Mean Corpuscular HGB CONC 32.2 g/dL (32.0-36.0); Mean Corpuscular Hemoglobin 32.3 pg (27.0-31.0); Mean Platelet Volume 10.5 fL (7.4-10.4); Platelet Count 43 thou/uL (130-400); RBC Distribution Width 15.9 % (11.5-14.5); White Blood Cell (WBC) Count 9.3 thou/uL (4.8-10.8)
--- NOTE | 2019-12-26 08:48 | CT ---
EXAM: CT brain without contrast HISTORY: Fall with head injury COMPARISON: None TECHNIQUE: Multiple contiguous axial images were obtained and a CT of the brain without contrast. FINDINGS: There is a small 4 mm subdural hematoma along the left and right posterior convexities. A s mall amount of subarachnoid hemorrhage is seen in the left frontal lobe. There also appears to be a small amount of subdural hemorrhage along both frontal convexities. There is no evidence of intravent ricular hemorrhage or hydrocephalus. No downward herniation or midline shift is seen. There is left posterior scalp soft tissue swelling. The underlying calvarium is unremarkable. The vis ualized paranasal sinuses and mastoid air cells are well aerated. IMPRESSION: Diffuse subdural hemorrhage as above with small amount of subarachnoid blood in the left frontal lobe. Dr. Pedraza notified of findings at 8:44 AM on 12/26/2019.
--- NOTE | 2019-12-26 08:54 | CT ---
Exam: Thoracic spine CT without contrast HISTORY: Pain. Injury. Fall. COMPARISON: None Correlation: CT angiogram of the chest 12/06/2019 FINDINGS: Limited evaluation mediastinum. No mass, lymphadenopathy or hematoma. Heart is enlarged. There are co ronary artery calcifications. Aortic valve calcification. Small bilateral effusions. Patchy opacities in the lung parenchyma, unchanged from the recent CT doroteo ogram of the chest. There is a focal groundglass opacity in the left upper lobe which is developed since the previous examination. Upper solid organs do not demonstrate any acute abnormality. Atherosclerosis and elongation of the aorta Multifocal hyperdensities throughout the thoracic spine compatible with osseous metastases. There gudino s not appear to be a pathologic fracture. Multiple metastatic deposits involve the left and right ribs. Old right rib fractures are identified. IMPRESSION: 1. No fracture 2. Multifocal osseous metastases
[2019-12-26 08:57] LABS: MDiff Complete? YES; Platelet Morphology Comment Appears Decreased; Polychromasia SLIGHT = 2-3 cells (100X) (0-2/hpf)
--- NOTE | 2019-12-26 09:00 | RAD ---
Exam:2 views left hip HISTORY: Pain and injury. Fall. COMPARISON: None FINDINGS: Uncomplicated left hip arthroplasty. Visualized bony pelvis is intact. IMPRESSION: No fracture. Uncomplicated left hip arthroplasty.
[2019-12-26 09:03] LABS: ALT (SGPT) 42 U/L (8-55); AST (SGOT) 93 U/L (5-34); Albumin 3.5 g/dL (3.4-4.8); Alkaline Phosphatase 154 U/L (40-110); Anion Gap 18 mmol/L (10-20); BUN (Urea Nitrogen) 36 mg/dL (8.4-25.7); Bilirubin, Total 1.1 mg/dL (0.2-1.2); CK (CPK) 297 U/L (30-200); Calc. Creatinine Clearance 0 mL/min (70-130); Calcium 8.4 mg/dL (7.8-10.44); Carbon Dioxide 23 mmol/L (23-31); Chloride 97 mmol/L (98-107); Estimated GFR-MDRD 56; Globulin 2.7 g/dL (2.4-3.5); Glucose 124 mg/dL (83-110); Potassium 4.5 mmol/L (3.5-5.1); Protein, Total 6.2 g/dL (5.8-8.1); Sodium 133 mmol/L (136-145)
--- NOTE | 2019-12-26 09:04 | CT ---
CT lumbar spine noncontrast: 12/26/2019 HISTORY: 79-year-old male with acute traumatic low back pain due to fall. FINDINGS: Partial visualization of several partially calcified gallstones within a distended gallbladder. Left periaortic and retroaortic retroperitoneal lymphadenopathy with adjacent fat stranding. This was present on previous abdominal CT of 04/20/2019, but the fat stranding is somewhat worse. Fat stranding in the bilateral perirenal spaces is also somewhat worse than on previous abdominal and pel timothy CT. Tiny right pleural effusion. Stents in the right common iliac vein and right external iliac vein, new since 04/20/2019. There is a new finding of edema and what is probably hematoma in the subcutaneous fat of the left low er flank, posterior to the left iliac bone, which crosses the midline to extend to the contralateral right side, all posterior to the posterior lumbar fascia and posterior sacral fascia. Large number of osteoblastic metastatic lesions throughout all visualized lower thoracic and lumbar v ertebrae, sacrum, and ileum. 5 lumbar-type vertebrae. Vertebral body heights are maintained. Bilateral L5 pars interarticularis defects causing prominent grade 1 or 2 anterolisthesis of L5 on S1 . Multilevel severe and moderate degenerative disc disease, including L5-S1. Multilevel high-grade neural foraminal stenosis, including severe right and very severe left neural f oraminal stenosis at L5-S1, and severe right neural foraminal stenosis at L4-5. Moderate central spinal canal stenosis at L3-4. IMPRESSION: 1.) No acute compression fracture identified. 2) acute, traumatic, posterior superficial soft tissue hematoma and contusion in the subcutaneous fat , posterior to the dorsal lumbosacral fascia. 3) extensive osteoblastic skeletal metastasis. 4) grade 1 or 2 spondylolisthesis at L5-S1 due to bilateral L5 spondylolysis. 5) severe lumbar spondylosis with multilevel severe degenerative disc disease and severe neural alan inal stenosis. 6) retroperitoneal lymphadenopathy 7) cholelithiasis. 8) increased fat stranding in the retroperitoneum since 04/28/2019 9) vascular stents in right common iliac vein and right external iliac vein.
[2019-12-26 09:32] LABS: INR-International Normal Ratio 2.6; PTT 44.2 sec (22.9-36.1); Prothrombin Time 27.6 sec (12.0-14.7)
[2019-12-26 09:41] LABS: CKMB 8.7 ng/mL (0-6.6)
[2019-12-26] MEDS ORDERED: Dextrose 5% in Water 1,000 ML IV PRN (09:56)
[2019-12-26] MEDS ORDERED: hydrALAZINE 20 MG/ML VIAL SLOW IVP PRN ×2 (09:56)
[2019-12-26] MEDS ORDERED: HumaLOG 300 UNITS/3 ML VIAL SC PRN (09:56)
[2019-12-26] MEDS ORDERED: Ondansetron PF 4 MG/2 ML Vial IVP PRN (09:56)
[2019-12-26] MEDS ORDERED: Dextrose 50% Abboject 50 ML SYRINGE SLOW IVP PRN (09:56)
[2019-12-26] MEDS ORDERED: traMADol HCl 50 MG TAB PO PRN (10:00)
[2019-12-26] MEDS ORDERED: Sodium Chloride 0.9% 1,000 ML IV SCH (10:15)
[2019-12-26 10:22] LABS: Bacteria/HPF None Seen HPF (None Seen); Bilirubin Negative (Negative); Blood, Urine 1+ (Negative); Clarity Turbid (Clear); Glucose, Urine (Dipstick) Normal (Negative); Leukocyte 500 Leu/uL (Negative); Nitrite Negative (Negative); Protein, Urine (Dipstick) 50 mg/dL (Neg-Trace); Squamous Epithelial 0-3 HPF (0-3); Urobilinogen Normal mg/dL (Less than 2); WBC/HPF Greater than 50 HPF (0-3)
--- NOTE | 2019-12-26 10:37 | RAD ---
EXAM: Single view of the chest HISTORY: Fall with chest pain COMPARISON: 12/05/2019 FINDINGS: Single view of the chest shows an enlarged but stable cardiomediastinal silhouette. The pa cemaker is unchanged in position. There is no evidence of consolidation, mass, or pleural effusion. The bones are unremarkable. IMPRESSION: Stable cardiomegaly
--- NOTE | 2019-12-26 10:42 | CT ---
CT CERVICAL SPINE: DAET: 12/26/2019. PROVIDED CLINICAL HISTORY: Neck pain status post injury. FINDINGS: There is no evidence for a fracture or traumatic subluxation. Multiple sclerotic foci compatible wit h metastatic disease are demonstrated. Cervical degenerative changes are seen. No prevertebral soft tissue swelling apparent. Partially visualized left occipital scalp swelling. Vascular calcificati ons involving the carotid system. The visualized lung apices appear clear. IMPRESSION: 1. No evidence for fracture or traumatic subluxation. 2. Osseous metastatic disease. POS: STEVE
--- NOTE | 2019-12-26 11:10 | RAD ---
AP PELVIS: HISTORY: Fall, injury, hip pain. FINDINGS: A left femoral head prosthesis is present in good position and alignment. There is a small linear feliz cency in the medial aspect of the bone in the region of the lesser trochanteric which is also seen on the sand blaster radiographs of the CT scans of 04/20/2019 and 11/04/2018. No acute fracture or dislocation is identified. There are multiple sclerotic foci in the bones consistent with osseous metastatic disease. POS: ELVIN
[2019-12-26 11:36] LABS: Critical Call Chem Troponin I RESULT DECREASING; Troponin I 1.137 ng/mL (< 0.028)
[2019-12-26 13:14] VITALS: BMI 25.5
--- NOTE | 2019-12-26 14:23 | CT ---
EXAM: CT brain without contrast HISTORY: Subdural hemorrhage COMPARISON: 12/26/2019 TECHNIQUE: Multiple contiguous axial images were obtained and a CT of the brain without contrast. FINDINGS: The bilateral parietal convexity subdural hemorrhages have enlarged. The left-sided hemorrh age now measures 1.9 cm in thickness. The right-sided hemorrhage now measures 6 mm in thickness. The hemorrhage in the frontal regions has remained stable. There appears to be a small amount of intr aventricular hemorrhage in the posterior aspect of the lateral ventricles. No hydrocephalus is seen. No downward herniation is seen. There is mild shift of the midline to the right of approximatel y 3 to 4 mm. Soft tissue swelling is seen in the left parietal scalp. The calvarium is unremarkable. The visualize d paranasal sinuses and mastoid air cells are well aerated. IMPRESSION: 1. Worsening of bilateral subdural hemorrhages. 2. Interval development of small amount of intraventricular hemorrhage.
[2019-12-26 14:41] LABS: Critical Call Chem Troponin I RESULT DECREASING; Troponin I 0.898 ng/mL (< 0.028)
[2019-12-26] MEDS ORDERED: Phytonadione 5 MG in Sodium Chloride 0.9% 50 ML IVPB SCH (15:00)
--- NOTE | 2019-12-26 15:16 | PRG ---
DATE OF SERVICE: 12/26/2019 Catracho Knowles is an 79-year-old male patient, found down after suffering a fall, suspect same height, seen by Ita Acuña and I agree with her assessment and plan. The patient has pacemaker and troponins were elevated and will be evaluated by Cardiology. Brain CAT scan reveals worsening bilateral subdurals and interval small amount of intraventricular hemorrhage. The patient has a C-collar in place and cervical CAT scan does not reveal any acute changes. Thoracic CAT scan demonstrated multiple osseous metastasis. Echocardiogram in August 2019, 25% to 29% ejection fraction, defibrillator in place, severe mitral regurgitation, severe tricuspid regurgitation. Recent hospitalization, seen by Oncology for his metastatic prostate cancer. Plan at this time is to await Neurosurgery evaluation, provide supportive care. Job ID: [id number]
[2019-12-26] MEDS ORDERED: HUMAN PROTHROMBIN COMPLX IV SCH (15:30)
[2019-12-26] MEDS ORDERED: ADMIXTURE FEE IV SCH (15:30)
[2019-12-26 15:36] LABS: #Eosinphils 0.1 thou/uL (0.0-0.7); #Lymphocytes 1.7 thou/uL (1.20-3.40); #Monocytes 1.5 thou/uL (0.11-0.59); #Neutrophils 10.7 thou/uL (1.40-6.50); %Basophils 0.3 % (0.0-1.0); %Eosinophils 0.6 % (0.0-10.0); %Monocytes 10.7 % (0.0-10.0); %Neutrophils 76.4 % (42.0-75.0); Hemoglobin 10.8 g/dL (14.0-18.0); Mean Corpuscular Hemoglobin 32.7 pg (27.0-31.0); Mean Platelet Volume 9.7 fL (7.4-10.4); Platelet Count 70 thou/uL (130-400); RBC Distribution Width 16.2 % (11.5-14.5); Red Blood Cell (RBC) Count 3.32 mill/uL (4.70-6.10)
--- NOTE | 2019-12-26 16:06 | CON ---
DATE OF CONSULTATION: 12/26/2019 REASON FOR CONSULTATION: Non-STEMI and syncope. 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 He has been seen by [facility], Dr. 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 HISTORY OF PRESENT ILLNESS: Mr. Knowles is a pleasant 79-year-old white gentleman, who comes to the hospital after being found down by his roommate. He has a history of a dilated cardiomyopathy. It is unclear as to whether this is ischemic versus nonischemic. Apparently, he has had stents in the past, but also he has had a catheterization that showed no significant coronary artery disease, this was back in 2013. He does have an AICD placed due to his dilated cardiomyopathy, last EF was about 20% to 25% just a few months ago. He was found down this morning, did not remember what happened. He was brought into the hospital and was found to have subarachnoid hemorrhages which is actually getting worse. He is somewhat altered, unable to give accurate history. On admission, troponins were drawn and they were positive, so Cardiology has been consulted for this. PAST MEDICAL HISTORY: 1. Dilated cardiomyopathy. 2. Coronary artery disease with history of stent placement apparently. 3. Chronic systolic heart failure. 4. History of CVA with no residual. 5. COPD. 6. Hypertension. 7. Bipolar disorder. 8. History of atrial fibrillation. 9. BPH. 10. Prostate cancer. 11. Multiple myeloma with metastatic bone lesions. SURGICAL HISTORY: 1. Biventricular AICD. 2. Percutaneous closure of PFO. 3. Peptic ulcer disease in 1980. 4. Right carotid endarterectomy by Dr. Salmon. 5. Mastoid surgery. 6. SVT and atrial fibrillation ablation in the past. OUTPATIENT MEDICATIONS: 1. Clonidine. 2. Zoledronic acid. 3. Torsemide 20 mg a day as needed. 4. Dilantin 200 mg b.i.d. 5. Zofran 4 mg p.r.n. 6. Multivitamin daily. 7. Fluticasone nasal spray. 8. Chromium picolinate. 9. Vitamin D3. 10. Coreg 12.5 b.i.d. 11. Albuterol inhaler p.r.n. ALLERGIES: 1. TYLENOL. 2. AMIODARONE. 3. AMLODIPINE. 4. ARBS. 5. CALCIUM CHANNEL DARRION. 6. LEVOFLOXACIN. 7. MEPERIDINE. 8. VALSARTAN. 9. BETA BLOCKERS. SOCIAL HISTORY: No alcohol, tobacco, or drugs. REVIEW OF SYSTEMS: Unobtainable at this time as he is confused. PHYSICAL EXAMINATION: VITAL SIGNS: Temperature 97.3, pulse 70, respiratory rate 18, saturating 100% on room air, blood pressure 147/58. GENERAL: Awake, alert, oriented to person and place, but not to time or situation. HEENT: Normocephalic. NECK: Has a neck brace. LUNGS: Clear. CARDIOVASCULAR: S1 and S2. There is a grade 2/6 systolic murmur at the right upper sternal border. ABDOMEN: Soft. Positive bowel sounds. EXTREMITIES: No edema. SKIN: Warm and dry. LABORATORY DATA: Laboratory work was reviewed. His CBC with a white count of 9, hemoglobin of 11, hematocrit of 35, platelet count of 43. Coags with an INR of 2.6. Chemistries; sodium of 133, potassium is 4.5, chloride and carbon dioxide are pretty unremarkable, anion gap of 18, BUN of 36, creatinine 1.24, GFR was 56. Troponin was 1.2, then 1.1 and then 0.89 with a CK-MB of 8.7, CK was 297. Alkaline phosphatase was 154, which is high. ALT is normal but AST high at 93. Albumin of 3.5. Cortisol level was normal. UA was with 1+ blood, 500 leukocyte esterase, 7 to 10 red cells. EKG was reviewed, paced rhythm. ASSESSMENT: 1. Fall. 2. Subarachnoid hemorrhage and intraventricular hemorrhage. 3. Most likely traumatic subarachnoid hemorrhage. 4. History of dilated cardiomyopathy. 5. History of multiple AICD shocks in the recent past. PLAN: 1. We will interrogate defibrillator to make sure this was not VT arrest that made him fall and hit his head. 2. Other possibilities would be seizure disorders from which can also be related to VT. 3. At this point, it is prohibitive to do any anticoagulation or antiplatelet given his subarachnoid hemorrhage, so conservative therapy is the only option at this point, which would not include any antiplatelet either. No anticoagulation. 4. Continue supportive care for now. Thank you for letting us to participate in the care of your patient. Further recommendations per results of interrogation. Job ID: [id number]
[2019-12-26] MEDS ORDERED: Torsemide 20 MG TAB PO PRN (16:48)
--- NOTE | 2019-12-26 17:51 | PRG ---
DATE OF SERVICE: 12/26/2019 I am dictating this note to document a conversation I had with Jonnie Knowles, the patient's son, who is his medical power of commercial real estate attorney. Briefly, Catracho Knowles, is an 79-year-old gentleman with metastatic prostate cancer, atrial fibrillation, DVT, and pulmonary embolus, who came to the emergency department today after a fall and was found on CT examination of the brain to have small bilateral subdural hematomas. He also had multiple bony metastases that looked blastic, likely from prostate cancer, riddling in his entire spine. His admission platelet count is in the 40,000 range. Admission INR was 2.2 in spite of the fact that he seems to have stopped Coumadin months ago. He may have been on Eliquis more recently for DVT treatment. In the emergency department, 1 unit of platelets was administered, and he was transferred to the [facility]. A repeat CT scan of the brain this afternoon showed marked increase in the volume of the left subdural hematoma with now a mass effect on the brain without much in the way of midline shift or herniation yet. However, the change prompted a call to the son. Jonnie Knowles, the patient's son, and I had a lengthy conversation about end of life issues. I had that conversation because of coagulopathy. He has three reasons for his coagulopathy. First, I think is bone marrow is involved with his metastatic cancer because his thrombocytopenia is perplexing. It is severe as well. Second, he has been on a blood thinner including Coumadin months ago and more recently Eliquis according to notes from the [facility]. Third, I think his liver's ability to create clotting factors is adversely affected by not only his metastatic cancer, but his chronic alcoholism (according to his son). For these three reasons, craniotomy would be a high risk procedure. Nonetheless , I was prepared to offer it if the family wanted every possible intervention done to save his life. That is not what his son understands from his father. In fact, his father told him he did not want to be in a state where he was dependent. He is very depressed about having to go into the [facility] soon with all his other medical issues. He was a fiercely independent person to the point of being a bit off-putting to others. His bipolar disorder accentuated that. Therefore, it is his son's feeling that his father would not want surgical intervention and he would not want intubation and he would not want resuscitation. We are going to follow those orders. Our neurosurgery team will be available for questions, but we were not going to offer neurosurgical intervention given this conversation. Consult the palliative Care and/or Hospice can be made. Please call with questions (15 minutes). Job ID: [id number] [facility]TD[facility]
[2019-12-26] MEDS: Carvedilol 6.25 MG TAB PO SCH (18:21)
[2019-12-26 18:54] LABS: Platelet Count 76 thou/uL (130-400)
[2019-12-26 19:01] LABS: INR-International Normal Ratio 2.3; PTT 44.5 sec (22.9-36.1); Prothrombin Time 25.5 sec (12.0-14.7)
[2019-12-26] MEDS ORDERED: cloNIDine 0.1 MG TAB PO SCH (21:00)
[2019-12-26] MEDS: Famotidine/PF 20 mg/2ml Vial SLOW IVP SCH (21:48)
[2019-12-26] MEDS: Senokot S 8.6-50 MG TAB PO SCH (21:50)
[2019-12-26] MEDS: Gabapentin 100 MG CAP PO SCH (21:50)
[2019-12-26 21:56] LABS: INR-International Normal Ratio 3.7; PTT 58.1 sec (22.9-36.1); Prothrombin Time 36.4 sec (12.0-14.7)
[2019-12-26 23:28] LABS: PTT 60.3 sec (22.9-36.1); Prothrombin Time 44.3 sec (12.0-14.7)
[2019-12-26 23:30] LABS: INR-International Normal Ratio 4.8
--- NOTE | 2019-12-26 23:42 | PRG ---
DATE OF SERVICE: 12/26/2019 SUBJECTIVE: The patient is admitted today, status post ground level fall, which he sustained bilateral subdural hemorrhages and a small intraventricular hemorrhage , shows complicated as the patient was reportedly on Eliquis. He had previously been on Coumadin. The patient did receive vitamin K plasma and the Kcentra in the emergency department. At the time of my visit, the patient's INR had actually increased from 2.3 earlier to 3.7, at the time of this dictation having that lab repeated to verify. If it is actually accurate, we will re-dose his Kcentra as I have discussed this with the pharmacist and he was in agreement. This will be the course. OBJECTIVE: VITAL SIGNS: The patient is afebrile. His heart rate is 70, this is a pacemaker rate. Blood pressure 110/60, respirations 21, and oxygen saturation 100% on 2 L via nasal cannula. GENERAL: The patient is resting comfortably in bed. He was asleep, but did awaken to verbal stimuli. His [place] Coma Scale is 12; it is E3, V3, M6. HEENT: Shows contusions and slight periorbital ecchymosis. LUNGS: Clear to auscultation bilaterally. HEART: Regular rate and rhythm. ABDOMEN: Soft and nontender with active bowel sounds. EXTREMITIES: Neurovascularly intact x4. ASSESSMENT: 1. Status post ground level fall on Eliquis. 2. Bilateral subdural hematoma, worsening due to coagulopathy. 3. Intraventricular hemorrhage, worsening due to coagulopathy. 4. History of pacemaker, severe mitral regurgitation, tricuspid regurgitation, metastatic prostate cancer, and multiple myeloma with metastasis. PLAN: Plan will be to continue supportive care. Per Dr. Osborn's note, the patient is DNAR. He is not a surgical candidate. He discussed the options and prognosis with the patients son. We will continue medical management at this time. Job ID: [id number] [facility]
--- NOTE | 2019-12-26 23:52 | HP ---
This is Domenico Jean Baptiste PA-C dictating a report for Bart Lugo MD. REQUESTING PHYSICIAN: Dr. Александр Pedraza. CONSULTING PHYSICIANS: Dr. Osborn and Dr. Patino. HISTORY OF PRESENT ILLNESS: Mr. Knowles is an 79-year-old gentleman, presented to the ED after an incident of unwitnessed fall at home. Patient reports he did not remember the event. Patient was found to be on the floor, did not recall loss of consciousness. Upon arrival in the ED, patient was alert and awake. GCS 14, which is most likely his baseline. He stated that patient is on hospice and he also has multiple myeloma metastasis. Patient showed no signs of respiratory distress. Vital signs stable. Complains of pain on the head area. No weakness to be reported. SURGICAL HISTORY: ICD, carotid endarterectomy, and atrial fibrillation ablation. ALLERGIES: ALLERGY WITH MULTIPLE MEDICATIONS, LEVOFLOXACIN, CALCIUM, AMLODIPINE , AMIODARONE, TYLENOL, AND BETA DARRION. CURRENT MEDICATION: Clonidine, torsemide, Dilantin, Zofran, fluticasone, Coreg , and albuterol. REVIEW OF SYSTEMS: Noncontributory, except per HPI. PHYSICAL EXAMINATION: GENERAL: Patient is alert and awake. No signs of respiratory distress. No chest pain. GCS of 14 with somewhat confused. VITAL SIGNS: Temperature 97.3, heart rate 70, respiratory rate 18, O2 saturation 100 on room air, and blood pressure 147/58. HEENT: Left side skull is mildly swollen. No bleeding. No discharge from the nostril bilaterally or ear bilaterally. No crepitus. No bruising of the facial area. NECK: Patient is on C-collar. Patient stated that his posterior midline C- spine is tender to palpation. CHEST: Atraumatic. No bruising. No tender to palpation. No crepitus. LUNGS: Clear bilaterally. HEART: Regular rate and regular rhythm. ABDOMEN: There is abdominal wall bruising. However, abdomen is nondistended, nontender to palpation. Bowel sounds are active. PELVIS: Stable. EXTREMITIES: Positive bilaterally. Bilateral lower extremity edema. Patient moves all 4 extremities. NEUROLOGY: No focal neurology deficits. Pupil 3 mm, equal bilaterally. GCS 14. LABORATORY DATA: Initial workup shows white count 9.3, hemoglobin 11.3, and platelet count 43,000. Chemistry; sodium 133, potassium 4.5, and creatinine 1.24. Troponin I is 1.249. CK-MB 8.7. Coagulation, INR 2.6, PT 27.6. Urine, no bacteria. IMAGING: Brain CT scan showed diffuse subdural hemorrhage and a small amount of subarachnoid blood in the left frontal lobe. Cervical spine, no evidence for fracture or traumatic subluxation. Chest x-ray, stable cardiomegaly. Thoracic spine CT scan, no fracture. Multifocal osseous metastases. Hip x-ray, no fracture. ASSESSMENT: 1. Status post unwitnessed fall. 2. . Subdural subarachnoid hemorrhage coagulopathy abnormality. 3. Elevated troponin I . Dilated cardiomyopathy, coronary artery disease, atrial fibrillation, history of prostate cancer, multiple myeloma with bone metastasis, and chronic obstructive pulmonary disease. 4. Thrombocytopenia. PLAN: 1. Patient will be admitted to the ICU. We will repeat troponin serial for troponin elevation and possible new myocardial infarction. 2. Patient will have coagulopathy reversal with FFP, vitamin K, and platelet transfusion. Neurosurgery is notified Neurosurgery ordered repeat CT scan in 6 hours. Cardiology is consulted. Palliative Care and Hospice Services are consulted. Patient's family will be contacted regarding DNR code status and update on the condition and plan of care. Dr. Lugo was discussed on this case before this dictation. Job ID: [id number] [facility]
--- NOTE | 2019-12-27 00:57 | CON ---
DATE OF CONSULTATION: 12/26/2019 HISTORY OF PRESENT ILLNESS: Mr. Knowles is an 79-year-old gentleman, who was found down on the floor this morning by his roommate. It is reported that Mr. Knowles was going to go into hospice on December 26. Unfortunately, he fell from a standing position and does not remember much from the fall. He is answering all my questions and he is moving all his extremities, but he is obviously a little upset that he is in the hospital. It is reported that Mr. Knowles has a history of PE, DVT, atrial fibrillation, and metastatic prostate cancer. In the emergency room , a CT examination of the brain was taken and found to have a small bilateral subdural hematoma. His platelet count was 70 and he had an INR of 2.6. He has a pacemaker and it is unclear if he was taking Coumadin or Eliquis. One unit of platelets was given in the emergency room and later Kcentra was given. He was transferred to the ICU and later in there, he has also received another unit of platelets. CT of the brain in the afternoon while Mr. Knowles was in the ICU showed increased volume of the left subdural hematoma with mass effect. PAST MEDICAL HISTORY: Metastatic bone lesions, prostate cancer, BPH, atrial fibrillation, bipolar, hypertension, COPD, CAD, DVT, and pulmonary embolus. SOCIAL HISTORY: The patient drinks alcohol. He is a former drug user, using medical cannabis and a former tobacco user. PAST SURGICAL HISTORY: Atrial fibrillation ablation, mastoid surgery, right carotid endarterectomy, peptic ulcer disease, and biventricular AICD. MEDICATIONS: 1. Albuterol. 2. Coreg. 3. Vitamin D3. 4. Chromium. 5. Flonase. 6. Multivitamin. 7. Zofran. 8. Dilantin. 9. Torsemide. 10. Zoledronic acid. 11. Clonidine. ALLERGIES: ARBS, AMLODIPINE, AMIODARONE, TYLENOL, CALCIUM CHANNEL DARRION, LEVOFLOXACIN, VALSARTAN, BETA-BLOCKERS, AND MEPERIDINE. REVIEW OF SYSTEMS: CONSTITUTIONAL: Denies fevers or chills. ENT: Denies change in vision or hearing. CARDIAC: Denies chest pain, shortness of breath, or diaphoresis. PULMONARY: Denies shortness of breath, cough, or hemoptysis. GI: Denies abdominal pain, nausea, vomiting, diarrhea, change in stool formation, or consistency. : Denies trouble with urination, frequency of urination, or bloody urine. SKIN: Denies skin rash, bruising, bleeding, or skin masses. MUSCULOSKELETAL: Reports lower back pain. NEUROLOGIC: As per history of present illness. PSYCHOLOGIC: Denies anxiety, depression, or behavior changes. PHYSICAL EXAMINATION: VITAL SIGNS: Blood pressure 150/90, pulse 72, and respiratory rate is 18. HEENT: Pupils are equal. Extraocular movements are intact. NECK: Soft and supple. No masses are noted. Range of motion intact and nonpainful. NEUROLOGIC: Awake, alert, and oriented. Cranial nerves grossly intact. SKIN: He is slightly pale. He does have multiple areas of ecchymosis on his upper and lower extremities. EXTREMITIES: Upper extremity, he does have good strength in his deltoids, biceps, triceps, wrist extensions, finger extension and finger intrinsics. He has good strength in his iliopsoas, quadriceps, hamstrings, anterior tib, EHL, and gastrocnemius. LABORATORY DATA: White blood cell 9.3, and platelets 70. PT 27.6, INR 2.6, and PTT 44.2, sodium 133. IMAGING: CT of the brain in the morning shows small bilateral subdural hematoma. CT of brain in the afternoon showed increase in volume of the left subdural hematoma with mass effect. Dr. Osborn spoke to Mr. Knowles's son and offered him a high risk procedure of a craniotomy and this intervention would possibly save his life. Son states that his father told him that he would want to live in a [place] facility and be dependent on others. His son is feeling that his father would not want surgical intervention and he is going to continue with a DNAR, no resuscitation. Per the son knows neurosurgical intervention will be offered at this time. There is a plan of the patient being transferred to hospice tomorrow morning. Spoke to Mr Knowles's son and he states he would does not want to continue treatment to prolong his father's suffering and would like implement comfort measures. Job ID: [id number] [facility]
[2019-12-27] MEDS ORDERED: Lorazepam 2 MG/ML VIAL SLOW IVP PRN (02:18)
[2019-12-27] MEDS: Morphine 2 MG/ML SYRINGE SLOW IVP PRN ×3 (02:23→17:24)
[2019-12-27] MEDS ORDERED: diphenhydrAMINE 50 MG/ML VIAL IVP PRN (04:32)
[2019-12-27] MEDS ORDERED: Docusate 100 MG CAP PO PRN (07:33)
[2019-12-27 07:48] VITALS: BP 128/62; TEMP 97.4
[2019-12-27] MEDS: Famotidine/PF 20 mg/2ml Vial SLOW IVP SCH (08:22)
[2019-12-27] MEDS: Gabapentin 100 MG CAP PO SCH (08:24)
[2019-12-27] MEDS: Carvedilol 6.25 MG TAB PO SCH ×2 (08:24→17:26)
[2019-12-27] MEDS: Senokot S 8.6-50 MG TAB PO SCH (08:24)
[2019-12-27] MEDS ORDERED: Polyethylene Glycol 3350 17 GM Packet PO SCH (09:00)
== END 2019-12-27 17:46 | disposition hospice, inpatient (51) | DRG 85 ==
LOC: ERS 07:48 → CCU 12:59 → ONC 12-27 02:06
PROVIDERS: ADMIT Specialist; ATTEND Specialist
DX: S06.6X0A Traumatic subarachnoid hemorrhage without loss of consciousness, initial encounter (principal); I21.4 Non-ST elevation (NSTEMI) myocardial infarction; I42.0 Dilated cardiomyopathy; I50.22 Chronic systolic (congestive) heart failure; C90.00 Multiple myeloma not having achieved remission; C79.51 Secondary malignant neoplasm of bone; Z51.5 Encounter for palliative care; I08.1 Rheumatic disorders of both mitral and tricuspid valves; I48.91 Unspecified atrial fibrillation; J44.9 Chronic obstructive pulmonary disease, unspecified; F31.9 Bipolar disorder, unspecified; I25.10 Atherosclerotic heart disease of native coronary artery without angina pectoris; N40.0 Benign prostatic hyperplasia without lower urinary tract symptoms; D69.6 Thrombocytopenia, unspecified; Z87.891 Personal history of nicotine dependence; Z95.0 Presence of cardiac pacemaker; Z89.422 Acquired absence of other left toe(s); Z88.1 Allergy status to other antibiotic agents; Z88.8 Allergy status to other drugs, medicaments and biological substances; Z88.6 Allergy status to analgesic agent; Z95.5 Presence of coronary angioplasty implant and graft; Z86.73 Personal history of transient ischemic attack (TIA), and cerebral infarction without residual deficits; Z79.01 Long term (current) use of anticoagulants; Z86.718 Personal history of other venous thrombosis and embolism; Z86.711 Personal history of pulmonary embolism
CPT/HCPCS: 36415; 36430; 70450; 71045; 72125; 72128; 72131; 72170; 80053; 81003; 81015; 82533; 82550; 82553; 84484; 85025; 85610; 85730; 86850; 86900; 86901; 93005; C9132; G0390; J2060; J2270; J3430; P9035; P9059; S0028

== ENCOUNTER 2019-12-27 18:05 | Inpatient (IN) | payer OTHER ==
[2019-12-27] MEDS ORDERED: Lorazepam 2 MG/ML VIAL SLOW IVP PRN (18:20)
[2019-12-27] MEDS ORDERED: diphenhydrAMINE 50 MG/ML VIAL IVP PRN (18:21)
[2019-12-27] MEDS ORDERED: Ondansetron PF 4 MG/2 ML Vial IVP PRN (18:22)
[2019-12-27 18:25] VITALS: BMI 25.5
[2019-12-27] MEDS ORDERED: Scopolamine 1.5 mg/72 hour Patch TOP SCH (18:30)
[2019-12-27] MEDS: Morphine 2 MG/ML SYRINGE SLOW IVP SCH (20:47)
[2019-12-27] MEDS: Lorazepam 2 MG/ML VIAL SLOW IVP SCH (20:47)
--- NOTE | 2019-12-27 22:18 | HP ---
CHIEF COMPLAINT: Subdural hematoma. HISTORY OF PRESENT ILLNESS: Mr. Knowles is an 79-year-old male, who presents to the hospital on 12/26/2019 after a fall. Diagnosed with subdural hematoma. Rapid decline. Became minimally responsive. Family was contacted. They decided on hospice. [facility] has assumed care. He is in bed. He is not responsive. He is comfortable. Comfort medications were administered prior to me seeing him. Son is aware of the situation. He has shallow respirations. He has multiple ecchymoses in lower extremities. Nursing staff have no concerns. PAST MEDICAL HISTORY: 1. Multiple myeloma. 2. COPD. 3. Mood disorder. 4. Glaucoma. 5. Prostate cancer. 6. Hypertension. 7. Ischemic cardiomyopathy with an ejection fraction of 20%. 8. History of CVA. 9. Bilateral carotid artery stenosis. 10. AFib. PAST SURGICAL HISTORY: 1. Ablation for AFib. 2. Left hip replacement. 3. Tonsillectomy with adenoidectomy. 4. Left second toe amputation. 5. Hernia repair. ALLERGIES: INCLUDE 1. LEVAQUIN. 2. AMLODIPINE. 3. AMIODARONE. 4. TYLENOL. 5. BETA BLOCKERS. SOCIAL HISTORY: Former smoker. FAMILY HISTORY: Noncontributory. REVIEW OF SYSTEMS: Not obtainable. PHYSICAL EXAMINATION: VITAL SIGNS: None reported. HEENT: Normocephalic, atraumatic. He is not responsive. LUNGS: Clear to auscultation bilaterally. ABDOMEN: Soft, nondistended. Hypoactive bowel sounds. HEART: Regular rate and rhythm. EXTREMITIES: No edema, with ecchymoses. PSYCHIATRIC: Nonresponsive. ASSESSMENT AND PLAN: 1. Subdural hematoma: Rapid decline after a fall. Family has opted on hospice care. He is comfortable. Shallow respirations. Terminal. He requires inpatient hospice care due to pain management and initial agitation. No home support. 2. Past medical history of atrial fibrillation and nonischemic cardiomyopathy. He is status post automatic implantable cardioverter-defibrillator. Automatic implantable cardioverter-defibrillator has fired since arrival. It has been turned off. 3. Hospice will manage IV pain and agitation. 4. Prognosis is terminal. Job ID: [id number]
[2019-12-28] MEDS: Lorazepam 2 MG/ML VIAL SLOW IVP PRN ×3 (06:07→17:09)
[2019-12-28] MEDS: Morphine 2 MG/ML SYRINGE SLOW IVP PRN ×2 (06:07→13:37)
[2019-12-28] MEDS: Lorazepam 2 MG/ML VIAL SLOW IVP SCH ×2 (09:06→21:15)
[2019-12-28] MEDS: Morphine 2 MG/ML SYRINGE SLOW IVP SCH (09:06)
--- NOTE | 2019-12-28 09:49 | PRG ---
DATE OF SERVICE: SUBJECTIVE: He is nonresponsive. Shallow respirations. Comfortable. 400 mL of urine output through the night. No oral intake. OBJECTIVE: VITAL SIGNS: Temperature 98 degrees, oxygenation 98% on 2 L, blood pressure 136/72, pulse 70, respiratory rate 20. GENERAL: He is not responsive. HEENT: Normocephalic, atraumatic. LUNGS: Clear to auscultation bilaterally. ABDOMEN: Soft, nondistended. Hypoactive bowel sounds. EXTREMITIES: No edema. PSYCH: Nonverbal. Nonresponsive. ASSESSMENT AND PLAN: Subdural hematoma: Status post fall. Rapid decline. Family has opted for hospice. He is comfortable. He is terminal. Inpatient hospice management for agitation and IV pain management. Job ID: [id number]
[2019-12-28] MEDS: Morphine 4 MG/ML VIAL SLOW IVP SCH (21:14)
[2019-12-28] MEDS ORDERED: Morphine 2 MG/ML SYRINGE SLOW IVP SCH (22:00)
[2019-12-29] MEDS: Morphine 4 MG/ML VIAL SLOW IVP SCH ×3 (06:04→21:53)
[2019-12-29] MEDS: Lorazepam 2 MG/ML VIAL SLOW IVP SCH ×3 (06:04→21:52)
[2019-12-29] MEDS: Lorazepam 2 MG/ML VIAL SLOW IVP PRN (11:17)
[2019-12-29] MEDS: Morphine 4 MG/ML VIAL SLOW IVP PRN (11:18)
[2019-12-29] MEDS ORDERED: Hyoscyamine Sulfate SL 0.125 mg Tablet SL PRN (19:42)
[2019-12-29] MEDS ORDERED: Scopolamine 1.5 mg/72 hour Patch TOP SCH (20:00)
[2019-12-29 20:28] VITALS: BP 143/67; TEMP 100.2
[2019-12-30] MEDS: Morphine 4 MG/ML VIAL SLOW IVP PRN (02:39)
--- NOTE | 2019-12-31 14:54 | DIS ---
DATE OF ADMISSION: 12/27/2019 DATE OF DISCHARGE: 12/30/2019 DATE OF : 12/30/2019. BRIEF SUMMARY OF HOSPITAL COURSE: The patient is an 79-year-old white male, who was admitted to [facility] on 12/26/2019 after having a ground level fall on [facility]. The patient developed bilateral subdural hematoma. He had initial [place] Coma Scale of 12. He was admitted to Trauma Service. His traumatic brain injury was found to be very severe and got worse aggressive reversal of anticoagulation with FFP and platelet transfusion. Due to his worsening status, family decided to go with . The patient has multiple severe comorbid comorbidities including prostate cancer with metastases and multiple myeloma metastasis. The patient was admitted to Hospice, was given IV morphine for air hunger and pain management. He was also given IV Ativan for terminal restlessness as well as scopolamine patches to help with secretion control. The patient was made comfortable over the next few days during his hospice stay. The patient was found by nursing staff on 12/30/2019 at 04:25 a.m. to be without respirations and no heart beat. No response for stimuli. He was pronounced at 04:25. The body was released to the home per family wishes. Cause of was likely asystole secondary to cardiac arrhythmia caused by severe bilateral subdural hematomas. Job ID: [id number]
== END 2019-12-30 04:25 | disposition expired | DRG 951 ==
LOC: ONC 18:05
PROVIDERS: ADMIT Family Medicine; ATTEND Family Medicine
DX: Z51.5 Encounter for palliative care (principal); S06.5X9A Traumatic subdural hemorrhage with loss of consciousness of unspecified duration, initial encounter; C90.00 Multiple myeloma not having achieved remission; Z66 Do not resuscitate; J44.9 Chronic obstructive pulmonary disease, unspecified; F39 Unspecified mood [affective] disorder; H40.9 Unspecified glaucoma; C61 Malignant neoplasm of prostate; I10 Essential (primary) hypertension; I25.5 Ischemic cardiomyopathy; I48.91 Unspecified atrial fibrillation; I65.23 Occlusion and stenosis of bilateral carotid arteries; Z96.642 Presence of left artificial hip joint; W19.XXXA Unspecified fall, initial encounter; R40.2423 Glasgow coma scale score 9-12, at hospital admission; Z95.810 Presence of automatic (implantable) cardiac defibrillator; Z86.73 Personal history of transient ischemic attack (TIA), and cerebral infarction without residual deficits; Z89.422 Acquired absence of other left toe(s); Z88.1 Allergy status to other antibiotic agents; Z88.8 Allergy status to other drugs, medicaments and biological substances; Z87.891 Personal history of nicotine dependence
CPT/HCPCS: J2060; J2270